=== PATIENT | female | born 2000 | race Caucasian/White ===

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

== ENCOUNTER 2021-11-06 19:34 | Emergency (ER) | payer OTHER ==
[2021-11-06 22:01] LABS: Urine Blood Negative (Negative); Urine Glucose Negative (Negative); Urine Protein Negative (Negative); Urine Specific Gravity >=1.030 (1.005-1.030)
[2021-11-06 22:30] LABS: Albumin 4.1 g/dL (3.4-5.0); Bilirubin Total 0.5 mg/dL (0.2-1.0); Potassium 3.7 mmol/L (3.5-5.1)
[2021-11-06] MEDS ORDERED: ONDANSETRON 4 MG/2 ML VIAL ONE (22:31)
[2021-11-06] MEDS ORDERED: NA CHLORIDE 0.9% 1,000 ML ONE (22:32)
[2021-11-06 22:33] LABS: Absolute Lymphocytes (CBC) 2.8 K/uL (0.7-4.9); Hematocrit 36.9 % (36.0-45.0); Lymphocytes % 34.5 % (15.3-44.8); MCV 85.7 fL (80-100); MPV 9.3 fL (7.6-11.3)
[2021-11-07] MEDS ORDERED: ACETAMINOPHEN 500 MG TAB ONE (00:06)
--- NOTE | 2021-11-07 05:14 | EDPHYS ---
Physician Documentation [facility] Name: Zia Eric Age: 20 yrs Sex: Female : 2000 Arrival Date: 11/06/2021 Time: 19:37 Bed 16 Private MD: ED Physician Abhilash Anderson HPI: 11/07 03:38 This 20 yrs old Black Female presents to ER via Ambulatory with complaints of Abdominal kdr Pain, Diarrhea, Chest Congestion, Cough. 03:38 The patient presents to the emergency department with nausea, that is mild, vomiting, kdr that is intermittent, abdominal pain, of the suprapubic area, right lower quadrant and left lower quadrant. Onset: The symptoms/episode began/occurred gradually, 6 day(s) ago. Possible causes: unknown, sick contacts. The symptoms are aggravated by nothing. The symptoms are alleviated by nothing. Associated signs and symptoms: Pertinent positives: nausea, vomiting, Pertinent negatives: anorexia, belching, constipation, diarrhea, dysuria, fever, flatulence, GI bleeding, hematuria, vaginal discharge. Severity of symptoms: At their worst the symptoms were mild in the emergency department the symptoms are unchanged have improved markedly. The patient has not experienced similar symptoms in the past. The patient has not recently seen a physician. Patient presents to the ED this evening complaining of stomach cramps and congestion which she has had symptoms 02 November when she found out she was . Since then she has had this intermittent symptoms. She does not appear toxic in the ED. This is her first .. MEDICAL LANGUAGE SPECIALIST: 11/06 20:28 LMP 10/08/2021 [facility] Historical: - Allergies: 20:28 Ceftibuten; [facility] - Home Meds: 20:28 None [Active]; [facility] - PMHx: 20:28 Anxiety; Asthma; Bipolar disorder; Depression; suicidal ideation; [facility] - Immunization history:: Adult Immunizations up to date. - Social history:: Smoking status: Patient denies any tobacco usage or history of. ROS: 11/07 03:38 Constitutional: Negative for fever, chills, and weight loss, Eyes: Negative for injury, kdr pain, redness, and discharge, ENT: Negative for injury, pain, and discharge, Neck: Negative for injury, pain, and swelling, Cardiovascular: Negative for chest pain, palpitations, and edema, Respiratory: Negative for shortness of breath, cough, wheezing, and pleuritic chest pain, Back: Negative for injury and pain, : Negative for injury, bleeding, discharge, and swelling, MS/Extremity: Negative for injury and deformity, Skin: Negative for injury, rash, and discoloration, Neuro: Negative for headache, weakness, numbness, tingling, and seizure activity. Abdomen/GI: Positive for nausea and vomiting, abdominal cramps. Exam: 03:38 Constitutional: This is a well developed, well nourished patient who is awake, alert, kdr and in no acute distress. Head/Face: Normocephalic, atraumatic. Eyes: Pupils equal round and reactive to light, extra-ocular motions intact. Lids and lashes normal. Conjunctiva and sclera are non-icteric and not injected. Cornea within normal limits. Periorbital areas with no swelling, redness, or edema. Neck: Trachea midline, no thyromegaly or masses palpated, and no cervical lymphadenopathy. Supple, full range of motion without nuchal rigidity, or vertebral point tenderness. No Meningismus. Chest/axilla: Normal chest wall appearance and motion. Nontender with no deformity. No lesions are appreciated. Cardiovascular: Regular rate and rhythm with a normal S1 and S2. No gallops, murmurs, or rubs. Normal PMI, no JVD. No pulse deficits. Respiratory: Lungs have equal breath sounds bilaterally, clear to auscultation and percussion. No rales, rhonchi or wheezes noted. No increased work of breathing, no retractions or nasal flaring. Back: No spinal tenderness. No costovertebral tenderness. Full range of motion. Skin: Warm, dry with normal turgor. Normal color with no rashes, no lesions, and no evidence of cellulitis. MS/ Extremity: Pulses equal, no cyanosis. Neurovascular intact. Full, normal range of motion. Neuro: Awake and alert, GCS 15, oriented to person, place, time, and situation. Cranial nerves II-XII grossly intact. Motor strength 5/5 in all extremities. Sensory grossly intact. Cerebellar exam normal. Normal gait. Psych: Awake, alert, with orientation to person, place and time. Behavior, mood, and affect are within normal limits. 03:38 Abdomen/GI: Inspection: abdomen appears normal, Bowel sounds: normal, Palpation: soft, in all quadrants, nontender, in all quadrants, mass, is not appreciated, rebound tenderness, is not appreciated. Vital Signs: 11/06 20:27 BP 131 / 67; Pulse 61; Resp 18; Temp 98.1(TE); Pulse Ox 100% on R/A; Weight 56.7 kg; 1 Height 5 ft. 7 in. (170.18 cm); Pain 4/10; 22:00 BP 116 / 64; Pulse 60; Resp 18; Pulse Ox 100% ; bh1 23:00 BP 113 / 56; Pulse 67; Resp 18; Pulse Ox 100% on R/A; 1 11/07 01:13 BP 113 / 71; Pulse 56; Resp 17; Pulse Ox 100% on R/A; ll3 02:21 BP 109 / 65; Pulse 83; Resp 16; Pulse Ox 97% on R/A; ll3 03:34 BP 136 / 85; Pulse 64; Resp 17; Pulse Ox 98% on R/A; ll3 04:56 BP 130 / 70; Pulse 68; Resp 17; Pulse Ox 99% on R/A; ll3 11/06 20:27 Body Mass Index 19.58 (56.70 kg, 170.18 cm) [facility] MDM: 03:38 Data reviewed: vital signs, nurses notes, lab test result(s), radiologic studies. kdr Counseling: I had a detailed discussion with the patient and/or guardian regarding: the historical points, exam findings, and any diagnostic results supporting the discharge/admit diagnosis, lab results, radiology results. Special discussion: Based on the patient's Hx, exam, and Dx evaluation, there is no indication for emergent surgery or inpatient Tx. It is understood by the patient/guardian that if the Sx's persist or worsen they need to return immediately for re-evaluation. 05:13 Patient medically screened. kdr 11/06 21:10 Order name: CBC with Diff; Complete Time: 22:53 kdr 11/06 21:10 Order name: CMP; Complete Time: 22:53 kdr 11/06 21:10 Order name: Lipase; Complete Time: 22:53 kdr 11/06 21:10 Order name: Quantitative Hcg; Complete Time: 22:53 kdr 11/06 21:11 Order name: COVID-19 SARS RT PCR (Document "Date of Onset" if Symptomatic); Complete kdr Time: 22:53 11/06 21:11 Order name: Flu; Complete Time: 22:53 [facility] 11/06 21:10 Order name: IV Saline Lock; Complete Time: 22:07 [facility] 11/06 22:01 Order name: Urine Dipstick-Ancillary; Complete Time: 22:53 [facility] 11/06 23:26 Order name: US Abdomen Limited kdr 11/06 23:58 Order name: Transvaginal OB [facility] 11/06 21:10 Order name: Labs collected and sent; Complete Time: 22:07 [facility] 11/06 21:10 Order name: Urine Dipstick-Ancillary (obtain specimen); Complete Time: 22:06 [facility] Administered Medications: 11/06 22:31 Drug: NS 0.9% 1000 ml Route: IV; Rate: 1 bolus; Site: left antecubital; [facility] 23:43 Follow up: IV Status: Completed infusion; IV Intake: 1000ml [facility] 22:31 Drug: Zofran (Ondansetron) 4 mg Route: IVP; Site: left antecubital; [facility] 22:31 Follow up: Response: No adverse reaction [facility] 23:57 Drug: Tylenol 1000 mg Route: PO; [facility] 11/07 05:20 Follow up: Response: No adverse reaction 3 Disposition Summary: 11/07/21 05:13 Discharge Ordered Location: Home kdr Problem: new kdr Symptoms: have improved kdr Condition: Stable kdr Diagnosis - Lower abdominal pain, unspecified kdr - Encounter for supervision of normal first , first trimester kdr - Weeks of gestation of , unspecified or less than 10 weeks - 4 week/6 days kdr Followup: kdr - With: Private Physician - When: 2 - 3 days - Reason: If symptoms return, Further diagnostic work-up, Recheck today's complaints, Continuance of care, Re-evaluation by your physician Discharge Instructions: - Discharge Summary Sheet kdr - Abdominal Pain During kdr - First Trimester of , [id number] kdr - Abdominal Pain, Adult, [id number] kdr Forms: - Medication Reconciliation Form kdr - Thank You Letter kdr Signatures: Dispatcher Abhilash Summers MD MD kdr Adriana Greene RN RN [facility] Owen Cifuentes RN 3 Corrections: (The following items were deleted from the chart) 11/07 19: 20:28 Allergies: NKA; [place] [id number] 20:28 Home Meds: Abilify 7.5 mg Oral once daily; [place] [id number] 20: Home Meds: Depo-Provera intramuscular IM; [place] [id number] 20:28 Home Meds: Lexapro daily; [place] [address] 20:28 Home Meds: ProAir HFA inhalation; [place] [id number] 20:28 Home Meds: trazodone 100 mg Oral tab 1 tab once daily at bedtime; [place] [id number]
--- NOTE | 2021-11-07 05:14 | ER ---
Nurse's Notes [facility] Name: Zia Eric Age: 20 yrs Sex: Female : 2000 Arrival Date: 11/06/2021 Time: 19:37 Bed 16 Private MD: Diagnosis: Lower abdominal pain, unspecified;Encounter for supervision of normal first , first trimester;Weeks of gestation of , unspecified or less than 10 weeks-4 week/6 days Presentation: 11/06 20:27 Chief complaint: Patient states: N/V, STOMACH CRAMPS, AND CONGESTION SINCE 11/02 WHEN [facility] SHE FOUND OUT SHE WAS . Coronavirus screen: Vaccine status: Patient reports receiving the 2nd dose of the covid vaccine. Ebola Screen: Patient negative for fever greater than or equal to 101.5 degrees Fahrenheit, and additional compatible Ebola Virus Disease symptoms. Initial Sepsis Screen: Does the patient meet any 2 criteria? No. Patient's initial sepsis screen is negative. Does the patient have a suspected source of infection? No. Patient's initial sepsis screen is negative. Risk Assessment: Do you want to hurt yourself or someone else? Patient reports no desire to harm self or others. Onset of symptoms was November 06, 2021. 20:27 Method Of Arrival: Ambulatory [facility] 20:27 Acuity: EJ 4 [facility] Triage Assessment: 20:28 General: Appears in no apparent distress. Behavior is cooperative, appropriate for age, [facility] flat. Pain: Complains of pain in abdomen. GI: Reports cramping, diarrhea, nausea, vomiting. 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 - Social history:: Smoking status: Patient denies any tobacco usage or history of. Screenin:30 Abuse screen: Denies threats or abuse. Nutritional screening: No deficits noted. [facility] Tuberculosis screening: No symptoms or risk factors identified. Fall Risk None identified. Assessment: 22:29 Reassessment: No changes from previously documented assessment. [facility] 11/07 01:13 Reassessment: No changes from previously documented assessment. Patient and/or family ll3 updated on plan of care and expected duration. Pain level reassessed. Patient is alert, oriented x 3, equal unlabored respirations, skin warm/dry/pink. 02:21 Reassessment: Pt c/o LLQ pain 6/10, Dr. Anderson notified, no new orders at this time. ll3 03:24 Reassessment: No changes from previously documented assessment. Patient and/or family ll3 updated on plan of care and expected duration. Pain level reassessed. Patient is alert, oriented x 3, equal unlabored respirations, skin warm/dry/pink. 04:56 Reassessment: No changes from previously documented assessment. Patient and/or family ll3 updated on plan of care and expected duration. Pain level reassessed. Patient is alert, oriented x 3, equal unlabored respirations, skin warm/dry/pink. Vital Signs: 11/06 20:27 BP 131 / 67; Pulse 61; Resp 18; Temp 98.1(TE); Pulse Ox 100% on R/A; Weight 56.7 kg; 1 Height 5 ft. 7 in. (170.18 cm); Pain 4/10; 22:00 BP 116 / 64; Pulse 60; Resp 18; Pulse Ox 100% ; 1 23:00 BP 113 / 56; Pulse 67; Resp 18; Pulse Ox 100% on R/A; 1 11/07 01:13 BP 113 / 71; Pulse 56; Resp 17; Pulse Ox 100% on R/A; ll3 02:21 BP 109 / 65; Pulse 83; Resp 16; Pulse Ox 97% on R/A; ll3 03:34 BP 136 / 85; Pulse 64; Resp 17; Pulse Ox 98% on R/A; ll3 04:56 BP 130 / 70; Pulse 68; Resp 17; Pulse Ox 99% on R/A; ll3 11/06 20:27 Body Mass Index 19.58 (56.70 kg, 170.18 cm) [facility] ED Course: 11/06 19:37 Patient arrived in ED. ja2 20:28 Triage completed. 1 20:28 Arm band placed on right wrist. [facility] 20:58 Abhilash Anderson MD is Attending Physician. kdr 22:06 COVID-19 SARS RT PCR (Document "Date of Onset" if Symptomatic) Sent. [facility] 22:06 Quantitative Hcg Sent. 1 22:06 CBC with Diff Sent. 1 22:07 CMP Sent. 1 22:07 Lipase Sent. [facility] 22:07 No provider procedures requiring assistance completed. Inserted saline lock: 20 gauge bh1 in left antecubital area, using aseptic technique. Blood collected. 22:29 Adriana Greene, RN is Primary Nurse. [facility] 22:29 Patient has correct armband on for positive identification. [facility] 22:30 No apparent distress. Awaiting lab results. [facility] 22:30 Patient taken to an exam room. [facility] 22:30 Pulse ox on. NIBP on. [facility] 11/07 00:43 US Abdomen Limited In Process Unspecified. EDMS 00:43 Transvaginal OB In Process Unspecified. [facility] 05:20 IV discontinued, intact, bleeding controlled, No redness/swelling at site. Pressure ll3 dressing applied. Administered Medications: 11/06 22:31 Drug: NS 0.9% 1000 ml Route: IV; Rate: 1 bolus; Site: left antecubital; [facility] 23:43 Follow up: IV Status: Completed infusion; IV Intake: 1000ml [facility] 22:31 Drug: Zofran (Ondansetron) 4 mg Route: IVP; Site: left antecubital; [facility] 22:31 Follow up: Response: No adverse reaction [facility] 23:57 Drug: Tylenol 1000 mg Route: PO; [facility] 11/07 05:20 Follow up: Response: No adverse reaction 3 Medication: 11/06 22:30 VIS not applicable for this client. [facility] Intake: 23:43 IV: 1000ml; Total: 1000ml. [facility] Outcome: 11/07 05:13 Discharge ordered by . kdr 05:20 Discharged to home ambulatory, with family. ll3 05:20 Condition: stable 05:20 Discharge instructions given to patient, family, Instructed on discharge instructions, follow up and referral plans. Demonstrated understanding of instructions, follow-up care. 05:20 Patient left the ED. ll3 Signatures: Dispatcher [employer] EDMS Abhilash Anderson MD MD kdr Alexander, Jessica ja2 Loubet, Lynsea RN RN 3 Adriana Greene, KATHLEEN RN [facility] Corrections: (The following items were deleted from the chart) 11/07 19: 20:28 Allergies: NKA; [place] [id number] 20:28 Home Meds: Abilify 7.5 mg Oral once daily; [place] [id number] 20: Home Meds: Depo-Provera intramuscular IM; [place] [id number] 20: Home Meds: Lexapro daily; [place] [id number] 20:28 Home Meds: ProAir HFA inhalation; [place] [id number] 20:28 Home Meds: trazodone 100 mg Oral tab 1 tab once daily at bedtime; [place] [id number]
[2021-11-07 05:32] VITALS: TEMP 98.1
[2021-11-07 05:43] VITALS: BP 130/70; O2SAT 99
--- NOTE | 2021-11-07 10:25 | RAD REPORT ---
EXAM DESCRIPTION: US Abdomen Limited, Appendix CLINICAL HISTORY: The patient is 20 years old and is Female; ABD PAIN TECHNIQUE: Real-time ultrasound of the right lower quadrant with image documentation. COMPARISON: No relevant prior studies available. FINDINGS: Appendix: Appendix is not identified. Free fluid: No free fluid. IMPRESSION: Appendix not visualized. No free fluid. Electronically signed by: Indigo Spann MD 11/07/2021 4:57 AM CDT Due to temporary technical issues with the PACS/Fluency reporting system, reports are being signed by the in house radiologists without review as a courtesy to insure prompt reporting. The interpreting radiologist is fully responsible for the content of the report.
--- NOTE | 2021-11-07 10:26 | RAD REPORT ---
EXAM DESCRIPTION: Transvaginal OB CLINICAL HISTORY: 20 years Female, abd pain COMPARISON: None. TECHNIQUE: Sonographic imaging of the pelvis performed using a transvaginal transducer. FINDINGS: Uterus measures 6.4 cm x 3.4 cm x 4.3 cm and appears anteverted. Endometrial thickness is 0.6 cm. There is a tiny anechoic structure within the endometrial canal of the uterine fundus which c ould represent a tiny gestational sac with mean sac diameter of 0.29 cm corresponding to an estimated gestational age of 4 weeks and 6 days. No evidence of a pole or yolk sac. Right ovary measures 2.8 cm x 1.47 x 1.9 cm. Left ovary measures 3.3 cm x 2.2 cm x 2.6 cm. Both ovari es demonstrate Doppler flow. No adnexal mass. There is a trace amount of free fluid in the pelvis. IMPRESSION: Possible small early intrauterine gestational sac with estimated age by mean sac diamete r of 4 years and 6 days. pole is not visualized which could be related to early . Cons ider close interval follow-up ultrasound correlated with beta-hCG level. Electronically signed by: Terrell Juarez MD 11/07/2021 2:13 AM CDT Due to temporary technical issues with the PACS/Fluency reporting system, reports are being signed by the in house radiologists without review as a courtesy to insure prompt reporting. The interpreting radiologist is fully responsible for the content of the report.
== END 2021-11-07 05:20 | disposition home or self-care (01) ==
LOC: ER 19:34
DX: O26.891 Other specified pregnancy related conditions, first trimester (principal); Z3A.01 Less than 8 weeks gestation of pregnancy; Z88.8 Allergy status to other drugs, medicaments and biological substances
CPT/HCPCS: 36415; 76705; 76817; 80053; 81003; 83690; 84702; 85025; 87804 ×2; J2405; J7030; U0003; 96361; 96374; 99284

== ENCOUNTER 2022-03-16 20:53 | Emergency (ER) | payer OTHER ==
[2022-03-16] MEDS ORDERED: NA CHLORIDE 0.9% 1,000 ML ONE (22:43)
[2022-03-16] MEDS ORDERED: ONDANSETRON 4 MG/2 ML VIAL ONE (22:43)
[2022-03-16] MEDS ORDERED: DICYCLOMINE HCL 20 MG/2 ML AMP IM ONE (22:43)
[2022-03-16] MEDS ORDERED: ACETAMINOPHEN 500 MG TAB ONE (22:43)
[2022-03-16 22:56] LABS: SARS-COV-2 RT PCR NEGATIVE (NEGATIVE)
[2022-03-16 23:18] LABS: Absolute Lymphocytes (CBC) 1.9 K/uL (0.7-4.9); Lymphocytes % 13.8 % (15.3-44.8); MCV 86.7 fL (80-100); MPV 8.4 fL (7.6-11.3); RBC Red Blood Cell Count 3.69 M/uL (3.86-4.86)
[2022-03-16 23:21] LABS: Urine Blood Negative (Negative); Urine Glucose Trace (Negative); Urine Protein Negative (Negative)
[2022-03-16 23:35] LABS: Albumin 3.1 g/dL (3.4-5.0); Bilirubin Total 0.3 mg/dL (0.2-1.0); Potassium 3.6 mmol/L (3.5-5.1); Protein, Total 6.5 g/dL (6.4-8.2)
[2022-03-16 23:58] LABS: Urine Bacteria <20 /HPF (<20); Urine Mucus Slight /HPF (None Seen); Urine RBC <5 /HPF (None Seen)
--- NOTE | 2022-03-17 01:44 | EDPHYS ---
Physician Documentation [facility] Name: Zia Eric Age: 21 yrs Sex: Female : 2000 Arrival Date: 03/16/2022 Time: 20:57 Bed 5 Private MD: ED Physician Zev Silveira HPI: 03/17 00:14 This 21 yrs old Black Female presents to ER via Ambulatory with complaints of Fever, cp Sore Throat. 00:14 The patient reports fever, not measured (subjective). Onset: The symptoms/episode cp began/occurred 1 day(s) ago. 00:14 Associated signs and symptoms: Pertinent positives: abdominal pain, cough, times 1 cp week. nausea, sore throat, vomiting. Severity of symptoms: in the emergency department the symptoms are unchanged despite home interventions. Patient is 22 weeks and concerned that she has not felt baby move over past 3 hrs. Patient denies vaginal bleeding, denies leakage of fluids. [employer]: 03/16 21:54 1, 0, Living 0, LMP 10/13/2021, Verified, EDC 07/20/2022, kb3 Gestational age from LMP: 22 weeks 1 day Historical: - Allergies: 21:54 Ceftibuten; kb3 - Home Meds: 21:54 Abilify 7.5 mg Oral once daily [Active]; Lexapro daily [Active]; ProAir HFA inhalation kb3 [Active]; trazodone 100 mg Oral tab 1 tab once daily at bedtime [Active]; - PMHx: 21:54 Anxiety; Asthma; Bipolar disorder; Depression; suicidal ideation; kb3 - PSHx: 21:54 None; kb3 - Immunization history:: Adult Immunizations up to date, Client reports receiving the 2nd dose of the Covid vaccine, Last tetanus immunization: unknown. - Social history:: Smoking status: Patient/guardian denies using tobacco, Stopped _ months ago 3. ROS: 03/17 00:20 Constitutional: Negative for fever. cp 00:20 Eyes: Negative for injury, pain, redness, and discharge. cp 00:20 ENT: Positive for sore throat, Negative for drainage from ear(s), ear pain, difficulty swallowing, difficulty handling secretions. 00:20 Cardiovascular: Negative for chest pain, palpitations. 00:20 Respiratory: Positive for cough, Negative for shortness of breath, wheezing. 00:20 Abdomen/GI: Positive for abdominal pain, nausea and vomiting, Negative for diarrhea, constipation, anorexia, black/tarry stool, rectal bleeding. 00:20 : Negative for urinary symptoms, flank pain, vaginal bleeding, vaginal discharge, leakage of fluids. 00:20 Neuro: Negative for altered mental status, dizziness, headache, weakness. 00:20 All other systems are negative. Exam: 00:25 Constitutional: The patient appears in no acute distress, alert, awake, non-toxic, well cp developed, well nourished, uncomfortable. 00:25 Head/Face: Normocephalic, atraumatic. cp 00:25 Eyes: Periorbital structures: appear normal, Conjunctiva: normal, no exudate, no injection, Sclera: no appreciated abnormality, Lids and lashes: appear normal, bilaterally. 00:25 ENT: External ear(s): are unremarkable, Ear canal(s): are normal, clear, TM's: bulging, is not appreciated, bilaterally, dullness, bilaterally, erythema, is not appreciated, bilaterally, Nose: is normal, Mouth: Lips: moist, Oral mucosa: moist, Posterior pharynx: Airway: no evidence of obstruction, patent, Tonsils: with erythema, no enlargement, no exudate, swelling, is not appreciated, erythema, that is mild, exudate, is not appreciated. 00:25 Neck: ROM/movement: is normal, is supple, without pain, no range of motions limitations, no meningismus, Lymph nodes: no appreciated lymphadenopathy. 00:25 Chest/axilla: Inspection: normal. 00:25 Cardiovascular: Rate: tachycardic, Rhythm: regular. 00:25 Respiratory: the patient does not display signs of respiratory distress, Respirations: normal, no use of accessory muscles, no retractions, labored breathing, is not present, Breath sounds: are clear throughout, no decreased breath sounds, no stridor, no wheezing. 00:25 Abdomen/GI: Inspection: gravid appearance, is noted, Bowel sounds: active, all quadrants, Palpation: soft, in all quadrants, moderate abdominal tenderness, in the left upper quadrant, right lower quadrant and left lower quadrant, rebound tenderness, is not appreciated, voluntary guarding, is elicited in the left upper quadrant, right lower quadrant and left lower quadrant. 00:25 Back: pain, is absent, ROM is normal. Vital Signs: 03/16 21:46 BP 120 / 74; Pulse 100; Resp 20; Temp 98.7; Pulse Ox 97% ; Weight 70.31 kg; Height 5 kb3 ft. 6 in. (167.64 cm); Pain 2/10; 23:19 BP 116 / 75; Pulse 80; Resp 16; Pulse Ox 100% on R/A; kl 03/17 02:08 Pulse 78; Resp 20; Pulse Ox 99% ; kl 03/16 21:46 Body Mass Index 25.02 (70.31 kg, 167.64 cm) kb3 MDM: 03/16 22:07 Patient medically screened. cp 03/17 00:00 Differential diagnosis: viral Infection, bacterial infection, URI, bronchitis, cp pneumonia UTI, gastroenteritis. 01:43 Data reviewed: vital signs, nurses notes, lab test result(s), radiologic studies, plain cp films, ultrasound. 01:43 Test interpretation: by ED physician or midlevel provider: plain radiologic studies. cp Counseling: I had a detailed discussion with the patient and/or guardian regarding: the historical points, exam findings, and any diagnostic results supporting the discharge/admit diagnosis, lab results, radiology results, the need for outpatient follow up, an OB/Gyne specialist, to return to the emergency department if symptoms worsen or persist or if there are any questions or concerns that arise at home. Response to treatment: the patient's symptoms have markedly improved after treatment, and as a result, I will discharge patient. 01:44 Special discussion: Based on the patient's Hx, exam, and Dx evaluation, there is no cp indication for emergent surgery or inpatient Tx. It is understood by the patient/guardian that if the Sx's persist or worsen they need to return immediately for re-evaluation. 01:44 ED course: Patient declines going upstairs to L\T\D for monitoring of baby at this time. cp 03/16 21:53 Order name: Urine Microscopic Only; Complete Time: 00:11 cp 03/17 00:12 Interpretation: Reviewed. cp 03/16 21:53 Order name: COVID-19/FLU A+B/RSV; Complete Time: 00:11 cp 03/16 21:53 Order name: Strep; Complete Time: 00:11 cp 12/02 22:33 Order name: CBC with Diff; Complete Time: 00:11 cp 03/17 00:11 Interpretation: Normal except: WBC 13.80; RBC 3.69; HGB 10.9; HCT 32.0; JACOB% 78.4; LYM% cp 13.8; NEUT A 10.8. 12 22:33 Order name: CMP; Complete Time: 00:11 cp 03/17 00:11 Interpretation: Normal except: CL 109; GLUC 71; BUN 6; CRE 0.54; AST 13; ALB 3.1; A/G cp 0.9. 12 22:33 Order name: Lipase; Complete Time: 00:11 cp 03/16 23:21 Order name: Urine Dipstick-Ancillary; Complete Time: 00:12 EDOH 03/17 00:12 Interpretation: Reviewed. 03/16 23:24 Order name: Throat Culture EDOH 03/16 23:30 Order name: Urine --Ancillary (enter results); Complete Time: 00:11 ds4 03/17 00:13 Order name: XRAY Chest (1 view) 03/17 00:32 Order name: US Abdomen Limited: gallbladder 03/17 00:55 Order name: OB Limited EDOH 03/16 21:53 Order name: Urine Dipstick-Ancillary (obtain specimen); Complete Time: 23:32 03/16 21:53 Order name: Urine Test (obtain specimen); Complete Time: 23:32 03/16 21:54 Order name: FHT's; Complete Time: 23:19 03/16 22:33 Order name: IV Saline Lock; Complete Time: 23:13 03/16 22:33 Order name: Labs collected and sent; Complete Time: 23:13 cp Administered Medications: 03/16 23:10 Drug: Dicyclomine 20 mg Route: IM; Site: left deltoid; 03/17 00:31 Follow up: Response: No adverse reaction; Marked relief of symptoms 03/16 23:19 Not Given (Patient Refused): Tylenol 1000 mg PO once 23:19 Drug: NS 0.9% 1000 ml Route: IV; Rate: 1 bolus; Site: right antecubital; 03/17 00:32 Follow up: IV Status: Completed infusion; IV Intake: 1000ml 03/16 23:19 Drug: Zofran (Ondansetron) 4 mg Route: IVP; Site: right antecubital; 03/17 00:32 Follow up: Response: No adverse reaction; Marked relief of symptoms Disposition: 02:30 Co-signature as Attending Physician, Zev Silveira DO I was immediately available onsite ms3 in the emergency department for consultation in the care of the patient. Disposition Summary: 03/17/22 01:44 Discharge Ordered Location: Home cp Problem: new cp Symptoms: have improved cp Condition: Stable cp Diagnosis - Acute pharyngitis, unspecified cp - related conditions, unspecified, second trimester cp - Nausea with vomiting, unspecified cp - Abdominal pain, unspecified cp - Cough cp Followup: cp - With: Private Physician - When: 2 - 3 days - Reason: Recheck today's complaints Discharge Instructions: - Discharge Summary Sheet cp - Abdominal Pain During cp - Second Trimester of cp - Activity Restriction During cp - Cough, Adult cp - Pharyngitis cp - Eating Plan for Women cp Forms: - Medication Reconciliation Form cp - Thank You Letter cp - Antibiotic Education cp - Prescription Opioid Use cp Prescriptions: - Amoxicillin 875 mg Oral Tablet - take 1 tablet by ORAL route every 12 hours for 10 days; 20 tablet; Refills: 0, cp Product Selection Permitted Signatures: Dispatcher [employer] EDMS Elena Dias, RN RN Garret Xiong PA PA cp Zev Silveira DO DO ms3 Phyllis Chan RN RN kb3 Corrections: (The following items were deleted from the chart) 03/16 21:55 21:54 Home Meds: Depo-Provera intramuscular IM; kb3 kb3 03/17 00:55 00:33 OB Complete+US.RAD.BRZ ordered. EDMS EDMS
--- NOTE | 2022-03-17 01:44 | ER ---
Nurse's Notes [facility] Name: Zia Eric Age: 21 yrs Sex: Female : 2000 Arrival Date: 03/16/2022 Time: 20:57 Bed 5 Private MD: Diagnosis: Acute pharyngitis, unspecified; related conditions, unspecified, second trimester;Nausea with vomiting, unspecified;Abdominal pain, unspecified;Cough Presentation: 03/16 21:46 Chief complaint: Patient states: Pt reports fever x 1 day, productive cough x1 week, kb3 and sore throat x2 days. States she is 22 weeks and has not felt the baby move in 3 hrs. Coronavirus screen: Vaccine status: Patient reports receiving the 2nd dose of the covid vaccine. Ebola Screen: Patient negative for fever greater than or equal to 101.5 degrees Fahrenheit, and additional compatible Ebola Virus Disease symptoms Patient denies exposure to infectious person. Patient denies travel to an Ebola-affected area in the 21 days before illness onset. No symptoms or risks identified at this time. Initial Sepsis Screen: Does the patient meet any 2 criteria? No. Patient's initial sepsis screen is negative. Does the patient have a suspected source of infection? No. Patient's initial sepsis screen is negative. Risk Assessment: Do you want to hurt yourself or someone else? Patient reports no desire to harm self or others. Onset of symptoms is unknown. 21:46 Method Of Arrival: Ambulatory kb3 21:46 Acuity: EJ 3 kb3 Triage Assessment: 21:54 General: Appears in no apparent distress. Behavior is calm, cooperative. Pain: kb3 Complains of pain in suprapubic area, right lower quadrant and left lower quadrant Pain does not radiate. Pain currently is 3 out of 10 on a pain scale. Quality of pain is described as crampy. 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 - Social history:: Smoking status: Patient/guardian denies using tobacco, Stopped _ months ago 3. Screenin:21 Abuse screen: Denies threats or abuse. Nutritional screening: No deficits noted. kl Tuberculosis screening: No symptoms or risk factors identified. Fall Risk None identified. Assessment: 23:20 General: Appears in no apparent distress. comfortable, Behavior is calm, cooperative. kl Pain: Complains of pain in left lower quadrant and right lower quadrant and suprapubic area. Neuro: No deficits noted. Cardiovascular: No deficits noted. Respiratory: Airway is patent Respiratory effort is even, unlabored, Breath sounds are clear bilaterally. GI: Reports lower abdominal pain, upper abdominal pain. : No deficits noted. No signs and/or symptoms were reported regarding the genitourinary system. EENT: No deficits noted. Throat is pink. 03/17 02:00 Reassessment: Patient appears in no apparent distress at this time. Patient and/or kl family updated on plan of care and expected duration. Pain level reassessed. Patient is alert, oriented x 3, equal unlabored respirations, skin warm/dry/pink. Patient states symptoms have improved. Vital Signs: 03/16 21:46 BP 120 / 74; Pulse 100; Resp 20; Temp 98.7; Pulse Ox 97% ; Weight 70.31 kg; Height 5 kb3 ft. 6 in. (167.64 cm); Pain 2/10; 23:19 BP 116 / 75; Pulse 80; Resp 16; Pulse Ox 100% on R/A; kl 03/17 02:08 Pulse 78; Resp 20; Pulse Ox 99% ; kl 03/16 21:46 Body Mass Index 25.02 (70.31 kg, 167.64 cm) kb3 ED Course: 03/16 20:57 Patient arrived in ED. ja2 21:06 Garret Vila PA is PHCP. cp 21:07 Silveira, Zev, DO is Attending Physician. cp 21:54 Triage completed. kb3 21:54 Arm band placed on right wrist. kb3 22:06 Strep Sent. tw5 22:06 COVID-19/FLU A+B/RSV Sent. tw5 23:00 Initial lab(s) drawn, by me, sent to lab. Inserted saline lock: 20 gauge in right wm antecubital area, using aseptic technique. Blood collected. 23:13 CBC with Diff Sent. wm 23:13 CMP Sent. wm 23:13 Lipase Sent. wm 23:19 CBC with Diff Sent. kl 23:19 CMP Sent. kl 23:19 Lipase Sent. kl 23:20 Client placed on continuous cardiac and pulse oximetry monitoring. NIBP monitoring kl applied. FHT 158. 23:31 Urine collected: clean catch specimen, cloudy. 23:32 Urine Microscopic Only Sent. 12/ 01:37 XRAY Chest (1 view) In Process Unspecified. EDMS 01:54 US Abdomen Limited: gallbladder In Process Unspecified. EDMS 01:54 OB Limited In Process Unspecified. EDMS 02:04 Dressings: Band aid x 1 right antecubital area. Removal of peripheral IV. Catheter wm intact, dressing applied. 02:22 No provider procedures requiring assistance completed. IV discontinued, intact, kl bleeding controlled, No redness/swelling at site. Pressure dressing applied. 02:23 Patient has correct armband on for positive identification. kl Administered Medications: 03/16 23:10 Drug: Dicyclomine 20 mg Route: IM; Site: left deltoid; 03/17 00:31 Follow up: Response: No adverse reaction; Marked relief of symptoms 03/16 23:19 Not Given (Patient Refused): Tylenol 1000 mg PO once 23:19 Drug: NS 0.9% 1000 ml Route: IV; Rate: 1 bolus; Site: right antecubital; 03/17 00:32 Follow up: IV Status: Completed infusion; IV Intake: 1000ml 03/16 23:19 Drug: Zofran (Ondansetron) 4 mg Route: IVP; Site: right antecubital; 03/17 00:32 Follow up: Response: No adverse reaction; Marked relief of symptoms Medication: 02:23 VIS not applicable for this client. kl Intake: 00:32 IV: 1000ml; Total: 1000ml. kl Outcome: 01:44 Discharge ordered by . cp 02:22 Discharged to home ambulatory, with family. kl 02:22 Condition: stable 02:22 Discharge instructions given to patient, family, Instructed on discharge instructions, follow up and referral plans. medication usage, Demonstrated understanding of instructions, follow-up care, medications, Prescriptions given X 1. 02:23 Patient left the ED. Signatures: Dispatcher [employer] EDMS Elena Dias RN RN Garret Xiong PA PA cp Marsh, Wendy wm Alexander, Jessica Moni [facility] Phyllis Chan RN RN kb3 Corrections: (The following items were deleted from the chart) 03/16 21:55 21:54 Home Meds: Depo-Provera intramuscular IM; kb3 kb3
[2022-03-17 02:39] VITALS: TEMP 98.7
[2022-03-17 02:44] VITALS: BP 116/75
[2022-03-17 02:50] VITALS: O2SAT 99
--- NOTE | 2022-03-17 20:27 | RAD REPORT ---
EXAM DESCRIPTION: RAD - Chest Single View - 03/17/2022 1:35 am CLINICAL HISTORY: Cough COMPARISON: Chest 2 Views AP PA Lateral 09/01/2020 report without images TECHNIQUE: Chest 1 View AP FINDINGS: Trachea midline. Heart size and pulmonary vessels within normal limits. Lungs clear without evidence of consolidation, mass, or significant pulmonary edema. No significant pleural effusion or pneumothorax. Mild symmetric bilateral lower lungs/chest density most likely represents overlying breast/chest wall attenuation artifact. Bones unremarkable. IMPRESSION: Normal chest radiograph. Electronically signed by: Ricardo Candelaria MD 03/17/2022 1:47 AM DIRECTOR RECREATION CENTER Due to temporary technical issues with the PACS/Fluency reporting system, reports are being signed by the in house radiologists without review as a courtesy to insure prompt reporting. The interpreting radiologist is fully responsible for the content of the report.
--- NOTE | 2022-03-17 20:28 | RAD REPORT ---
EXAM DESCRIPTION: US - Abdomen Exam Limited - 03/17/2022 1:52 am CLINICAL HISTORY: The patient is 21 years old and is Female; ABD PAIN TECHNIQUE: Real-time ultrasound of the right upper quadrant with image documentation. COMPARISON: No relevant prior studies available. FINDINGS: Gallbladder: Unremarkable. No gallstones. Common bile duct: Unremarkable as visualized. No stones. No dilation. IMPRESSION: Normal right upper quadrant ultrasound. Electronically signed by: Hector Fiore MD 03/17/2022 2:04 AM RN ANTE PARTUM Due to temporary technical issues with the PACS/Fluency reporting system, reports are being signed by the in house radiologists without review as a courtesy to insure prompt reporting. The interpreting radiologist is fully responsible for the content of the report.
--- NOTE | 2022-03-17 20:30 | RAD REPORT ---
EXAM DESCRIPTION: US - OB Limited - 03/17/2022 1:52 am CLINICAL HISTORY: ABD PAIN TECHNIQUE: Real-time transabdominal obstetrical ultrasound of the maternal pelvis and a second or th ird trimester with image documentation. COMPARISON: No relevant prior studies available. FINDINGS: Fetus: Single intrauterine gestation. Heart rate: cardiac activity measures 141 BPM. Presentation: Breech presentation. Placenta: The placenta is anterior in location. No previa. Amniotic fluid: Unremarkable. Anatomy: Calvarium, lateral ventricles, cerebellum, cisterna magna, orbits, nose/lips, profile, spi ne, four-chamber heart, diaphragm, stomach, bladder, three-vessel cord and cord insertion are visuali zed. BIOMETRICS Gestational age: 22 weeks 6 days. MARGOTH: 07/15/2022. EFW: 1 lbs 4 oz. BPD: 5.52 cm, 22 weeks 5 days. HC: 20.78 cm, 22 weeks 6 days. AC: 18.89 cm, 23 weeks 4 days. FL: 3.93 cm, 22 weeks 4 days. MATERNAL: Uterus: Unremarkable. No myometrial mass. Cervix: Unremarkable as visualized. Closed. Adnexa: Neither ovary is visualized. Free fluid: No free fluid. IMPRESSION: 1. Single live intrauterine gestation. 2. Estimated gestational age by ultrasound is 22 weeks 6 days. 3. Estimated due date by ultrasound is 07/15/2022. Electronically signed by: Candace Hyde MD 03/17/2022 2:41 AM MIDDLE SCHOOL ENGLISH TEACHER Due to temporary technical issues with the PACS/Fluency reporting system, reports are being signed by the in house radiologists without review as a courtesy to insure prompt reporting. The interpreting radiologist is fully responsible for the content of the report.
== END 2022-03-17 02:23 | disposition home or self-care (01) ==
LOC: ER 20:53
DX: O21.9 Vomiting of pregnancy, unspecified (principal); O26.892 Other specified pregnancy related conditions, second trimester; O99.342 Other mental disorders complicating pregnancy, second trimester; F31.9 Bipolar disorder, unspecified; Z3A.00 Weeks of gestation of pregnancy not specified; Z88.8 Allergy status to other drugs, medicaments and biological substances; Z20.822 Contact with and (suspected) exposure to COVID-19
CPT/HCPCS: 96361; 87070; 85025; 36415; 81025; 87081; 83690; 80053; 0241U; 71045; 76705; 76815; 96372; 96374; 99284; J0500; J7030; J2405; 81003; 81015

== ENCOUNTER → 2023-05-05 | Emergency (ER) | payer OTHER, SELFPAY ==
[~2023-05-05] MED LIST: AMOX/K CLAV 875 MG TAB ONE
--- NOTE | 2023-05-05 20:43 | EDPHYS ---
Physician Documentation [facility] Name: Zia Eric Age: 22 yrs Sex: Female : 2000 Arrival Date: 05/05/2023 Time: 20:31 Bed IW1 Private MD: ED Physician Zev Silveira HPI: 05/05 20:46 This 22 yrs old Black Female presents to ER via Ambulatory with complaints of Hearing kb problem with pressure. 20:46 Patient is a 22-year-old female who presents with decreased hearing to right ear and kb pressure in the left ear that started at 5 PM today. States she has had a upper respiratory infection over the last week. Denies fever.. 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 - Social history:: Smoking status: Reported history of juuling and/or vaping. ROS: 20:46 Constitutional: Negative for fever, chills, and weight loss, kb 20:46 ENT: Positive for ear pain, 20:46 All other systems are negative, Exam: 20:46 Constitutional: This is a well developed, well nourished patient who is awake, alert, kb and in no acute distress. Head/Face: Normocephalic, atraumatic. Respiratory: Respirations even and unlabored. No increased work of breathing. Talking in full sentences Skin: Warm, dry with normal turgor. Normal color. MS/ Extremity: Pulses equal, no cyanosis. Neurovascular intact. Full, normal range of motion. Neuro: Awake and alert, GCS 15, oriented to person, place, time, and situation. Moves all extremities. Normal gait. 20:46 ENT: External ear(s): are unremarkable, Ear canal(s): are normal, TM's: bulging, on the left, erythema, that is moderate, on the left, fluid levels, on the right, Vital Signs: 20:42 BP 139 / 94; Pulse 114; Resp 16; Temp 98.4(TE); Pulse Ox 100% ; Weight 67.59 kg; Height tl4 5 ft. 6 in. ; Pain 8/10; 20:42 Body Mass Index 24.05 (67.59 kg, 167.64 cm) tl4 20:42 Pain Scale: Adult tl4 MDM: 20:39 Patient medically screened. kb 20:48 Differential diagnosis: otitis media, otitis externa, ruptured TM, foreign body, acute kb otalgia. Data reviewed: vital signs, nurses notes. Counseling: I had a detailed discussion with the patient and/or guardian regarding the historical points, exam findings, and any diagnostic results supporting the discharge/admit diagnosis, the need for outpatient follow up, a family practitioner, to return to the emergency department if symptoms worsen or persist or if there are any questions or concerns that arise at home. Administered Medications: 20:54 CANCELLED (not availablee): [id number] mg PO once tl4 20:54 Drug: Amoxicillin-Clavulanate PO 875 mg PO once Route: PO; tl4 20:56 Follow up: Response: Medication administered at discharge. tl4 Disposition: 23:17 I was immediately available on-site in the Emergency Department for consultation in the ms3 care of the patient. Disposition Summary: 05/05/23 20:42 Discharge Ordered Notes: Location: Home kb Condition: Stable kb Diagnosis - Otitis media, unspecified, left ear kb Followup: kb - With: Emergency Department - When: As needed - Reason: Worsening of condition Followup: kb - With: Private Physician - When: 2 - 3 days - Reason: Recheck today's complaints, Continuance of care, Re-evaluation by your physician Discharge Instructions: - Discharge Summary Sheet kb - Otitis Media, Adult, Btjy-of-Daaw kb Forms: - Medication Reconciliation Form kb - Thank You Letter kb - Antibiotic Education kb - Prescription Opioid Use kb - Patient Portal Instructions kb - Leadership Thank You Letter kb Prescriptions: - Amoxicillin 875 mg Oral Tablet - take 1 tablet ORAL route every 12 hours for 10 days; 20 tablet; Refills: 0, kb Product Selection Permitted Signatures: Giulia Del Castillo, EMIGDIO GREGG-Zev Rodriguez DO DO ms3 Logdahl, Dhaval tl4 Corrections: (The following items were deleted from the chart) 20:54 20:43 Amoxicillin PO 875 mg PO once ordered. kb tl4
--- NOTE | 2023-05-05 20:58 | ER ---
Nurse's Notes [facility] Name: Zia Eric Age: 22 yrs Sex: Female : 2000 Arrival Date: 05/05/2023 Time: 20:31 Bed IW1 Private MD: Diagnosis: Otitis media, unspecified, left ear Presentation: 05/05 20:42 Chief complaint: Patient states: Pt c/o left ear pain since 1700 today. No drainage tl4 noted. No fever/chills. Coronavirus screen: Vaccine status: Patient reports receiving the 2nd dose of the covid vaccine. At this time, the client does not indicate any symptoms associated with coronavirus-19. Ebola Screen: Patient negative for fever greater than or equal to 101.5 degrees Fahrenheit, and additional compatible Ebola Virus Disease symptoms Patient denies exposure to infectious person. Patient denies travel to an Ebola-affected area in the 21 days before illness onset. No symptoms or risks identified at this time. Initial Sepsis Screen: Does the patient meet any 2 criteria? No. Patient's initial sepsis screen is negative. Does the patient have a suspected source of infection? No. Patient's initial sepsis screen is negative. Risk Assessment: Do you want to hurt yourself or someone else? Patient reports no desire to harm self or others. Onset of symptoms was May 05, 2023 at 17:00. 20:42 Method Of Arrival: Ambulatory tl4 20:42 Acuity: EJ 4 tl4 Triage Assessment: 20:45 General: Appears in no apparent distress. Behavior is calm, cooperative. Pain: tl4 Complains of pain in left ear. EENT: No signs and/or symptoms were reported regarding the EENT system. Neuro: No deficits noted. Cardiovascular: No deficits noted. Respiratory: No deficits noted. Breath sounds are clear bilaterally. Denies shortness of breath. GI: No signs and/or symptoms were reported involving the gastrointestinal system. : No signs and/or symptoms were reported regarding the genitourinary system. 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 - Social history:: Smoking status: Reported history of juuling and/or vaping. Screenin:46 [facility] ED Fall Risk Assessment (Adult) History of falling in the last 3 months, tl4 including since admission No falls in past 3 months (0 pts) Confusion or Disorientation No (0 pts) Intoxicated or Sedated No (0 pts) Impaired Gait No (0 pts) Mobility Assist Device Used No (0 pt) Altered Elimination No (0 pt) Score/Fall Risk Level 0 - 2 = Low Risk Oriented to surroundings, Maintained a safe environment, Educated pt \T\ family on fall prevention, incl call for assistance when getting out of bed, Assessed \T\ reinforced patient's understanding of fall precautions. Abuse screen: Denies threats or abuse. Denies injuries from another. Nutritional screening: No deficits noted. Tuberculosis screening: No symptoms or risk factors identified. Assessment: 20:47 Reassessment: No changes from previously documented assessment. Patient and/or family tl4 updated on plan of care and expected duration. Pain level reassessed. Patient is alert, oriented x 3, equal unlabored respirations, skin warm/dry/pink. Vital Signs: 20:42 BP 139 / 94; Pulse 114; Resp 16; Temp 98.4(TE); Pulse Ox 100% ; Weight 67.59 kg; Height tl4 5 ft. 6 in. ; Pain 8/10; 20:42 Body Mass Index 24.05 (67.59 kg, 167.64 cm) tl4 20:42 Pain Scale: Adult tl4 ED Course: 20:34 Patient arrived in ED. es 20:39 Giulia Del Castillo FNP-C is PHCP. kb 20:39 Zev Silveira DO is Attending Physician. kb 20:44 Triage completed. tl4 20:46 Arm band placed on right wrist. tl4 20:46 Patient has correct armband on for positive identification. Provided Education on: ED tl4 process. 20:46 No provider procedures requiring assistance completed. Patient did not have IV access tl4 during this emergency room visit. Administered Medications: 20:54 CANCELLED (not availablee): [id number] mg PO once tl4 20:54 Drug: Amoxicillin-Clavulanate PO 875 mg PO once Route: PO; tl4 20:56 Follow up: Response: Medication administered at discharge. tl4 Medication: 20:46 VIS not applicable for this client. tl4 Outcome: 20:42 Discharge ordered by . tahmina 20:56 Discharged to home ambulatory, with family, tl4 20:56 Condition: stable 20:56 Discharge instructions given to patient, Instructed on discharge instructions, follow up and referral plans. medication usage, Demonstrated understanding of instructions, follow-up care, medications, 20:57 Patient left the ED. tl4 Signatures: Giulia Del Castillo FNP-C FNP-Araceli Auguste Toni tl4
[2023-05-05 22:34] VITALS: BP 139/94; TEMP 98.4; O2SAT 100
== END ==
LOC: ER 20:31
DX: H66.92 Otitis media, unspecified, left ear (principal)
CPT/HCPCS: 99283

== ENCOUNTER 2024-02-06 11:03 | Emergency (ER) | payer SELFPAY ==
[2024-02-06 12:10] LABS: Absolute Basophils 0.1 K/uL (0-0.5); Absolute Eosinophils 0.1 K/uL (0-0.5); Absolute Lymphocytes (CBC) 2.4 K/uL (0.7-4.9); Absolute Monocytes 0.6 K/uL (0.1-1.3); Absolute Neutrophil 4.5 K/uL (1.8-8.0); Basophils % 0.9 % (0-1.3); Eosinophils % 1.6 % (0-4.4); Hematocrit 38.8 % (36.0-45.0); Hemoglobin 12.6 g/dL (12.0-15.0); Lymphocytes % 30.7 % (15.3-44.8); MCH 27.9 pg (27.0-35.0); MCHC 32.5 g/dL (32.0-36.0); MPV 8.9 fL (7.6-11.3); Monocytes % 7.8 % (3.3-12.3); Nucleated Red Blood Cells % 0.1 % (0-0); Platelets 230 thou/uL (152-406); RBC Red Blood Cell Count 4.51 M/uL (3.86-4.86); Red Cell Distribution Width 13.3 % (12.1-15.2)
[2024-02-06 12:29] LABS: Anion Gap 7.3 mEq/L (5.0-15.0); Potassium 4.3 mEq/L (3.5-5.1)
--- NOTE | 2024-02-06 12:36 | RAD REPORT ---
EXAM: Head Brain Wo Cont HISTORY: HEADACHE COMPARISON: None TECHNIQUE: Multiple contiguous axial images were obtained for a CT of the brain without contrast. Sag ittal and coronal reformats were performed. One or more of the following dose reduction techniques were used: Automated exposure control, adjus tment of the mA and kV according to patient size, and iterative reconstruction. Unless otherwise specified, incidental findings do not require dedicated imaging follow-up. FINDINGS: No evidence of hydrocephalus, intracranial hemorrhage, or extra-axial fluid collection. The brain is normal in morphology. The calvarium is intact. The visualized paranasal sinuses and mastoid air cells are essentially clear . IMPRESSION: No evidence of acute intracranial abnormality.
[2024-02-06] MEDS ORDERED: METOCLOPRAMIDE 10 MG/2mL INJ ONE (12:50)
[2024-02-06] MEDS ORDERED: NA CHLORIDE 0.9% 1,000 ML ONE (12:50)
[2024-02-06 13:13] LABS: Specific Gravity 1.013 (1.005-1.030)
[2024-02-06 13:14] LABS: Specific Gravity 1.013 (1.005-1.030); Sqamous Epithelial <5 /HPF (None Seen); Urine Bacteria None Seen /HPF (<20); Urine Bilirubin NEGATIVE (Negative); Urine Blood Negative (Negative); Urine Clarity Clear (Clear); Urine Color Colorless (Yellow); Urine Culture Reflex Order NOT NEEDED; Urine Glucose NEGATIVE (Negative); Urine Ketones NEGATIVE (Negative); Urine Microscopic Reflex YN ORDER UMIC; Urine Mucus Slight /HPF (None Seen); Urine Nitrite NEGATIVE (Negative); Urine Protein NEGATIVE (Negative); Urine RBC <5 /HPF (None Seen); Urine Urobilinogen Normal (Normal); Urine WBC Clump Rare /HPF (None Seen); Urine Yeast (Budding) Trace /HPF (None Seen); Urine pH 7.5 (5.0-7.0)
--- NOTE | 2024-02-06 14:00 | ER ---
Nurse's Notes [facility] Name: Zia Eric Age: 23 yrs Sex: Female : 2000 Arrival Date: 02/06/2024 Time: 11:03 Bed 11 Private MD: Diagnosis: Headache;Nausea with vomiting, unspecified Presentation: 02/05 11:24 Chief complaint: Patient states: N/V W/ HEADACHE X 1 WEEK. MIGRAINES X 3 DAYS GRADUALLY db GETTING WORSE. Coronavirus screen: Client denies travel out of the [place] in the last 14 days. At this time, the client does not indicate any symptoms associated with coronavirus-19. Ebola Screen: Patient negative for fever greater than or equal to 101.5 degrees Fahrenheit, and additional compatible Ebola Virus Disease symptoms Patient denies exposure to infectious person. Patient denies travel to an Ebola-affected area in the 21 days before illness onset. No symptoms or risks identified at this time. Initial Sepsis Screen: Does the patient meet any 2 criteria? No. Patient's initial sepsis screen is negative. Does the patient have a suspected source of infection? No. Patient's initial sepsis screen is negative. Risk Assessment: Do you want to hurt yourself or someone else? Patient reports no desire to harm self or others. Onset of symptoms was February 01, 2024. 11:24 Method Of Arrival: Ambulatory db 11:24 Acuity: EJ 3 db Triage Assessment: 11:26 General: Appears in no apparent distress. comfortable, Behavior is calm, cooperative. db Pain: Complains of pain in head. Neuro: Level of Consciousness is awake, alert, obeys commands, Oriented to person, place, time, situation, Reports headache. Cardiovascular: No deficits noted. Respiratory: Airway is patent Respiratory effort is even, unlabored, Respiratory pattern is regular, symmetrical. GI: Reports nausea, vomiting. 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 - Infectious Disease History:: Denies. - Social history:: Smoking status: Reported history of juuling and/or vaping. Screenin:08 [facility] ED Fall Risk Assessment (Adult) History of falling in the last 3 months, db including since admission No falls in past 3 months (0 pts) Confusion or Disorientation No (0 pts) Intoxicated or Sedated No (0 pts) Impaired Gait No (0 pts) Mobility Assist Device Used No (0 pt) Altered Elimination No (0 pt) Score/Fall Risk Level 0 - 2 = Low Risk Oriented to surroundings, Maintained a safe environment, Educated pt \T\ family on fall prevention, incl call for assistance when getting out of bed, Assessed \T\ reinforced patient's understanding of fall precautions. Abuse screen: Denies threats or abuse. Denies injuries from another. Nutritional screening: No deficits noted. Tuberculosis screening: No symptoms or risk factors identified. Assessment: 13:05 General: Appears in no apparent distress. Behavior is calm, cooperative. Pain: db Complains of pain in head. Neuro: Level of Consciousness is awake, alert, obeys commands, Oriented to person, place, time, situation, Moves all extremities. Full function Speech is normal, Facial symmetry appears normal, Reports headache photophobia Denies dizziness, difficulty swallowing. Cardiovascular: Denies chest pain, shortness of breath, Capillary refill < 3 seconds Patient's skin is warm and dry. Respiratory: Airway is patent Respiratory effort is even, unlabored, Respiratory pattern is regular, symmetrical, Breath sounds are clear bilaterally. Denies shortness of breath. GI: Abd is soft and non tender X 4 quads. Reports nausea, vomiting. : No signs and/or symptoms were reported regarding the genitourinary system. EENT: No signs and/or symptoms were reported regarding the EENT system. Derm: No signs and/or symptoms reported regarding the dermatologic system. Musculoskeletal: No signs and/or symptoms reported regarding the musculoskeletal system. Vital Signs: 11:24 BP 129 / 65; Pulse 70; Resp 16; Temp 98.4(O); Pulse Ox 100% ; Weight 72.12 kg; Height 5 db ft. 6 in. ; Pain 8/10; 13:07 BP 120 / 71; Pulse 73; Resp 16; Pulse Ox 100% on R/A; Pain 8/10; db 14:43 BP 125 / 74; Pulse 70; Resp 18; Temp 98(O); Pulse Ox 100% ; tl4 11:24 Body Mass Index 25.66 (72.12 kg, 167.64 cm) db 11:24 Pain Scale: Adult db 13:07 Pain Scale: Adult db ED Course: 11:09 Patient arrived in ED. sj2 11:13 Indigo Mendieta MD is Attending Physician. sd2 11:26 Triage completed. db 11:26 Arm band placed on right wrist. Patient placed in waiting room. db 12:06 BMP Sent. bc6 12:06 CBC with Diff Sent. bc6 12:06 Initial lab(s) drawn, by me, sent to lab. Inserted saline lock: 22 gauge in right bc6 antecubital area, using aseptic technique. Blood collected. Flushed with 10 mL NS. 12:24 CT Head Brain wo Cont In Process Unspecified. EDMS 12:48 Radha Calvert, RN is Primary Nurse. db 13:05 Test, Urine Sent. db 13:05 Urinalysis w/ reflexes Sent. db 13:08 Patient has correct armband on for positive identification. Placed in gown. Bed in low db position. Call light in reach. Side rails up X2. Adult w/ patient. Provided Education on: ed process, call [place]. Client placed on continuous cardiac and pulse oximetry monitoring. NIBP monitoring applied. Door closed. Noise minimized. Lights dimmed. Moved to private room. Warm blanket given. 13:33 Primary Nurse role handed off by Radha Calvert, KATHLEEN tl4 13:33 Dhaval Aaron, RN is Primary Nurse. tl4 14:38 No provider procedures requiring assistance completed. IV discontinued, intact, tl4 bleeding controlled, No redness/swelling at site. Pressure dressing applied. Administered Medications: 12:55 Drug: NS 0.9% IV 1000 ml IV at 1000 ml once; to be given as a bolus over 60 minutes db Route: IV; Rate: 1000 ml; Site: right antecubital; Delivery: Primary tubing; 13:22 Follow up: Response: No adverse reaction db 14:30 Follow up: IV Status: Completed infusion; IV Intake: 1000ml tl4 12:57 Drug: metoCLOPramide IVP 10 mg IVP once; over 1 to 2 minutes Route: IVP; Infused Over: db 3 mins; Site: right antecubital; 13:22 Follow up: Response: No adverse reaction; Nausea is decreased db Medication: 13:07 VIS not applicable for this client. db Intake: 14:30 IV: 1000ml; Total: 1000ml. tl4 Outcome: 13:59 Discharge ordered by . sd2 14:43 Discharged to home ambulatory, with family, tl4 14:43 Condition: stable 14:43 Discharge instructions given to patient, Instructed on discharge instructions, follow up and referral plans. medication usage, Demonstrated understanding of instructions, follow-up care, medications, Prescriptions given X 1, 14:45 Patient left the ED. tl4 Signatures: Dispatcher [employer] EDMS Indigo Mendieta MD MD sd2 Radha Calvert, RN RN Shakila Tomas6 Dhaval Aaron RN RN tl4 Davie Rowe 2
--- NOTE | 2024-02-06 14:00 | EDPHYS ---
Physician Documentation [facility] Name: Zia Eric Age: 23 yrs Sex: Female : 2000 Arrival Date: 02/06/2024 Time: 11:03 Bed 11 Private MD: ED Physician Indigo Mendieta HPI: 02/05 12:09 This 23 yrs old Black Female presents to ER via Ambulatory with complaints of sd2 Nausea/Vomiting, Headache > 24hrs Old, Headache, Worst Ever. 12:09 23 yo F presents with CC of n/v and bifrontal headache ongoing for the past week that sd2 worsened 3 days ago. Reports hx of migraines that normally resolve on their own or with Midol or Tylenol but has never been worked up for them or had a CT scan. No improvement with medication at home and unable to keep anything down. Endorses associated photophobia and phonophobia. Told by PCP to come due to possible dehydration.. 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 - Infectious Disease History:: Denies. - Social history:: Smoking status: Reported history of juuling and/or vaping. ROS: 12:09 Constitutional: Negative for fever, chills, and weight loss, Eyes: Negative for injury, sd2 pain, redness, and discharge, ENT: Negative for injury, pain, and discharge, Neck: Negative for injury, pain, and swelling, Cardiovascular: Negative for chest pain, palpitations, and edema, Respiratory: Negative for shortness of breath, cough, wheezing. 12:09 MS/Extremity: Negative for injury and deformity, Skin: Negative for injury, rash, and discoloration, 12:09 Abdomen/GI: Positive for nausea and vomiting, Negative for abdominal pain, 12:09 Neuro: Positive for headache, Negative for altered mental status, seizure activity, speech changes, Exam: 12:09 Constitutional: This is a well developed, well nourished patient who is awake, alert, sd2 and in no acute distress. Head/Face: Normocephalic, atraumatic. Eyes: EOMI, normal conjunctiva bilaterally Neck: Trachea midline, no thyromegaly or masses palpated, and no cervical lymphadenopathy. Supple, full range of motion without nuchal rigidity, or vertebral point tenderness. No Meningismus. Chest/axilla: Normal chest wall appearance and motion. Nontender with no deformity. Cardiovascular: Regular rate and rhythm with a normal S1 and S2. No gallops, murmurs, or rubs. 2+ distal pulses. Respiratory: Lungs have equal breath sounds bilaterally, clear to auscultation and percussion. No rales, rhonchi or wheezes noted. No increased work of breathing, no retractions or nasal flaring. Abdomen/GI: Soft, non-tender, with normal bowel sounds. No guarding or rebound. No evidence of tenderness throughout. Skin: Warm, dry with normal turgor. Normal color with no rashes, no lesions, and no evidence of cellulitis. MS/ Extremity: Pulses equal, no cyanosis. Neurovascular intact. Full, normal range of motion. Neuro: Awake and alert, GCS 15, oriented to person, place, time, and situation. Cranial nerves II-XII grossly intact. Motor strength 5/5 in all extremities. Sensory grossly intact. Cerebellar exam normal. Normal gait. Psych: Awake, alert, with orientation to person, place and time. Behavior, mood, and affect are within normal limits. Vital Signs: 11:24 BP 129 / 65; Pulse 70; Resp 16; Temp 98.4(O); Pulse Ox 100% ; Weight 72.12 kg; Height 5 db ft. 6 in. ; Pain 8/10; 13:07 BP 120 / 71; Pulse 73; Resp 16; Pulse Ox 100% on R/A; Pain 8/10; db 14:43 BP 125 / 74; Pulse 70; Resp 18; Temp 98(O); Pulse Ox 100% ; tl4 11:24 Body Mass Index 25.66 (72.12 kg, 167.64 cm) db 11:24 Pain Scale: Adult db 13:07 Pain Scale: Adult db MDM: 12:07 Medical Screening Exam initiated sd2 12:09 Differential diagnosis: tension MONSON, migraine MONSON, GE, dehydration, electrolyte sd2 abnormality, ICH among others. Data reviewed: vital signs, nurses notes, lab test result(s), radiologic studies. I considered the following discharge prescriptions or medication management in the emergency department Medications were administered in the Emergency Department. See MAR. Care significantly affected by the following chronic conditions: Mental illness. 13:58 Counseling: I had a detailed discussion with the patient and/or guardian regarding the sd2 historical points, exam findings, and any diagnostic results supporting the discharge/admit diagnosis, lab results, radiology results, the need for outpatient follow up, to return to the emergency department if symptoms worsen or persist or if there are any questions or concerns that arise at home. ED course: Pt feeling improved. Resting comfortably. MONSON, n/v resolved. Tolerating PO. Benign abdominal exam. No focal neuro deficits. Advised patient of results of labs and imaging which are negative. Pt comfortable with plan for dc and outpatient follow up. Verbalizes understanding of dc plan and strict return precautions. . 02/05 11:38 Order name: CBC with Diff; Complete Time: 12:36 sd2 02/05 11:38 Order name: BMP; Complete Time: 12:36 sd2 02/05 12:08 Order name: Urinalysis w/ reflexes; Complete Time: 13:15 sd2 02/05 12:08 Order name: Test, Urine; Complete Time: 13:15 sd2 02/05 12:08 Order name: CT Head Brain wo Cont; Complete Time: 12:36 sd2 02/05 13:16 Order name: PO challenge; Complete Time: 14:30 sd2 Administered Medications: 12:55 Drug: NS 0.9% IV 1000 ml IV at 1000 ml once; to be given as a bolus over 60 minutes db Route: IV; Rate: 1000 ml; Site: right antecubital; Delivery: Primary tubing; 13:22 Follow up: Response: No adverse reaction db 14:30 Follow up: IV Status: Completed infusion; IV Intake: 1000ml tl4 12:57 Drug: metoCLOPramide IVP 10 mg IVP once; over 1 to 2 minutes Route: IVP; Infused Over: db 3 mins; Site: right antecubital; 13:22 Follow up: Response: No adverse reaction; Nausea is decreased db Disposition Summary: 02/06/24 13:59 Discharge Ordered Problem: new sd2 Symptoms: have improved sd2 Condition: Stable sd2 Diagnosis - Headache sd2 - Nausea with vomiting, unspecified sd2 Followup: sd2 - With: Private Physician - When: 2 - 3 days - Reason: Recheck today's complaints, Continuance of care, Re-evaluation by your physician Discharge Instructions: - Discharge Summary Sheet sd2 - General Headache Without Cause sd2 - Migraine Headache sd2 Forms: - Medication Reconciliation Form sd2 - Antibiotic Education sd2 - Prescription Opioid Use sd2 - Patient Portal Instructions sd2 - Leadership Thank You Letter sd2 - Work release form tl4 Prescriptions: - ondansetron 4 mg Oral Tablet,disintegrating - take 1 tablet ORAL route every 4 to 6 hours As needed; 15 tablet; Refills: 0, sd2 Product Selection Permitted Signatures: Dispatcher [employer] EDIndigo Hicks MD MD sd2 Radha Calvert RN RN db Dhaval Aaron RN tl4 Corrections: (The following items were deleted from the chart) 12:09 12:09 Urinalysis+U.LAB.BRZ ordered. EDMS EDMS 12:09 12:09 Test, Urine+UC.LAB.BRZ ordered. EDMS EDMS
[2024-02-06 19:25] VITALS: O2SAT 100
[2024-02-06 19:30] VITALS: BP 125/74; TEMP 98
== END 2024-02-06 14:45 | disposition home or self-care (01) ==
LOC: ER 11:03
DX: R51.9 Headache, unspecified (principal); R11.2 Nausea with vomiting, unspecified
CPT/HCPCS: 36415; 70450; 80048; 81001; 81025; 85025; 96361; 96374; 99284; J2765; J7030

== ENCOUNTER 2024-05-18 13:19 | Emergency (ER) | payer SELFPAY ==
--- OUTSIDE RECORDS SUMMARY | 2024-05-18 13:28 | XMS REPORT | Continuity of Care Document ---
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 and ABX Free 6 MO-64 YRS 2022-02-28 00:00:00 Completed [facility] Influenza Virus Vaccine Quad IM, Preserv and ABX Free 6 MO-64 YRS 2022-02-28 00:00:00 Completed [facility] Influenza Virus Vaccine Quad IM, Preserv and ABX Free 6 MO-64 YRS 2022-02-28 00:00:00 Completed [facility] Influenza Virus Vaccine Quad IM, Preserv and ABX Free 6 MO-64 YRS 2022-02-28 00:00:00 Completed [facility] Influenza Virus Vaccine Quad IM, Preserv and ABX Free 6 MO-64 YRS 2022-02-28 00:00:00 Completed [facility] Influenza Virus Vaccine Quad IM, Preserv and ABX Free 6 MO-64 YRS 2022-02-28 00:00:00 Completed [facility] Influenza Virus Vaccine Quad IM, Preserv and ABX Free 6 MO-64 YRS 2022-02-28 00:00:00 Completed [facility] Influenza Virus Vaccine Quad IM, Preserv and ABX Free 6 MO-64 YRS 2022-02-28 00:00:00 Completed [facility] Influenza Virus Vaccine Quad IM, Preserv and ABX Free 6 MO-64 YRS 2022-02-28 00:00:00 Completed [facility] Influenza Virus Vaccine Quad IM, Preserv and ABX Free 6 MO-64 YRS 2022-02-28 00:00:00 Completed [facility] Influenza Virus Vaccine Quad IM, Preserv and ABX Free 6 MO-64 YRS 2022-02-28 00:00:00 Completed [facility] Influenza Virus Vaccine Quad IM, Preserv and ABX Free 6 MO-64 YRS 2022-02-28 00:00:00 Completed [facility] Influenza Virus Vaccine Quad IM, Preserv and ABX Free 6 MO-64 YRS 2022-02-28 00:00:00 Completed [facility] SARS-COV-2 COVID-19 MODERNA 12+ YRS VACCINE 2021-02-20 00:00:00 Completed [facility] SARS-COV-2 COVID-19 MODERNA 12+ YRS VACCINE 2021-02-20 00:00:00 Completed [facility] SARS-COV-2 COVID-19 MODERNA 12+ YRS VACCINE 2021-02-20 00:00:00 Completed [facility] SARS-COV-2 COVID-19 MODERNA 12+ YRS VACCINE 2021-02-20 00:00:00 Completed [facility] SARS-COV-2 COVID-19 MODERNA 12+ YRS VACCINE 2021-02-20 00:00:00 Completed [facility] SARS-COV-2 COVID-19 MODERNA 12+ YRS VACCINE 2021-02-20 00:00:00 Completed [facility] SARS-COV-2 COVID-19 MODERNA 12+ YRS VACCINE 2021-02-20 00:00:00 Completed [facility] SARS-COV-2 COVID-19 MODERNA 12+ YRS VACCINE 2021-02-20 00:00:00 Completed [facility] SARS-COV-2 COVID-19 MODERNA 12+ YRS VACCINE 2021-02-20 00:00:00 Completed [facility] SARS-COV-2 COVID-19 MODERNA 12+ YRS VACCINE 2021-02-20 00:00:00 Completed [facility] SARS-COV-2 COVID-19 MODERNA 12+ YRS VACCINE 2021-02-20 00:00:00 Completed [facility] SARS-COV-2 COVID-19 MODERNA 12+ YRS VACCINE 2021-02-20 00:00:00 Completed [facility] SARS-COV-2 COVID-19 MODERNA 12+ YRS VACCINE 2021-02-20 00:00:00 Completed [facility] SARS-COV-2 COVID-19 MODERNA 12+ YRS VACCINE 2021-02-20 00:00:00 Completed [facility] SARS-COV-2 COVID-19 MODERNA 12+ YRS VACCINE 2021-02-20 00:00:00 Completed [facility] SARS-COV-2 COVID-19 MODERNA 12+ YRS VACCINE 2021-02-20 00:00:00 Completed [facility] SARS-COV-2 COVID-19 MODERNA 12+ YRS VACCINE 2021-02-20 00:00:00 Completed [facility] SARS-COV-2 COVID-19 MODERNA 12+ YRS VACCINE 2021-02-20 00:00:00 Completed [facility] SARS-COV-2 COVID-19 MODERNA 12+ YRS VACCINE 2021-02-20 00:00:00 Completed [facility] SARS-COV-2 COVID-19 MODERNA 12+ YRS VACCINE 2021-02-20 00:00:00 Completed [facility] SARS-COV-2 COVID-19 MODERNA 12+ YRS VACCINE 2021-02-20 00:00:00 Completed [facility] SARS-COV-2 COVID-19 MODERNA 12+ YRS VACCINE 2021-02-20 00:00:00 Completed [facility] SARS-COV-2 COVID-19 MODERNA 12+ YRS VACCINE 2021-02-20 00:00:00 Completed [facility] SARS-COV-2 COVID-19 MODERNA 12+ YRS VACCINE 2021-02-20 00:00:00 Completed [facility] SARS-COV-2 COVID-19 MODERNA 12+ YRS VACCINE 2021-02-20 00:00:00 Completed [facility] SARS-COV-2 COVID-19 MODERNA 12+ YRS VACCINE 2021-02-20 00:00:00 Completed [facility] SARS-COV-2 COVID-19 MODERNA 12+ YRS VACCINE 2021-02-20 00:00:00 Completed [facility] SARS-COV-2 COVID-19 MODERNA 12+ YRS VACCINE 2021-02-20 00:00:00 Completed [facility] SARS-COV-2 COVID-19 MODERNA 12+ YRS VACCINE 2021-02-20 00:00:00 Completed [facility] SARS-COV-2 COVID-19 MODERNA 12+ YRS VACCINE 2021-02-20 00:00:00 Completed [facility] SARS-COV-2 COVID-19 MODERNA 12+ YRS VACCINE 2021-02-20 00:00:00 Completed [facility] SARS-COV-2 COVID-19 MODERNA 12+ YRS VACCINE 2021-02-20 00:00:00 Completed [facility] SARS-COV-2 COVID-19 MODERNA 12+ YRS VACCINE 2021-02-20 00:00:00 Completed [facility] SARS-COV-2 COVID-19 MODERNA 12+ YRS VACCINE 2021-02-20 00:00:00 Completed [facility] SARS-COV-2 COVID-19 MODERNA 12+ YRS VACCINE 2021-02-20 00:00:00 Completed [facility] SARS-COV-2 COVID-19 MODERNA VACCINE 2021-02-20 00:00:00 Completed [facility] SARS-COV-2 COVID-19 MODERNA VACCINE 2021-02-20 00:00:00 Completed [facility] SARS-COV-2 COVID-19 MODERNA VACCINE 2021-02-20 00:00:00 Completed [facility] SARS-COV-2 COVID-19 MODERNA VACCINE 2021-02-20 00:00:00 Completed [facility] SARS-COV-2 COVID-19 MODERNA VACCINE 2021-02-20 00:00:00 Completed [facility] SARS-COV-2 COVID-19 MODERNA VACCINE 2021-02-20 00:00:00 Completed [facility] SARS-COV-2 COVID-19 MODERNA VACCINE 2021-02-20 00:00:00 Completed [facility] SARS-COV-2 COVID-19 MODERNA VACCINE 2021-02-20 00:00:00 Completed [facility] SARS-COV-2 COVID-19 MODERNA 12+ YRS VACCINE 2021-02-20 00:00:00 Completed [facility] SARS-COV-2 COVID-19 MODERNA 12+ YRS VACCINE 2021-02-20 00:00:00 Completed [facility] SARS-COV-2 COVID-19 MODERNA 12+ YRS VACCINE 2021-02-20 00:00:00 Completed [facility] SARS-COV-2 COVID-19 MODERNA 12+ YRS VACCINE 2021-02-20 00:00:00 Completed [facility] SARS-COV-2 COVID-19 MODERNA 12+ YRS VACCINE 2021-02-20 00:00:00 Completed [facility] SARS-COV-2 COVID-19 MODERNA 12+ YRS VACCINE 2021-01-21 00:00:00 Completed [facility] SARS-COV-2 COVID-19 MODERNA 12+ YRS VACCINE 2021-01-21 00:00:00 Completed [facility] SARS-COV-2 COVID-19 MODERNA 12+ YRS VACCINE 2021-01-21 00:00:00 Completed [facility] SARS-COV-2 COVID-19 MODERNA 12+ YRS VACCINE 2021-01-21 00:00:00 Completed [facility] SARS-COV-2 COVID-19 MODERNA 12+ YRS VACCINE 2021-01-21 00:00:00 Completed [facility] SARS-COV-2 COVID-19 MODERNA 12+ YRS VACCINE 2021-01-21 00:00:00 Completed [facility] SARS-COV-2 COVID-19 MODERNA 12+ YRS VACCINE 2021-01-21 00:00:00 Completed [facility] SARS-COV-2 COVID-19 MODERNA 12+ YRS VACCINE 2021-01-21 00:00:00 Completed [facility] SARS-COV-2 COVID-19 MODERNA 12+ YRS VACCINE 2021-01-21 00:00:00 Completed [facility] SARS-COV-2 COVID-19 MODERNA 12+ YRS VACCINE 2021-01-21 00:00:00 Completed [facility] SARS-COV-2 COVID-19 MODERNA 12+ YRS VACCINE 2021-01-21 00:00:00 Completed [facility] SARS-COV-2 COVID-19 MODERNA 12+ YRS VACCINE 2021-01-21 00:00:00 Completed [facility] SARS-COV-2 COVID-19 MODERNA 12+ YRS VACCINE 2021-01-21 00:00:00 Completed [facility] SARS-COV-2 COVID-19 MODERNA 12+ YRS VACCINE 2021-01-21 00:00:00 Completed [facility] SARS-COV-2 COVID-19 MODERNA 12+ YRS VACCINE 2021-01-21 00:00:00 Completed [facility] SARS-COV-2 COVID-19 MODERNA 12+ YRS VACCINE 2021-01-21 00:00:00 Completed [facility] SARS-COV-2 COVID-19 MODERNA 12+ YRS VACCINE 2021-01-21 00:00:00 Completed [facility] SARS-COV-2 COVID-19 MODERNA 12+ YRS VACCINE 2021-01-21 00:00:00 Completed [facility] SARS-COV-2 COVID-19 MODERNA 12+ YRS VACCINE 2021-01-21 00:00:00 Completed [facility] SARS-COV-2 COVID-19 MODERNA 12+ YRS VACCINE 2021-01-21 00:00:00 Completed [facility] SARS-COV-2 COVID-19 MODERNA 12+ YRS VACCINE 2021-01-21 00:00:00 Completed [facility] SARS-COV-2 COVID-19 MODERNA 12+ YRS VACCINE 2021-01-21 00:00:00 Completed [facility] SARS-COV-2 COVID-19 MODERNA 12+ YRS VACCINE 2021-01-21 00:00:00 Completed [facility] SARS-COV-2 COVID-19 MODERNA 12+ YRS VACCINE 2021-01-21 00:00:00 Completed [facility] SARS-COV-2 COVID-19 MODERNA 12+ YRS VACCINE 2021-01-21 00:00:00 Completed [facility] SARS-COV-2 COVID-19 MODERNA 12+ YRS VACCINE 2021-01-21 00:00:00 Completed [facility] SARS-COV-2 COVID-19 MODERNA 12+ YRS VACCINE 2021-01-21 00:00:00 Completed [facility] SARS-COV-2 COVID-19 MODERNA 12+ YRS VACCINE 2021-01-21 00:00:00 Completed [facility] SARS-COV-2 COVID-19 MODERNA 12+ YRS VACCINE 2021-01-21 00:00:00 Completed [facility] SARS-COV-2 COVID-19 MODERNA 12+ YRS VACCINE 2021-01-21 00:00:00 Completed [facility] SARS-COV-2 COVID-19 MODERNA 12+ YRS VACCINE 2021-01-21 00:00:00 Completed [facility] SARS-COV-2 COVID-19 MODERNA 12+ YRS VACCINE 2021-01-21 00:00:00 Completed [facility] SARS-COV-2 COVID-19 MODERNA 12+ YRS VACCINE 2021-01-21 00:00:00 Completed [facility] SARS-COV-2 COVID-19 MODERNA 12+ YRS VACCINE 2021-01-21 00:00:00 Completed [facility] SARS-COV-2 COVID-19 MODERNA 12+ YRS VACCINE 2021-01-21 00:00:00 Completed [facility] SARS-COV-2 COVID-19 MODERNA VACCINE 2021-01-21 00:00:00 Completed [facility] SARS-COV-2 COVID-19 MODERNA VACCINE 2021-01-21 00:00:00 Completed [facility] SARS-COV-2 COVID-19 MODERNA VACCINE 2021-01-21 00:00:00 Completed [facility] SARS-COV-2 COVID-19 MODERNA VACCINE 2021-01-21 00:00:00 Completed [facility] SARS-COV-2 COVID-19 MODERNA VACCINE 2021-01-21 00:00:00 Completed [facility] SARS-COV-2 COVID-19 MODERNA VACCINE 2021-01-21 00:00:00 Completed [facility] SARS-COV-2 COVID-19 MODERNA VACCINE 2021-01-21 00:00:00 Completed [facility] SARS-COV-2 COVID-19 MODERNA VACCINE 2021-01-21 00:00:00 Completed [facility] SARS-COV-2 COVID-19 MODERNA 12+ YRS VACCINE 2021-01-21 00:00:00 Completed [facility] SARS-COV-2 COVID-19 MODERNA 12+ YRS VACCINE 2021-01-21 00:00:00 Completed [facility] SARS-COV-2 COVID-19 MODERNA 12+ YRS VACCINE 2021-01-21 00:00:00 Completed [facility] SARS-COV-2 COVID-19 MODERNA 12+ YRS VACCINE 2021-01-21 00:00:00 Completed [facility] SARS-COV-2 COVID-19 MODERNA 12+ YRS VACCINE 2021-01-21 00:00:00 Completed [facility] TDAP 2017-12-04 00:00:00 Completed [facility] Meningococcal Polysaccharide (groups A, C, Y and W-135) conjugate vaccine (MCV4P) 2017-12-04 00:00:00 Completed [facility] TDAP 2017-12-04 00:00:00 Completed [facility] Meningococcal Polysaccharide (groups A, C, Y and W-135) conjugate vaccine (MCV4P) 2017-12-04 00:00:00 Completed [facility] TDAP 2017-12-04 00:00:00 Completed [facility] Meningococcal Polysaccharide (groups A, C, Y and W-135) conjugate vaccine (MCV4P) 2017-12-04 00:00:00 Completed [facility] TDAP 2017-12-04 00:00:00 Completed [facility] Meningococcal Polysaccharide (groups A, C, Y and W-135) conjugate vaccine (MCV4P) 2017-12-04 00:00:00 Completed [facility] Tdap Tdap 2017-12-04 00:00:00 Completed [facility] meningococcal MCV4P meningococcal MCV4P 00:00:00 Completed [facility] Tdap Tdap 2017-12-04 00:00:00 Completed [facility] meningococcal MCV4P meningococcal MCV4P 00:00:00 Completed [facility] TDAP 2014-11-01 00:00:00 Completed [facility] Meningococcal Polysaccharide (groups A, C, Y and W-135) conjugate vaccine (MCV4P) 2014-11-01 00:00:00 Completed [facility] TDAP 2014-11-01 00:00:00 Completed [facility] Meningococcal Polysaccharide (groups A, C, Y and W-135) conjugate vaccine (MCV4P) 2014-11-01 00:00:00 Completed [facility] TDAP 2014-11-01 00:00:00 Completed [facility] Meningococcal Polysaccharide (groups A, C, Y and W-135) conjugate vaccine (MCV4P) 2014-11-01 00:00:00 Completed [facility] TDAP 2014-11-01 00:00:00 Completed [facility] Meningococcal Polysaccharide (groups A, C, Y and W-135) conjugate vaccine (MCV4P) 2014-11-01 00:00:00 Completed [facility] meningococcal MCV4P meningococcal MCV4P 00:00:00 Completed [facility] Benap Tdap 2014-11-01 00:00:00 Completed [facility] N[facility] meningococcal MCV4P meningococcal MCV4P 00:00:00 Completed [facility] Leona [facility] Benap Tdap 2014-11-01 00:00:00 Completed [facility] Influenza Virus Vaccine - Whole 2014-05-10 00:00:00 Completed [facility] Influenza Virus Vaccine - Whole 2014-05-10 00:00:00 Completed [facility] Influenza Virus Vaccine - Whole 2014-05-10 00:00:00 Completed [facility] Influenza Virus Vaccine - Whole 2014-05-10 00:00:00 Completed [facility] Influenza, seasonal, inj Influenza, seasonal, inj 2014-05-10 00:00:00 Completed [facility] Le[facility] Influenza, seasonal, inj Influenza, seasonal, inj 2014-05-10 00:00:00 Completed [facility] Influenza Virus Vaccine Nasal 2012-01-17 00:00:00 Completed [facility] Influenza Virus Vaccine Nasal 2012-01-17 00:00:00 Completed [facility] Influenza Virus Vaccine Nasal 2012-01-17 00:00:00 Completed [facility] Influenza Virus Vaccine Nasal 2012-01-17 00:00:00 Completed [facility] influenza, live, intrana influenza, live, intrana 2012-01-17 00:00:00 Completed Florinhumphrey Naylor influenza, live, intrana influenza, live, intrana 2012-01-17 00:00:00 Completed [facility] N[facility] Varicella (varivax)(chicken pox) 2011-12-04 00:00:00 Completed [facility] Varicella (varivax)(chicken pox) 2011-12-04 00:00:00 Completed [facility] Varicella (varivax)(chicken pox) 2011-12-04 00:00:00 Completed [facility] Varicella (varivax)(chicken pox) 2011-12-04 00:00:00 Completed [facility] varicella varicella 2011-12-04 00:00:00 Completed [facility] Leona [facility] varicella varicella 2011-12-04 00:00:00 Completed [facility] N[facility] Hep B, adolescent or ped Hep B, adolescent or ped 2011-12-01 00:00:00 Completed [facility] Hep B, adolescent or ped Hep B, adolescent or ped 2011-12-01 00:00:00 Completed [facility] Varicella (varivax)(chicken pox) 2009-02-02 00:00:00 Completed [facility] Varicella (varivax)(chicken pox) 2009-02-02 00:00:00 Completed [facility] Varicella (varivax)(chicken pox) 2009-02-02 00:00:00 Completed [facility] Varicella (varivax)(chicken pox) 2009-02-02 00:00:00 Completed [facility] varicella varicella 2009-02-02 00:00:00 Completed [facility] varicella varicella 2009-02-02 00:00:00 Completed [facility]in Naylor TDAP 2006-12-23 00:00:00 Completed [facility] MMR 2006-12-23 00:00:00 Completed [facility] IPV 2006-12-23 00:00:00 Completed [facility] TDAP 2006-12-23 00:00:00 Completed [facility] MMR 2006-12-23 00:00:00 Completed [facility] IPV 2006-12-23 00:00:00 Completed [facility] TDAP 2006-12-23 00:00:00 Completed [facility] MMR 2006-12-23 00:00:00 Completed [facility] IPV 2006-12-23 00:00:00 Completed [facility] TDAP 2006-12-23 00:00:00 Completed [facility] MMR 2006-12-23 00:00:00 Completed [facility] IPV 2006-12-23 00:00:00 Completed [facility] DTaP DTaP 2006-12-23 00:00:00 Completed [facility] MMR MMR 2006-12-23 00:00:00 Completed [facility] IPV IPV 2006-12-23 00:00:00 Completed [facility] DTaP DTaP 2006-12-23 00:00:00 Completed [facility] MMR MMR 2006-12-23 00:00:00 Completed [facility] IPV IPV 2006-12-23 00:00:00 Completed [facility] HEPA,NOS 2006-02-11 00:00:00 Completed [facility] HEPA,NOS 2006-02-11 00:00:00 Completed [facility] HEPA,NOS 2006-02-11 00:00:00 Completed [facility] HEPA,NOS 2006-02-11 00:00:00 Completed [facility] Hep A, ped/adol, 2 dose Hep A, ped/adol, 2 dose 2006-02-11 00:00:00 Completed [facility] Hep A, ped/adol, 2 dose Hep A, ped/adol, 2 dose 2006-02-11 00:00:00 Completed [facility] HEPA,NOS 2005-07-03 00:00:00 Completed [facility] HEPA,NOS 2005-07-03 00:00:00 Completed [facility] HEPA,NOS 2005-07-03 00:00:00 Completed [facility] HEPA,NOS 2005-07-03 00:00:00 Completed [facility] Hep A, ped/adol, 2 dose Hep A, ped/adol, 2 dose 2005-07-03 00:00:00 Completed [facility] N[facility] Hep A, ped/adol, 2 dose Hep A, ped/adol, 2 dose 2005-07-03 00:00:00 Completed [facility] N[facility] Varicella (varivax)(chicken pox) 2003-12-30 00:00:00 Completed [facility] Hep B, Unspecified Formulation 2003-12-30 00:00:00 Completed [facility] IPV 2003-12-30 00:00:00 Completed [facility] Pneumococcal 7 Conjugate, PCV7 (Prevnar7) 2003-12-30 00:00:00 Completed [facility] Varicella (varivax)(chicken pox) 2003-12-30 00:00:00 Completed [facility] Hep B, Unspecified Formulation 2003-12-30 00:00:00 Completed [facility] IPV 2003-12-30 00:00:00 Completed [facility] Pneumococcal 7 Conjugate, PCV7 (Prevnar7) 2003-12-30 00:00:00 Completed [facility] Varicella (varivax)(chicken pox) 2003-12-30 00:00:00 Completed [facility] Hep B, Unspecified Formulation 2003-12-30 00:00:00 Completed [facility] IPV 2003-12-30 00:00:00 Completed [facility] Pneumococcal 7 Conjugate, PCV7 (Prevnar7) 2003-12-30 00:00:00 Completed [facility] Varicella (varivax)(chicken pox) 2003-12-30 00:00:00 Completed [facility] Hep B, Unspecified Formulation 2003-12-30 00:00:00 Completed [facility] IPV 2003-12-30 00:00:00 Completed [facility] Pneumococcal 7 Conjugate, PCV7 (Prevnar7) 2003-12-30 00:00:00 Completed [facility] TDAP 2003-03-04 00:00:00 Completed [facility] MMR 2003-03-04 00:00:00 Completed [facility] Pneumococcal 7 Conjugate, PCV7 (Prevnar7) 2003-03-04 00:00:00 Completed [facility] TDAP 2003-03-04 00:00:00 Completed [facility] MMR 2003-03-04 00:00:00 Completed [facility] Pneumococcal 7 Conjugate, PCV7 (Prevnar7) 2003-03-04 00:00:00 Completed [facility] TDAP 2003-03-04 00:00:00 Completed [facility] MMR 2003-03-04 00:00:00 Completed [facility] Pneumococcal 7 Conjugate, PCV7 (Prevnar7) 2003-03-04 00:00:00 Completed [facility] TDAP 2003-03-04 00:00:00 Completed [facility] MMR 2003-03-04 00:00:00 Completed [facility] Pneumococcal 7 Conjugate, PCV7 (Prevnar7) 2003-03-04 00:00:00 Completed [facility] Hep B, Unspecified Formulation 2003-03-02 00:00:00 Completed [facility] Hep B, Unspecified Formulation 2003-03-02 00:00:00 Completed [facility] Hep B, Unspecified Formulation 2003-03-02 00:00:00 Completed [facility] Hep B, Unspecified Formulation 2003-03-02 00:00:00 Completed [facility] TDAP 2002-12-29 00:00:00 Completed [facility] TDAP 2002-12-29 00:00:00 Completed [facility] TDAP 2002-12-29 00:00:00 Completed [facility] TDAP 2002-12-29 00:00:00 Completed [facility] TDAP 2002-05-02 00:00:00 Completed [facility] IPV 2002-05-02 00:00:00 Completed [facility] Pneumococcal 7 Conjugate, PCV7 (Prevnar7) 2002-05-02 00:00:00 Completed [facility] TDAP 2002-05-02 00:00:00 Completed [facility] IPV 2002-05-02 00:00:00 Completed [facility] Pneumococcal 7 Conjugate, PCV7 (Prevnar7) 2002-05-02 00:00:00 Completed [facility] TDAP 2002-05-02 00:00:00 Completed [facility] IPV 2002-05-02 00:00:00 Completed [facility] Pneumococcal 7 Conjugate, PCV7 (Prevnar7) 2002-05-02 00:00:00 Completed [facility] TDAP 2002-05-02 00:00:00 Completed [facility] IPV 2002-05-02 00:00:00 Completed [facility] Pneumococcal 7 Conjugate, PCV7 (Prevnar7) 2002-05-02 00:00:00 Completed [facility] TDAP 2002-02-25 00:00:00 Completed [facility] IPV 2002-02-25 00:00:00 Completed [facility] Pneumococcal 7 Conjugate, PCV7 (Prevnar7) 2002-02-25 00:00:00 Completed [facility] TDAP 2002-02-25 00:00:00 Completed [facility] IPV 2002-02-25 00:00:00 Completed [facility] Pneumococcal 7 Conjugate, PCV7 (Prevnar7) 2002-02-25 00:00:00 Completed [facility] TDAP 2002-02-25 00:00:00 Completed [facility] IPV 2002-02-25 00:00:00 Completed [facility] Pneumococcal 7 Conjugate, PCV7 (Prevnar7) 2002-02-25 00:00:00 Completed [facility] TDAP 2002-02-25 00:00:00 Completed [facility] IPV 2002-02-25 00:00:00 Completed [facility] Pneumococcal 7 Conjugate, PCV7 (Prevnar7) 2002-02-25 00:00:00 Completed [facility] Hep B, Unspecified Formulation 2002-02-15 00:00:00 Completed [facility] Hep B, Unspecified Formulation 2002-02-15 00:00:00 Completed [facility] Hep B, Unspecified Formulation 2002-02-15 00:00:00 Completed [facility] Hep B, Unspecified Formulation 2002-02-15 00:00:00 Completed [facility] Hep B, Adol or Pedi Dosage 2001 00:00:00 Completed [facility] Hep B, Adol or Pedi Dosage 2001 00:00:00 Completed [facility] Hep B, Adol or Pedi Dosage 2001 00:00:00 Completed [facility] Hep B, Adol or Pedi Dosage 2001 00:00:00 Completed [facility] SARS-COV-2 COVID-19 MODERNA 12+ YRS VACCINE Unknown Completed [facility] Influenza Virus Vaccine Quad IM, Preserv and ABX Free 6 MO-64 YRS (FLUCELVAX) Unknown Completed [facility] TDAP Unknown Completed [facility] Varicella (varivax)(chicken pox) Unknown Completed [facility] MMR Unknown Completed [facility] Influenza Virus Vaccine - Whole Unknown Completed [facility] Influenza Virus Vaccine Nasal Unknown Completed [facility] HEPA,NOS Unknown Completed [facility] Hep B, Unspecified Formulation Unknown Completed [facility] Hep B, Adol or Pedi Dosage Unknown Completed [facility] Meningococcal Polysaccharide (groups A, C, Y and W-135) conjugate vaccine (MCV4P) Unknown Completed [facility] IPV Unknown Completed [facility] Pneumococcal 7 Conjugate, PCV7 (Prevnar7) Unknown Completed [facility] SARS-COV-2 COVID-19 MODERNA 12+ YRS VACCINE Unknown Completed [facility] Influenza Virus Vaccine Quad IM, Preserv and ABX Free 6 MO-64 YRS (FLUCELVAX) Unknown Completed [facility] TDAP Unknown Completed [facility] Varicella (varivax)(chicken pox) Unknown Completed [facility] MMR Unknown Completed [facility] Influenza Virus Vaccine - Whole Unknown Completed [facility] Influenza Virus Vaccine Nasal Unknown Completed [facility] HEPA,NOS Unknown Completed [facility] Hep B, Unspecified Formulation Unknown Completed [facility] Hep B, Adol or Pedi Dosage Unknown Completed [facility] Meningococcal Polysaccharide (groups A, C, Y and W-135) conjugate vaccine (MCV4P) Unknown Completed [facility] IPV Unknown Completed [facility] Pneumococcal 7 Conjugate, PCV7 (Prevnar7) Unknown Completed [facility] Influenza Virus Vaccine Quad IM, Preserv and ABX Free 6 MO-64 YRS (FLUCELVAX) Unknown Completed [facility] Influenza Virus Vaccine - Whole Unknown Completed [facility] Influenza Virus Vaccine Nasal Unknown Completed [facility] Hep B, Adol or Pedi Dosage Unknown Completed [facility] SARS-COV-2 COVID-19 MODERNA 12+ YRS VACCINE Unknown Completed [facility] TDAP Unknown Completed [facility] Varicella (varivax)(chicken pox) Unknown Completed [facility] MMR Unknown Completed [facility] HEPA,NOS Unknown Completed [facility] Hep B, Unspecified Formulation Unknown Completed [facility] Meningococcal Polysaccharide (groups A, C, Y and W-135) conjugate vaccine (MCV4P) Unknown Completed [facility] IPV Unknown Completed [facility] Pneumococcal 7 Conjugate, PCV7 (Prevnar7) Unknown Completed [facility] DTaP Unknown Completed Maki deleon - External HEPATITIS A- PEDI/ADOL Unknown [facility] Hepatitis B, Adolescent Or Pediatric Unknown [facility] External Influenza Virus Vaccine-Whole- Intranasal Unknown [facility] AFLURIA TRIVALENT MDV Unknown Completed Maki [facility] - External IPV- Inactivated Polio Vaccine Unknown [facility] Meningococcal Vaccine- Conjugate(Menactra) Unknown Completed Maki Villegas bo - External MMR- Measles, Mumps, Rubella Unknown Completed Maki [facility] - External Tdap- (Boostrix, Adacel) Unknown Completed [facility] External Varicella Vaccine Unknown Com[facility] DTaP Unknown Completed Maki deleon - External HEPATITIS A- PEDI/ADOL Unknown [facility] Hepatitis B, Adolescent Or Pediatric Unknown Completed Maki [facility] - External Influenza Virus Vaccine-Whole- Intranasal Unknown [facility] AFLURIA TRIVALENT MDV Unknown Completed Maki [facility] - External IPV- Inactivated Polio Vaccine Unknown Completed Maki [facility] - External Meningococcal Vaccine- Conjugate(Menactra) Unknown Completed Maki [facility] - External MMR- Measles, Mumps, Rubella Unknown Completed Maki [facility] - External Tdap- (Boostrix, Adacel) Unknown Completed Maki [facility] - External Varicella Vaccine Unknown Completed Mack skyey Seybold - External Vital Signs Vital Name Observation Time Observation Value Comments S ource Systolic blood pressure 2024-03-23 15:13:00 110 mm[Hg] Maki Seybo ld - External Diastolic blood pressure 2024-03-23 15:13:00 50 mm[Hg] Maki Seybo ld - External Heart rate 2024-03-23 15:13:00 72 /min Kelse y Seybold - External Body temperature 2024-03-23 15:13:00 36.72 Jelly Maki Seybold - External Respiratory rate 2024-03-23 15:13:00 16 /min Maki Seybold - External Body height 2024-03-23 15:13:00 167.6 cm Deidra ey Seybold - External Body weight 2024-03-23 15:13:00 73.029 kg Deidra ey Seybold - External BMI 2024-03-23 15:13:00 25.99 kg/m2 Deidra ey Seybold - External Systolic blood pressure 2023-12-24 21:19:00 116 mm[Hg] Mkai Seybo ld - External Diastolic blood pressure 2023-12-24 21:19:00 64 mm[Hg] Maki Seybo ld - External Heart rate 2023-12-24 21:19:00 76 /min Kelse y Seybold - External Body temperature 2023-12-24 21:19:00 36.72 Jelly Maki Seybold - External Respiratory rate 2023-12-24 21:19:00 20 /min Maki Seybold - External Body height 2023-12-24 21:19:00 167.6 cm Deidra ey Seybold - External Body weight 2023-12-24 21:19:00 72.349 kg Deidra ey Seybold - External BMI 2023-12-24 21:19:00 25.74 kg/m2 Deidra ey Seybold - External Oxygen saturation in Arterial blood by Pulse oximetry 2023-12-24 21:19:00 98 /min Maki Seybo ld - External Systolic blood pressure 2023-07-09 19:54:00 121 mm[Hg] [facility] Diastolic blood pressure 2023-07-09 19:54:00 73 mm[Hg] [facility] Heart rate 2023-07-09 19:54:00 86 /min Unive [facility] Body temperature 2023-07-09 19:54:00 36.67 Jelly [facility] Respiratory rate 2023-07-09 19:54:00 18 /min [facility] Body height 2023-07-09 19:54:00 167.6 cm Univ [facility] Body weight 2023-07-09 19:54:00 70.444 kg [facility] BMI 2023-07-09 19:54:00 25.07 kg/m2 [facility] Oxygen saturation in Arterial blood by Pulse oximetry 2023-07-09 19:54:00 100 /min [facility] Systolic blood pressure 2023-02-06 13:45:00 113 mm[Hg] [facility] Diastolic blood pressure 2023-02-06 13:45:00 76 mm[Hg] [facility] Heart rate 2023-02-06 13:45:00 73 /min Unive [facility] Body height 2023-02-06 13:45:00 167.6 cm [facility] Body weight 2023-02-06 13:45:00 67.813 kg [facility] BMI 2023-02-06 13:45:00 24.13 kg/m2 [facility] Oxygen saturation in Arterial blood by Pulse oximetry 2023-02-06 13:45:00 100 /min [facility] BMI 2022-11-02 14:24:00 25.99 kg/m2 [facility] Oxygen saturation in Arterial blood by Pulse oximetry 2022-11-02 14:24:00 97 /min [facility] Systolic blood pressure 2022-11-02 14:24:00 125 mm[Hg] [facility] Diastolic blood pressure 2022-11-02 14:24:00 82 mm[Hg] [facility] Heart rate 2022-11-02 14:24:00 108 /min Un[facility] Body temperature 2022-11-02 14:24:00 36.56 Jelly [facility] Respiratory rate 2022-11-02 14:24:00 18 /min [facility] Body height 2022-11-02 14:24:00 167.6 cm [facility] Body weight 2022-11-02 14:24:00 73.029 kg [facility] Systolic blood pressure 2022-09-26 13:44:00 120 mm[Hg] [facility] Diastolic blood pressure 2022-09-26 13:44:00 84 mm[Hg] [facility] Heart rate 2022-09-26 13:44:00 86 /min Unive [facility] Respiratory rate 2022-09-26 13:44:00 18 /min [facility] Body height 2022-09-26 13:44:00 167.6 cm [facility] Body weight 2022-09-26 13:44:00 75.252 kg [facility] BMI 2022-09-26 13:44:00 26.78 kg/m2 [facility] Oxygen saturation in Arterial blood by Pulse oximetry 2022-09-26 13:44:00 98 /min [facility] Systolic blood pressure 2022-08-29 16:13:00 126 mm[Hg] [facility] Diastolic blood pressure 2022-08-29 16:13:00 82 mm[Hg] [facility] Heart rate 2022-08-29 16:13:00 99 /min [facility] Body temperature 2022-08-29 16:13:00 36.78 Jelly [facility] Respiratory rate 2022-08-29 16:13:00 17 /min [facility] Body height 2022-08-29 16:13:00 167.6 cm [facility] Body weight 2022-08-29 16:13:00 75.025 kg [facility] BMI 2022-08-29 16:13:00 26.70 kg/m2 [facility] Systolic blood pressure 2022-08-01 18:10:00 117 mm[Hg] [facility] Diastolic blood pressure 2022-08-01 18:10:00 63 mm[Hg] [facility] Heart rate 2022-08-01 18:10:00 68 /min [facility] Body temperature 2022-08-01 18:10:00 36.83 Jelly [facility] Respiratory rate 2022-08-01 18:10:00 18 /min [facility] Body height 2022-08-01 18:10:00 167.6 cm [facility] Body weight 2022-08-01 18:10:00 75.479 kg [facility] BMI 2022-08-01 18:10:00 26.86 kg/m2 [facility] Systolic blood pressure 2022-07-17 14:54:00 129 mm[Hg] [facility] Diastolic blood pressure 2022-07-17 14:54:00 87 mm[Hg] [facility] Heart rate 2022-07-17 14:53:00 114 /min [facility] Body temperature 2022-07-17 14:53:00 36.72 Jelly [facility] Respiratory rate 2022-07-17 14:53:00 18 /min [facility] Body height 2022-07-17 14:53:00 167.6 cm [facility] Body weight 2022-07-17 14:53:00 78.472 kg [facility] BMI 2022-07-17 14:53:00 27.92 kg/m2 [facility] Systolic blood pressure 2022-07-12 17:36:00 125 mm[Hg] [facility] Diastolic blood pressure 2022-07-12 17:36:00 65 mm[Hg] [facility] Heart rate 2022-07-12 17:36:00 93 /min Un[facility] Body temperature 2022-07-12 17:36:00 37 Jelly [facility] Respiratory rate 2022-07-12 12:21:00 18 /min [facility] Oxygen saturation in Arterial blood by Pulse oximetry 2022-07-12 12:21:00 100 /min [facility] Body height 2022-07-10 16:19:00 167.6 cm [facility] Body weight 2022-07-10 16:19:00 85.639 kg [facility] BMI 2022-07-10 16:19:00 30.47 kg/m2 [facility] Systolic blood pressure 2022-07-10 14:25:00 142 mm[Hg] [facility] Diastolic blood pressure 2022-07-10 14:25:00 99 mm[Hg] [facility] Heart rate 2022-07-10 14:24:00 93 /min Un[facility] Body temperature 2022-07-10 14:24:00 36.67 Jelly [facility] Respiratory rate 2022-07-10 14:24:00 17 /min [facility] Body height 2022-07-10 14:24:00 167.6 cm [facility] Body weight 2022-07-10 14:24:00 86.365 kg [facility] BMI 2022-07-10 14:24:00 30.73 kg/m2 [facility] Systolic blood pressure 2022-07-03 15:45:00 130 mm[Hg] [facility] Diastolic blood pressure 2022-07-03 15:45:00 84 mm[Hg] [facility] Heart rate 2022-07-03 15:34:00 101 /min Un[facility] Respiratory rate 2022-07-03 15:34:00 18 /min [facility] Body height 2022-07-03 15:34:00 [facility] 2022-07-03 15:34:00 86.637 kg [facility] BMI 2022-07-03 15:34:00 30.83 kg/m2 [facility] Systolic blood pressure 2022-06-26 19:30:00 119 mm[Hg] [facility] Diastolic blood pressure 2022-06-26 19:30:00 78 mm[Hg] [facility] Heart rate 2022-06-26 19:29:00 80 /min [facility] Body temperature 2022-06-26 19:29:00 36.44 Jelly [facility] Body height 2022-06-26 19:29:00 167.6 cm [facility] Body weight 2022-06-26 19:29:00 83.008 kg [facility] BMI 2022-06-26 19:29:00 29.54 kg/m2 [facility] Systolic blood pressure 2022-06-20 19:21:00 132 mm[Hg] [facility] Diastolic blood pressure 2022-06-20 19:21:00 86 mm[Hg] [facility] Heart rate 2022-06-20 19:21:00 89 /min Un[facility] Body temperature 2022-06-20 19:21:00 36.72 Jelly [facility] Respiratory rate 2022-06-20 19:21:00 16 /min [facility] Body height 2022-06-20 19:21:00 167.6 cm [facility] Body weight 2022-06-20 19:21:00 83.326 kg [facility] BMI 2022-06-20 19:21:00 29.65 kg/m2 [facility] Oxygen saturation in Arterial blood by Pulse oximetry 2022-06-20 19:21:00 98 /min [facility] Systolic blood pressure 2022-06-06 19:05:00 111 mm[Hg] [facility] Diastolic blood pressure 2022-06-06 19:05:00 78 mm[Hg] [facility] Heart rate 2022-06-06 19:05:00 89 /min [facility] Body temperature 2022-06-06 19:05:00 36.72 Jelly [facility] Respiratory rate 2022-06-06 19:05:00 16 /min [facility] Body height 2022-06-06 19:05:00 167.6 cm [facility] Body weight 2022-06-06 19:05:00 82.827 kg [facility] BMI 2022-06-06 19:05:00 29.47 kg/m2 [facility] Oxygen saturation in Arterial blood by Pulse oximetry 2022-06-06 19:05:00 98 /min [facility] Systolic blood pressure 2022-05-23 16:01:00 129 mm[Hg] [facility] Diastolic blood pressure 2022-05-23 16:01:00 88 mm[Hg] [facility] Heart rate 2022-05-23 16:01:00 75 /min Un[facility] Body temperature 2022-05-23 16:01:00 36.78 Jelly [facility] Respiratory rate 2022-05-23 16:01:00 16 /min [facility] Body height 2022-05-23 16:01:00 167.6 cm [facility] Body weight 2022-05-23 16:01:00 78.472 kg [facility] BMI 2022-05-23 16:01:00 27.92 kg/m2 [facility] Oxygen saturation in Arterial blood by Pulse oximetry 2022-05-23 16:01:00 99 /min [facility] Systolic blood pressure 2022-05-09 19:04:00 125 mm[Hg] [facility] Diastolic blood pressure 2022-05-09 19:04:00 82 mm[Hg] [facility] Heart rate 2022-05-09 19:04:00 74 /min Unive [facility] Body temperature 2022-05-09 19:04:00 36.56 Jelly [facility] Respiratory rate 2022-05-09 19:04:00 18 /min [facility] Body height 2022-05-09 19:04:00 167.6 cm [facility] Body weight 2022-05-09 19:04:00 78.2 kg [facility] BMI 2022-05-09 19:04:00 27.83 kg/m2 [facility] Oxygen saturation in Arterial blood by Pulse oximetry 2022-05-09 19:04:00 98 /min [facility] Systolic blood pressure 2022-04-25 16:18:00 124 mm[Hg] [facility] Diastolic blood pressure 2022-04-25 16:18:00 84 mm[Hg] [facility] Heart rate 2022-04-25 16:18:00 65 /min Un[facility] Body temperature 2022-04-25 16:18:00 36.67 Jelly [facility] Respiratory rate 2022-04-25 16:18:00 18 /min [facility] Body height 2022-04-25 16:18:00 167.6 cm [facility] Body weight 2022-04-25 16:18:00 75.342 kg [facility] BMI 2022-04-25 16:18:00 26.81 kg/m2 [facility] Systolic blood pressure 2022-03-28 16:20:00 112 mm[Hg] [facility] Diastolic blood pressure 2022-03-28 16:20:00 76 mm[Hg] [facility] Heart rate 2022-03-28 16:20:00 82 /min Un[facility] Body temperature 2022-03-28 16:20:00 36.72 Jelly [facility] Respiratory rate 2022-03-28 16:20:00 16 /min [facility] Body height 2022-03-28 16:20:00 167.6 cm [facility] Body weight 2022-03-28 16:20:00 73.437 kg [facility] BMI 2022-03-28 16:20:00 26.13 kg/m2 [facility] Oxygen saturation in Arterial blood by Pulse oximetry 2022-03-28 16:20:00 98 /min [facility] Systolic blood pressure 2022-02-28 17:03:00 110 mm[Hg] [facility] Diastolic blood pressure 2022-02-28 17:03:00 60 mm[Hg] [facility] Heart rate 2022-02-28 17:03:00 75 /min Un[facility] Body temperature 2022-02-28 17:03:00 36.72 Jelly [facility] Respiratory rate 2022-02-28 17:03:00 18 /min [facility] Body height 2022-02-28 17:03:00 167.6 cm [facility] Body weight 2022-02-28 17:03:00 70.761 kg [facility] BMI 2022-02-28 17:03:00 25.18 kg/m2 [facility] Systolic blood pressure 2022-01-30 14:56:00 109 mm[Hg] [facility] Diastolic blood pressure 2022-01-30 14:56:00 70 mm[Hg] [facility] Heart rate 2022-01-30 14:56:00 79 /min Unive [facility] Body temperature 2022-01-30 14:56:00 36.61 Jelly [facility] Respiratory rate 2022-01-30 14:56:00 17 /min [facility] Body height 2022-01-30 14:56:00 167.6 cm [facility] Body weight 2022-01-30 14:56:00 68.493 kg [facility] BMI 2022-01-30 14:56:00 24.37 kg/m2 [facility] Systolic blood pressure 2022-01-16 15:21:00 113 mm[Hg] [facility] Diastolic blood pressure 2022-01-16 15:21:00 77 mm[Hg] [facility] Heart rate 2022-01-16 15:21:00 87 /min Unive [facility] Body temperature 2022-01-16 15:21:00 36.44 Jelly [facility] Body height 2022-01-16 15:21:00 167.6 cm [facility] Body weight 2022-01-16 15:21:00 67.314 kg [facility] BMI 2022-01-16 15:21:00 23.95 kg/m2 [facility] Oxygen saturation in Arterial blood by Pulse oximetry 2022-01-16 15:21:00 98 /min [facility] Systolic blood pressure 2021-12-29 16:07:00 106 mm[Hg] [facility] Diastolic blood pressure 2021-12-29 16:07:00 65 mm[Hg] [facility] Heart rate 2021-12-29 16:07:00 78 /min Un[facility] Body temperature 2021-12-29 16:07:00 36.72 Jelly [facility] Respiratory rate 2021-12-29 16:07:00 18 /min [facility] Body height 2021-12-29 16:07:00 167.6 cm [facility] Body weight 2021-12-29 16:07:00 67.586 kg [facility] BMI 2021-12-29 16:07:00 24.05 kg/m2 [facility] Systolic blood pressure 2021-12-01 14:50:00 112 mm[Hg] [facility] Diastolic blood pressure 2021-12-01 14:50:00 78 mm[Hg] [facility] Heart rate 2021-12-01 14:50:00 77 /min Un[facility] Body temperature 2021-12-01 14:50:00 36.78 Jelly [facility] Respiratory rate 2021-12-01 14:50:00 18 /min [facility] Body height 2021-12-01 14:50:00 167.6 cm [facility] Body weight 2021-12-01 14:50:00 68.13 kg [facility] BMI 2021-12-01 14:50:00 24.24 kg/m2 [facility] Oxygen saturation in Arterial blood by Pulse oximetry 2021-12-01 14:50:00 99 /min [facility] Systolic blood pressure 2021-11-16 19:02:00 106 mm[Hg] [facility] Diastolic blood pressure 2021-11-16 19:02:00 71 mm[Hg] [facility] Heart rate 2021-11-16 19:02:00 80 /min [facility] Body temperature 2021-11-16 19:02:00 36.83 Jelly [facility] Respiratory rate 2021-11-16 19:02:00 16 /min [facility] Body height 2021-11-16 19:02:00 [facility].6 cm [facility] 2021-11-16 19:02:00 66.497 kg [facility] BMI 2021-11-16 19:02:00 23.66 kg/m2 [facility] Systolic blood pressure 2021-10-24 14:55:00 112 mm[Hg] [facility] Diastolic blood pressure 2021-10-24 14:55:00 73 mm[Hg] [facility] Heart rate 2021-10-24 14:55:00 64 /min [facility] Body temperature 2021-10-24 14:55:00 36.78 Jelly [facility] Body height 2021-10-24 14:55:00 167.6 cm [facility] Body weight 2021-10-24 14:55:00 69.491 kg [facility] BMI 2021-10-24 14:55:00 24.73 kg/m2 [facility] BP Systolic 2023-11-26 15:25:00 Step hen F [facility] BP Diastolic 2023-11-26 15:25:00 Matt phen F [facility] Weight Measured 2023-11-26 15:25:00 153.60 pounds Florin F [facility] Height Measured 2023-11-26 15:25:00 66.00 inches Florin F [facility] Body Temperature 2023-11-26 15:25:00 Florin F Dayday Heart Rate 2023-11-26 15:25:00 Betsy en F Dayday Respiratory Rate 2023-11-26 15:25:00 Florin F Dayday BP Systolic 2023-11-26 15:10:00 117 mm[Hg] Step hen F Dayday BP Diastolic 2023-11-26 15:10:00 75 mm[Hg] Matt phen F Dayday Weight Measured 2023-11-26 15:10:00 153.60 pounds Florin F Dayday Height Measured 2023-11-26 15:10:00 66.00 inches Florin F Dayday Body Temperature 2023-11-26 15:10:00 97.30 degrees Florin F Dayday Heart Rate 2023-11-26 15:10:00 76.00 /min Betsy en F Dayday Respiratory Rate 2023-11-26 15:10:00 18.00 /min Florin F Dayday BP Systolic 2023-09-16 10:25:00 130 mm[Hg] Step hen F Dayday BP Diastolic 2023-09-16 10:25:00 76 mm[Hg] Matt phen F Dayday Weight Measured 2023-09-16 10:25:00 149.20 pounds Florin F Dayday Height Measured 2023-09-16 10:25:00 66.00 inches Florin F Dayday Body Temperature 2023-09-16 10:25:00 97.20 degrees Florin F Dayday Heart Rate 2023-09-16 10:25:00 100.00 /min Step hen F Dayday Respiratory Rate 2023-09-16 10:25:00 18.00 /min Florin F Dayday BP Systolic 2023-08-20 10:43:00 117 mm[Hg] Step hen F Dayday BP Diastolic 2023-08-20 10:43:00 74 mm[Hg] Matt phen F Dayday Weight Measured 2023-08-20 10:43:00 152.00 pounds Florin F Dayday Height Measured 2023-08-20 10:43:00 66.00 inches Florin F Dayday Body Temperature 2023-08-20 10:43:00 98.00 degrees Florin F Dayday Heart Rate 2023-08-20 10:43:00 87.00 /min Betsy en F Dayday Respiratory Rate 2023-08-20 10:43:00 18.00 /min Florin F Dayday Respiratory Rate 2023-08-08 08:18:00 18.00 /min Florin F Dayday BP Systolic 2023-08-08 08:18:00 106 mm[Hg] Step hen F Dayday BP Diastolic 2023-08-08 08:18:00 67 mm[Hg] Matt phen F Dayday Weight Measured 2023-08-08 08:18:00 151.80 pounds Florin F Dayday Height Measured 2023-08-08 08:18:00 66.00 inches Florin F Dayday Body Temperature 2023-08-08 08:18:00 98.20 degrees Florin F Dayday Heart Rate 2023-08-08 08:18:00 70.00 /min Betsy en F Dayday BP Systolic 2023-05-17 14:24:00 119 mm[Hg] Step hen F Dayday BP Diastolic 2023-05-17 14:24:00 72 mm[Hg] Matt phen F Dayday Weight Measured 2023-05-17 14:24:00 151.60 pounds Florin F Dayday Height Measured 2023-05-17 14:24:00 66.00 inches Florin F Dayday Body Temperature 2023-05-17 14:24:00 98.20 degrees Florin F Dayday Heart Rate 2023-05-17 14:24:00 74.00 /min Betsy en F Dayday Respiratory Rate 2023-05-17 14:24:00 18.00 /min Florin F Dayday BP Systolic 2021-01-09 09:41:00 Step hen F Dayday BP Diastolic 2021-01-09 09:41:00 Matt phen F Dayday Weight Measured 2021-01-09 09:41:00 152.00 pounds Florin F Dayday Height Measured 2021-01-09 09:41:00 66.00 inches Florin F Dayday Body Temperature 2021-01-09 09:41:00 Florin F Dayday Heart Rate 2021-01-09 09:41:00 Betsy en F Dayday Respiratory Rate 2021-01-09 09:41:00 Florin F Dayday BP Systolic 2020-10-17 14:30:00 120 mm[Hg] Step hen F Dayday BP Diastolic 2020-10-17 14:30:00 76 mm[Hg] Matt phen F Dayday Weight Measured 2020-10-17 14:30:00 153.40 pounds Florin F Dayday Height Measured 2020-10-17 14:30:00 66.00 inches Florin F Dayday Body Temperature 2020-10-17 14:30:00 98.30 degrees Florin F Dayday Heart Rate 2020-10-17 14:30:00 82.00 /min Betsy en F Dayday Respiratory Rate 2020-10-17 14:30:00 Florin F Dayday BP Systolic 2020-10-05 10:53:00 122 mm[Hg] Step hen F Dayday BP Diastolic 2020-10-05 10:53:00 83 mm[Hg] Matt phen F Dayday Weight Measured 2020-10-05 10:53:00 152.00 pounds Florin F Dayday Height Measured 2020-10-05 10:53:00 66.00 inches Florin F Dayday Body Temperature 2020-10-05 10:53:00 98.10 degrees Florin F Dayday Heart Rate 2020-10-05 10:53:00 81.00 /min Betsy en F Dayday Respiratory Rate 2020-10-05 10:53:00 Florin F Dayday BP Systolic 2020-08-18 15:10:00 Step hen F Dayday BP Diastolic 2020-08-18 15:10:00 Matt phen F Dayday Weight Measured 2020-08-18 15:10:00 151.00 pounds Florin F Dayday Height Measured 2020-08-18 15:10:00 66.50 inches Florin F Dayday Body Temperature 2020-08-18 15:10:00 Florin F Dayday Heart Rate 2020-08-18 15:10:00 Betsy en F Dayday Respiratory Rate 2020-08-18 15:10:00 Florin F Dayday BP Systolic 2020-07-18 15:51:00 106 mm[Hg] Step hen F Dayday BP Diastolic 2020-07-18 15:51:00 61 mm[Hg] Matt phen F Dayday Weight Measured 2020-07-18 15:51:00 151.40 pounds Florin F Dayday Height Measured 2020-07-18 15:51:00 66.50 inches Florin F Dayday Body Temperature 2020-07-18 15:51:00 99.10 degrees Florin F Dayday Heart Rate 2020-07-18 15:51:00 92.00 /min Betsy en F Dayday Respiratory Rate 2020-07-18 15:51:00 17.00 /min Florin F Dayday BP Systolic 2020-05-16 09:32:00 109 mm[Hg] Step hen F Dayday BP Diastolic 2020-05-16 09:32:00 71 mm[Hg] Matt phen F Dayday Weight Measured 2020-05-16 09:32:00 146.60 pounds Florin F Dayday Height Measured 2020-05-16 09:32:00 66.50 inches Florin F Dayday Body Temperature 2020-05-16 09:32:00 98.20 degrees Florin F Dayday Heart Rate 2020-05-16 09:32:00 82.00 /min Betsy en F Dayday Respiratory Rate 2020-05-16 09:32:00 17.00 /min Florin F Dayday BP Systolic 2020-02-29 15:10:00 121 mm[Hg] Step hen F Dayday BP Diastolic 2020-02-29 15:10:00 69 mm[Hg] Matt phen F Dayday Weight Measured 2020-02-29 15:10:00 147.20 pounds Florin F Dayday Height Measured 2020-02-29 15:10:00 66.50 inches Florin F Dayday Body Temperature 2020-02-29 15:10:00 98.80 degrees Florin F Dayday Heart Rate 2020-02-29 15:10:00 82.00 /min Betsy en F Dayday Respiratory Rate 2020-02-29 15:10:00 17.00 /min Florin F Dayday BP Systolic 2020-01-25 16:24:00 131 mm[Hg] Step hen F Dayday BP Diastolic 2020-01-25 16:24:00 78 mm[Hg] Matt phen F Dayday Weight Measured 2020-01-25 16:24:00 144.00 pounds Florin F Dayday Height Measured 2020-01-25 16:24:00 66.50 inches Florin Naylor Body Temperature 2020-01-25 16:24:00 99.10 degrees Florin F Dayday Heart Rate 2020-01-25 16:24:00 84.00 /min Betsy en F Dayday Respiratory Rate 2020-01-25 16:24:00 17.00 /min Florin Naylor Procedures Procedure Date / Time Performed Performing Clinician Source POCT TEST 2023-02-06 14:13:00 Grace Reyna [facility] FREE T4 2022-11-02 15:27:00 Filomena Guerra [facility] THYROID STIMULATING HORMONE 2022-11-02 15:27:00 Filomena Guerra [facility] CBC WITH DIFF 2022-11-02 15:27:00 Filomena Guerra [facility] POCT TEST 2022-11-02 15:00:00 Filomena Reese [facility] CONSENT FOR CONTRACEPTIVE PATCH 2022-08-01 05:01:00 Doctor Unassigned, Mulga [facility] POCT TEST 2022-08-01 00:00:00 Nita Clemente [facility] CBC WITH DIFF 2022-07-12 09:21:00 Nita Clemente [facility] MAGNESIUM 2022-07-11 06:49:00 Adum, Nita Nowak [facility] CENTRAL NEURAXIAL BLOCK 2022-07-10 22:08:00 Kathleen Dominguez [facility] SGOT (ASPARTATE AMINO TRANSFER) 2022-07-10 17:05:00 Adum, Nita Nowak [facility] CREATININE 2022-07-10 17:05:00 Adum, Nita Nowak [facility] ALANINE AMINO TRANSFERASE(SGPT 2022-07-10 17:05:00 Adum, Nita Nowak [facility] LACTATE DEHYDROGENASE 2022-07-10 17:05:00 Adum, Nita Nowak [facility] URIC ACID 2022-07-10 17:05:00 Adum, Nita Nowak [facility] CBC WITH DIFF 2022-07-10 17:05:00 Adum, Nita Nowak [facility] HEPATITIS B SURFACE ANTIGEN 2022-07-10 17:05:00 Adum, Nita Nowak [facility] HB ABO GROUPING 2022-07-10 17:05:00 Adum, Nita Casey [facility] ADC OR KIKA ONLY - RPR 2022-07-10 17:05:00 Adum, Keren Nowak [facility] PROTEIN CREAT RATIO URINE RANDOM 2022-07-10 17:05:00 Adum, Nita Nowak [facility] HIV 1/2 AG-AB WITH REFLEX 2022-07-10 17:05:00 Adum, Keren Nowak [facility] POCT URINALYSIS W/O SPECIFIC GRAVITY 2022-07-10 00:00:00 Adum, Nita Nowak [facility] POCT URINALYSIS W/O SPECIFIC GRAVITY 2022-07-03 00:00:00 Adum, Nita Nowak [facility] POCT URINALYSIS W/O SPECIFIC GRAVITY 2022-06-26 00:00:00 Adum, Nita Nowak [facility] PATIENT FINANCIAL POLICY 2022-06-20 18:54:08 Doctor Unassigned, Mulga [facility] POCT URINALYSIS W/O SPECIFIC GRAVITY 2022-06-20 00:00:00 Adum, Nita Nowak [facility] POCT URINALYSIS W/O SPECIFIC GRAVITY 2022-06-06 00:00:00 Adum, Niat Nowak [facility] POCT URINALYSIS W/O SPECIFIC GRAVITY 2022-05-23 00:00:00 Adum, Nita Nowak [facility] TDAP VACCINE, >11 YRS, IM 2022-05-09 19:38:36 Adum, Vi precious Nowak [facility] POCT URINALYSIS W/O SPECIFIC GRAVITY 2022-05-09 00:00:00 Adum, Nita Nowak [facility] 1 HR GLUCOSE TOLERANCE TEST 2022-05-03 16:00:00 Adum, Nita Nowak [facility] GLUCOSE FASTING 2022-05-03 15:04:00 Adum, [facility] W/O SPECIFIC GRAVITY 2022-04-25 00:00:00 Adum, Nita Nowak [facility] POCT URINALYSIS W/O SPECIFIC GRAVITY 2022-03-28 00:00:00 Adum, Nita Nowak [facility] FLU VACC ([id number]), 6 MO-64 YRS, .5ML, IM, QUAD (FLUCELVAX) 2022-02-28 17:46:40 Adum, Nita Nowak [facility] POCT URINALYSIS W/O SPECIFIC GRAVITY 2022-02-28 00:00:00 Adum, Nita Nowak [facility] ASSIGNMENT OF BENEFITS 2022-02-22 18:59:13 Docto r Unassigned, Mulga [facility] INSURANCE CORRESPONDENCE 2022-02-03 05:01:00 Doc tor Unassigned, Mulga [facility] POCT URINALYSIS W/O SPECIFIC GRAVITY 2022-01-30 00:00:00 Kavon Daniels [facility] SCANNED LAB RESULTS 2022-01-02 05:01:00 Doctor Nazanin griggs, Mulga [facility] POCT URINALYSIS W/O SPECIFIC GRAVITY 2021-12-29 00:00:00 Adum, Nita Nowak [facility] US OB TRANSVAGINAL 2021-12-01 15:30:29 Adum, Nita Nowak [facility] POCT URINALYSIS W/O SPECIFIC GRAVITY 2021-12-01 14:57:00 Adum, Nita Nowak [facility] DIGITAL PRODUCTION ARTIST CL[facility]IC ULTRASOUND 2021-12-01 05:01:00 Doc tor Unassigned, Mulga [facility] ASSIGNMENT OF BENEFITS 2021-11-20 14:59:08 Docto r Unassigned, Mulga [facility] POCT TEST 2021-11-16 19:21:00 Adum, Nita Nowak [facility] POCT URINALYSIS W/O SPECIFIC GRAVITY 2021-11-16 19:21:00 Adum, Nita Nowak [facility] POCT URINALYSIS W/O SPECIFIC GRAVITY 2021-10-24 00:00:00 Juany Malik [facility] Encounters Start Date/Time End Date/Time Encounter Type Admission Type Attending [facility] Care Department Encounter ID Source 2024-05-18 11:15:00 2024-05-18 11:15:00 Outpatient LABMadeline ALEMAN [id number] Maki Seybdiony 2024-05-18 10:15:00 2024-05-18 10:15:00 [id number]24-[facility]-26 00:00:00 2024-03-26 00:00:00 Outpatient LARY GUIDO [id number] Maki Seybdiony 2024-03-26 00:00:00 2024-03-26 00:00:00 Outpatient LARY GUIDO [id number] Maki Seybdiony 2024-03-23 10:15:00 2024-03-23 10:15:00 Outpatient LAB45 MAKI ALEMAN [id number] Maki Seybdiony 2024-03-23 09:30:00 2024-03-23 09:30:00 Outpatient LARY GUIDO [id number] Maki Seybdiony 2024-02-06 00:00:00 2024-02-06 00:00:00 Outpatient PARTH CHO [id number] Maki Tracy 2023-12-25 09:10:00 2023-12-25 09:10:00 Outpatient LAB90 MAKI ALEMAN [id number] Maki Tracy 2023-12-24 17:05:00 2023-12-24 17:05:00 Outpatient LAB90 MAKI ALEMAN [id number] Maki Tracy 2023-12-24 16:30:00 2023-12-24 16:30:00 Outpatient PARTH CHO [id number] Maki Dentondiony 2023-11-26 14:30:23 2023-11-26 14:30:23 Outpatient SFA SFA [id number] Florin Naylor 2023-11-26 00:00:00 2023-11-26 00:00:00 Outpatient Visit SFA [id number] Florin Naylor 2023-09-16 10:56:33 2023-09-16 10:56:33 Outpatient SFA SFA [id number] Florin Naylor 2023-09-16 00:00:00 2023-09-16 00:00:00 Outpatient Visit SFA [id number] Florin Naylor 2023-08-20 10:30:14 2023-08-20 10:30:14 Outpatient SFA SFA [id number] Florin Naylor 2023-08-20 00:00:00 2023-08-20 00:00:00 Outpatient Visit SFA [id number] Florin Naylor 2023-08-08 08:11:42 2023-08-08 08:11:42 Outpatient SFA SFA [id number] Florin Naylor 2023-08-08 00:00:00 2023-08-08 00:00:00 Outpatient Visit SFA [id number] Florin Naylor 2023-08-01 09:00:00 2023-08-01 09:00:00 Outpatient R [address]ACE [facility] [facility] [id number] [facility] 2023-07-12 00:00:00 2023-07-12 00:00:00 Telephone Anni Kingston [facility] 1.2.840.114 350.1.13.10 4.2.7.2.686 [id number] [facility] 2023-07-09 14:30:00 2023-07-09 15:11:29 Outpatient R [address]NI [facility] [facility] [id number] [facility] 2023-07-09 14:30:00 2023-07-09 15:11:29 Office Visit Anni Kingston [facility] 1.2.840.114 350.1.13.10 4.2.7.2.686 [id number] [facility] 2023-05-17 14:05:10 2023-05-17 14:05:10 Outpatient SFA NICHOLE [id number] Florin Naylor 2023-04-26 08:20:00 2023-04-26 08:20:00 Outpatient R FILOMENA [facility] [facility] [id number] [facility] 2023-02-14 16:15:00 2023-02-14 16:15:00 Outpatient R NITA [address] [facility] [id number] [facility] 2023-02-06 08:30:00 2023-02-06 09:33:23 Outpatient R [address] [facility] [id number] [facility] 2023-02-06 08:30:00 2023-02-06 09:33:23 Office Visit Grace Reyna [facility] 1.2.840.114 350.1.13.10 4.2.7.2.686 [id number] [facility] 2023-02-05 08:20:00 2023-02-05 08:20:00 Outpatient R FILOMENA [facility] [facility] [id number] [facility] 2022-11-23 09:30:00 2022-11-23 09:30:00 Outpatient R AXEL [address] [facility] [id number] [facility] 2022-11-22 12:30:00 2022-11-22 12:30:00 Outpatient R BRENDA [facility]Y[address] [facility] [id number] [facility] 2022-11-20 00:00:00 2022-11-20 00:00:00 Patient Secure Msg Doctor Unassigned, Mulga [facility] 1.2.840.114 350.1.13.10 4.2.7.2.686 [id number] [facility] 2022-11-02 10:15:00 2022-11-02 10:30:09 Pcb Designer Visit Lab, Ang - Db Filomena Guerra [facility] 1.2.840.114 350.1.13.10 4.2.7.2.686 [id number] [facility] 2022-11-02 09:20:00 2022-11-02 10:15:11 Outpatient R FILOMENA [facility] [facility] [id number] [facility] 2022-11-02 09:20:00 2022-11-02 10:15:11 Office Visit Filomena Guerra [facility] 1.2.840.114 350.1.13.10 4.2.7.2.686 [id number] [facility] 2022-10-30 09:00:00 2022-10-30 09:00:00 Outpatient R FILOMENA [facility] [id number] [facility] 2022-09-26 09:00:00 2022-09-26 09:36:29 Outpatient R FILOMENA [facility] [facility] [id number] [facility] 2022-09-26 09:00:00 2022-09-26 09:36:29 [facility] 1.840.114 350.1.13.10 4.2.7.2.686 [id number] [facility] 2022-09-12 10:40:00 2022-09-12 10:40:00 Outpatient R FILOMENA [facility] [id number] [facility] 2022-09-06 09:00:00 2022-09-06 09:00:00 Outpatient R [facility] [id number] [facility] 2022-08-29 11:15:00 2022-08-29 11:37:47 Out[address] R [address]YN [address] [facility] [id number] [facility] 2022-08-29 11:15:00 2022-08-29 11:37:47 Routine Visit valery [facility] 1.840.114 350.1.13.10 4.2.7.2.686 [id number] [facility] 2022-08-01 13:00:00 2022-08-01 13:31:58 Outpatient R BRYN [facility] [id number] [facility] 2022-08-01 13:00:00 2022-08-01 13:31:58 Routine Visit Bryn [facility] 1.84.114 350.1.13.10 4.2.7.2.686 [id number] [facility] 2022-08-01 00:00:00 2022-08-01 00:00:00 Orders Only Doctor Unassigned, Mulga [facility] 1.2.840.114 350.1.13.10 4.2.7.2.686 [id number] [facility] 2022-07-17 10:00:00 2022-07-17 10:15:00 Nurse Visit Nurse, Lkj [facility] AdNita branch [facility] 1.2.840.114 350.1.13.10 4.2.7.2.686 [id number] [facility] 2022-07-17 10:00:00 2022-07-17 10:00:00 Outpatient R NITA [address] [facility] [id number] [facility] 2022-07-10 10:29:00 2022-07-12 13:05:00 Inpatient P BRYN [facility] [id number] [facility] 2022-07-10 10:29:00 2022-07-12 13:05:00 Hospital Encounter Nita Clemente [facility] 1.2.840.114 350.1.13.10 4.2.7.2.686 [id number] [facility] 2022-07-11 20:03:07 2022-07-11 20:03:07 Anesthesia Event Ranjan Hahn [facility] 1.2.840.114 350.1.13.10 4.2.7.2.686 [id number] [facility] 2022-07-10 17:08:00 2022-07-11 07:00:00 Anesthesia Event Alberto Aniceto Hiro [facility] 1.2.840.114 350.1.13.10 4.2.7.2.686 [id number] [facility] 2022-07-10 09:15:00 2022-07-10 09:45:21 Outpatient R ADUM, [facility] [id number] [facility] 2022-07-10 09:15:00 2022-07-10 09:45:21 Routine Visit Adum, [facility] 1.20.114 350.1.13.10 4.2.7.2.686 [id number] [facility] 2022-07-03 10:30:00 2022-07-03 10:57:38 Outpatient R ADUM, [facility] [id number] [facility] 2022-07-03 10:30:00 2022-07-03 10:57:38 Routine Visit Advalery, [facility] 1.0.114 350.1.13.10 4.2.7.2.686 [id number] [facility] 2022-06-26 13:45:00 2022-06-26 15:02:50 Outpatient R ADUM, [facility] [id number] [facility] 2022-06-26 13:45:00 2022-06-26 15:02:50 Routine Visit Ad, [facility] BU[facility] 1.840.114 350.1.13.10 4.2.7.2.686 [id number] [facility] 2022-06-20 14:30:00 2022-06-20 15:09:11 Pcb Designer Visit Lab, Ang - [facility] 1.84.114 350.1.13.10 4.2.7.2.686 [id number] [facility] 2022-06-20 14:30:00 2022-06-20 14:30:00 Outpatient R ADUM, [facility] [id number] [facility] 2022-06-20 13:00:00 2022-06-20 13:52:39 Routine Visit Ad Nita [facility] 1.2.840.114 350.1.13.10 4.2.7.2.686 [id number] [facility] 2022-06-20 00:00:00 2022-06-20 00:00:00 Orders Only Doctor Unassigned, Mulga [facility] 1.2.840.114 350.1.13.10 4.2.7.2.686 [id number] [facility] 2022-06-06 13:00:00 2022-06-06 13:21:31 Outpatient R ADUM, [facility] [id number] [facility] 2022-06-06 13:00:00 2022-06-06 13:21:31 Routine Visit Ad, [facility] 1.2.840.114 350.1.13.10 4.2.7.2.686 [id number] [facility] 2022-05-23 10:00:00 2022-05-23 10:33:17 Outpatient R ADVALERY [facility] [id number] [facility] 2022-05-23 10:00:00 2022-05-23 10:33:17 Routine Visit Ad [facility] 1.2.840.114 350.1.13.10 4.2.7.2.686 [id number] [facility] 2022-05-09 13:15:00 2022-05-09 13:37:31 Outpatient R ADUM, [facility] [id number] [facility] 2022-05-09 13:15:00 2022-05-09 13:37:31 Routine Visit Ad, [facility] 1.2.840.114 350.1.13.10 4.2.7.2.686 [id number] [facility] 2022-05-03 09:00:00 2022-05-03 10:11:55 Pcb Designer Visit 2, Adc Lab AdumNita [facility] 1.2.840.114 350.1.13.10 4.2.7.2.686 [id number] [facility] 2022-05-03 09:00:00 2022-05-03 09:00:00 Out[address] R [address] [facility] [id number] [facility] 2022-04-30 00:00:00 2022-04-30 00:00:00 Case Management Adum, Ntia [facility] 1.2.840.114 350.1.13.10 4.2.7.2.686 [id number] [facility] 2022-04-26 09:30:00 2022-04-26 09:45:00 Pcb Designer Visit 2, Adc Lab Adum, Nita [facility] 1.2.840.114 350.1.13.10 4.2.7.2.686 [id number] [facility] 2022-04-26 09:30:00 2022-04-26 09:30:00 Outpatient R ADUM, NITA [facility] [id number] [facility] 2022-04-25 10:45:00 2022-04-25 10:45:00 Routine Visit Advalrey Nita [facility] 1.2.840.114 350.1.13.10 4.2.7.2.686 [id number] [facility] 2022-04-25 10:45:00 2022-04-25 10:42:11 Outpatient R ADVALERY NITA [facility] [id number] [facility] 2022-04-03 10:15:00 2022-04-03 10:15:00 Outpatient R JOSÉ POLO [facility] [id number] [facility] 2022-03-28 10:30:00 2022-03-28 11:03:46 Outpatient R BRYN [facility] [id number] [facility] 2022-03-28 10:30:00 2022-03-28 11:03:46 Routine Visit valery [facility] 1.114 350.1.13.10 4.2.7.2.686 [id number] [facility] 2022-02-28 10:30:00 2022-02-28 11:42:35 Outpatient R BRYN [facility] [id number] [facility] 2022-02-28 10:30:00 2022-02-28 11:42:35 Routine Visit [facility] 1.114 350.1.13.10 4.2.7.2.686 [id number] [facility] 2022-02-22 13:00:00 2022-02-22 14:00:00 Pcb Designer [facility] DIGITAL [employer]ODUCTION ARTIST [facility] 1..114 350.1.13.10 4.2.7.2.686 [id number] [facility] 2022-02-22 13:00:00 2022-02-22 13:00:[address] [facility] [id number] [facility] 2022-02-22 00:00:00 2022-02-22 00:00:00 Orders Only Doctor Unassigned, Mulga [facility] 1.2.840.114 350.1.13.10 4.2.7.2.686 [id number] [facility] 2022-02-07 00:00:00 2022-02-07 00:00:00 Telephone [facility]win [facility] 1.2.840.114 350.1.13.10 4.2.7.2.686 [id number] [facility] 2022-02-03 00:00:00 2022-02-03 00:00:00 Orders Only Doctor Unassigned, Mulga [facility] 1.2.840.114 350.1.13.10 4.2.7.2.686 [id number] [facility] 2022-02-01 00:00:00 2022-02-01 00:00:00 Telephone [facility] 1.2.840.114 350.1.13.10 4.2.7.2.686 [id number] [facility] 2022-01-30 09:30:00 2022-01-30 10:14:06 Routine Visit Kavon Daniels Vivian L [facility] 1.2.840.114 350.1.13.10 4.2.7.2.686 [id number] 134 [id number] [facility] 2022-01-30 09:30:00 2022-01-30 10:14:06 Outpatient R KAVON DANIELS [facility]ERYAL [facility] [id number] [facility] 2022-01-16 10:15:00 2022-01-16 10:45:00 [facility] 1.2.840.114 350.1.13.10 4.2.7.2.686 [id number] [facility] 2022-01-16 10:15:00 2022-01-16 10:15:00 Outpatient R VERONICA FRANCO [facility] [id number] [facility] 2022-01-16 00:00:00 2022-01-16 00:00:00 Telephone Lozano-Edwin [facility] 1..114 350.1.13.10 4.2.7.2.686 [id number] [id number] [facility] 2022-01-12 00:00:00 2022-01-12 00:00:00 Telephone Advalery Nita [facility] 1..114 350.1.13.10 4.2.7.2.686 [id number] [facility] 2022-01-02 10:30:00 2022-01-02 10:44:55 Outpatient R BRYN [facility] [id number] [facility] 2022-01-02 10:30:00 2022-01-02 10:44:55 Pcb Designer Visit 2, [facility] 1..114 350.1.13.10 4.2.7.2.686 [id number] [facility] 2022-01-02 00:00:00 2022-01-02 00:00:00 Orders Only Doctor Unassigned, Mulga [facility] 1..114 350.1.13.10 4.2.7.2.686 [id number] [id number] [facility] 2021-12-31 00:00:00 2021-12-31 00:00:00 [facility] 1..114 350.1.13.10 4.2.7.2.686 [id number] [facility] 2021-12-29 10:45:00 2021-12-29 11:44:34 Outpatient R ADUM, NITA [facility] [id number] [facility] 2021-12-29 10:45:00 2021-12-29 11:44:34 Routine Visit Adum, [facility] 1.2.840.114 350.1.13.10 4.2.7.2.686 [id number] 134 [id number] [facility] 2021-12-01 11:45:00 2021-12-01 12:00:00 Pcb Designer Visit 1, Adc Lab Adum, [facility] 1.2840.114 350.1.13.10 4.2.7.2.686 [id number] [facility] 2021-12-01 11:45:00 2021-12-01 11:45:00 Outpatient R ADUM, [facility] [id number] [facility] 2021-12-01 09:30:00 2021-12-01 10:31:59 Routine Visit Adum, [facility] 1.2840.114 350.1.13.10 4.2.7.2.686 [id number] [facility] 2021-12-01 00:00:00 2021-12-01 00:00:00 Orders Only Doctor Unassigned, Mulga [facility] 1.2840.114 350.1.13.10 4.2.7.2.686 [id number] [id number] [facility] 2021-11-20 09:30:00 2021-11-20 09:45:00 Pcb Designer Visit 2, Adc Lab Adum, [facility] 1.2840.114 350.1.13.10 4.2.7.2.686 [id number] [facility] 2021-11-20 09:30:00 2021-11-20 09:30:[address] R BRYN [address] [facility] [id number] [facility] 2021-11-20 00:00:00 2021-11-20 00:00:00 Orders Only Doctor Unassigned, Mulga [facility] 1.2840.114 350.1.13.10 4.2.7.2.686 [id number] [facility] 2021-11-20 00:00:00 2021-11-20 00:00:00 Telephone Jaja Hilliard [facility] 1.2.840.114 350.1.13.10 4.2.7.2.686 [id number] [facility] 2021-11-18 09:00:00 2021-11-18 09:15:00 Pcb Designer Visit Pob, Adc Lab [facility] 1.2.840.114 350.1.13.10 4.2.7.2.686 [id number] [facility] 2021-11-18 09:00:00 2021-11-18 09:00:[address] [facility] [id number] [facility] 2021-11-16 15:30:00 2021-11-16 15:45:00 Pcb Designer Visit 2, Adc Lab Advalery [facility] BU[facility]ING 1.2.840.114 350.1.13.10 4.2.7.2.686 [id number] [facility] 2021-11-16 13:45:00 2021-11-16 15:06:21 Outpatient R BRYN [facility] [id number] [facility] 2021-11-16 13:45:00 2021-11-16 15:06:21 Initial Visit Nita Clemente [facility] BUILD[facility] 1.2.840.114 350.1.13.10 4.2.7.2.686 [id number] [facility] 2021-10-25 00:00:00 2021-10-25 00:00:00 Case Management [facility]any [facility] 1.2840.114 350.1.13.10 4.2.7.2.686 [id number] [facility] 2021-10-24 09:30:00 2021-10-24 10:44:[address] [facility] [id number] [facility] 2021-10-24 09:30:00 2021-10-24 10:44:04 Office Visit Juany MalikNita [facility] 1.2.840.114 350.1.13.10 4.2.7.2.686 [id number] [facility] 2021-10-10 10:15:00 2021-10-10 10:45:00 [facility] 1.2.840.114 350.1.13.10 4.2.7.2.686 [id number] [facility] 2021-10-10 10:15:00 2021-10-10 10:15:00 Outpatient R JOSÉ POLO [facility] [id number] [facility] 2021-08-21 08:45:00 2021-08-21 08:45:00 Outpatient R JOSÉ POLO [facility] [id number] [facility] 2021-08-03 00:00:00 2021-08-03 00:00:00 [facility] 1.840.114 350.1.13.10 4.2.7.2.686 [id number] [facility] 2021-08-01 09:30:00 2021-08-01 10:08:05 Office Visit Bryn, Nita Nowak [facility] ESS[facility] 1.0.114 350.1.13.10 4.2.7.2.686 [id number] [facility] 2021-08-01 09:30:00 2021-08-01 10:08:05 Outpatient R BRYN [facility] [id number] [facility] 2021-08-01 09:30:00 2021-08-01 09:30:00 Outpatient R BRYN [facility] [id number] [facility] 2021-08-01 09:30:00 2021-08-01 09:30:00 Outpatient R ADUM [facility] [id number] [facility] 2021-08-01 09:30:00 2021-08-01 09:30:00 Outpatient R ADUM [facility] [id number] [facility] 2021-08-01 00:00:00 2021-08-01 00:00:00 Orders Only Doctor Unassigned, Mulga [facility] 1.840.114 350.1.13.10 4.2.7.2.686 [id number] [facility] 2021-07-31 09:15:00 2021-07-31 09:30:00 Pcb Designer Visit Vls-Lab BlakeEdwin franco [facility] 1.840.114 350.1.13.10 4.2.7.2.686 [id number] [facility] 2021-07-31 09:15:00 2021-07-31 09:15:00 Outpatient R JOSÉ POLO [facility] [id number] [facility] 2021-07-17 09:30:00 2021-07-17 23:59:00 [facility] 1.2840.114 350.1.13.10 4.2.7.2.686 [id number] [facility] 2021-07-17 10:45:00 2021-07-17 11:00:00 Pcb Designer Visit Vls-Lab Veronica franco [facility] 1.840.114 350.1.13.10 4.2.7.2.686 [id number] [facility] 2021-07-17 10:45:00 2021-07-17 10:45:00 [facility] [id number] 2021-07-17 08:15:00 2021-07-17 08:45:00 [facility] 1..840.114 350.1.13.10 4.2.7.2.686 [id number] [facility] 2021-07-17 08:15:00 2021-07-17 08:15:00 [facility] [id number] 2021-06-21 14:30:00 2021-06-21 14:30:00 [facility] [id number] [facility] 2021-05-23 00:00:00 2021-05-23 00:00:00 Telephone [facility] 1..840.114 350.1.13.10 4.2.7.2.686 [id number] [facility] 2021-05-19 00:00:00 2021-05-19 00:00:00 Telephone Richelle Boland [facility] 1.2.840.114 350.1.13.10 4.2.7.2.686 [id number] [facility] 2021-05-19 00:00:00 2021-05-19 00:00:00 Telephone AdumNita [facility] 1.2840.114 350.1.13.10 4.2.7.2.686 [id number] [facility] 2021-05-17 10:15:00 2021-05-17 10:15:00 Outpatient R RICHELLE BOLAND [facility] [id number] [facility] 2021-05-15 08:45:33 2021-05-15 23:59:00 Hospital Encounter Richelle Boland [facility] 1.2840.114 350.1.13.10 4.2.7.2.686 [id number] [facility] 2021-05-15 08:45:06 2021-05-15 08:44:00 Outpatient R RICHELLE B[address] [facility] [id number] [facility] 2021-05-15 08:30:00 2021-05-15 08:44:00 [facility] 1.2.840.114 350.1.13.10 4.2.7.2.686 [id number] [facility] 2021-04-28 11:45:00 2021-04-28 11:45:00 Pcb Designer Visit 2, Adc Lab AdumNita [facility] BUILDING 1.2.840.114 350.1.13.10 4.2.7.2.686 [id number] [facility] 2021-04-28 10:30:00 2021-04-28 11:06:14 Outpatient R NITA [address]E [facility] [id number] [facility] 2021-04-28 10:30:00 2021-04-28 11:06:14 Office Visit Nita Clemente [facility] 1.2840.114 350.1.13.10 4.2.7.2.686 [id number] [facility] 2021-04-27 00:00:00 2021-04-27 00:00:00 Telephone Nita Clemente [facility] 1.2.114 350.1.13.10 4.2.7.2.686 [id number] [facility] 2021-03-01 00:00:00 2021-03-01 00:00:00 Outpatient R AN RICHELLE [facility] [id number] [facility] 2021-02-09 00:00:00 2021-02-09 00:00:00 Telephone Richelle Boland [facility] 1.2.114 350.1.13.10 4.2.7.2.686 [id number] [facility] 2021-02-09 00:00:00 2021-02-09 00:00:00 Telephone Alexandrea Ochoaela Kaylie [facility] 1.2.114 350.1.13.10 4.2.7.2.686 [id number] [facility] 2021-02-07 13:32:02 2021-02-07 14:15:57 Office Visit Richelle Boland [facility] 1.2840.114 350.1.13.10 4.2.7.2.686 [id number] [facility] 2021-02-07 13:45:00 2021-02-07 13:45:00 Outpatient R RICHELLE BOLAND [facility] [id number] [facility] 2021-02-07 00:00:00 2021-02-07 00:00:00 Letter (Out) [facility] 1.2.840.114 350.1.13.10 4.2.7.2.686 [id number] [facility] 2021-02-06 11:57:19 2021-02-06 23:59:00 Outpatient R RICHELLE BOL[address] [facility] [id number] [facility] 2021-02-06 11:30:00 2021-02-06 23:59:00 Hospital Encounter Richelle Boland [facility] 1.2.840.114 350.1.13.10 4.2.7.2.686 [id number] [facility] 2021-02-06 00:00:00 2021-02-06 00:00:00 Telephone AnthonyNita branch [facility] BUILDING 1.2.840.114 350.1.13.10 4.2.7.2.686 [id number] [facility] 2021-02-02 00:00:00 2021-02-02 00:00:00 Outpatient R RICHELLE BOLAND [facility] [id number] [facility] 2021-01-31 08:02:36 2021-01-31 09:09:16 Office Visit AnthonyNita branch [facility] 1.2.840.114 350.1.13.10 4.2.7.2.686 [id number] [facility] 2021-01-31 08:00:00 2021-01-31 08:00:00 Outpatient R NITA [address]E [facility] [id number] [facility] 2021-01-31 00:00:00 2021-01-31 00:00:00 Letter (Out) Nita Clemente [facility] 1.2.840.114 350.1.13.10 4.2.7.2.686 [id number] [facility] 2021-01-25 00:00:00 2021-01-25 00:00:00 Case Management Nita Clemente [facility] 1.2.840.114 350.1.13.10 4.2.7.2.686 [id number] [facility] 2021-01-24 14:15:00 2021-01-24 15:33:19 Outpatient R NITA [address] [facility] [id number] [facility] 2021-01-24 13:59:07 2021-01-24 15:33:19 Office Visit Nita Clemente [facility] 1.2.840.114 350.1.13.10 4.2.7.2.686 [id number] [facility] 2021-01-24 12:49:23 2021-01-24 13:52:20 Office Visit Boland, Richelle [facility] 1.2.840.114 350.1.13.10 4.2.7.2.686 [id number] [facility] 2021-01-24 13:00:00 2021-01-24 13:00:00 Outpatient R RICHELLE BOL[address] [facility] [id number] [facility] 2021-01-24 00:00:00 2021-01-24 00:00:00 Orders Only Doctor Unassigned, Mulga [facility] 1.2.840.114 350.1.13.10 4.2.7.2.686 [id number] [facility] 2021-01-24 00:00:00 2021-01-24 00:00:00 Letter (Out) [facility] 1..840.114 350.1.13.10 4.2.7.2.686 [id number] [facility] 2021-01-10 10:34:00 2021-01-10 15:30:00 Emergency Savana Christian S [facility] 1..840.114 350.1.13.10 4.2.7.2.686 [id number] [facility] 2021-01-10 10:24:00 2021-01-10 10:24:00 Emergency X [facility] ERT [id number] [facility] 2021-01-10 00:00:00 2021-01-10 00:00:00 Orders Only Doctor Unassigned, Mulga [facility] 1..840.114 350.1.13.10 4.2.7.2.686 [id number] [facility] 2020-01-12 08:52:00 2020-01-12 08:52:00 Emergency X [facility] ERT [id number] [facility] Results Test Description Test Time Test Comments Results Result Co mments Source Florin Delgadillo ShawneeAMYDIA, NAAT, [id number] 14:55:01* Test Item Value Reference Range Interpretation Comme nts CHLAMYDIA, NAAT, URINE (test code = 69875) NEGATIVE NEGATIVE Testing is perfo rmed with Rocket[employer]AS 6800/8800 systems usingreal-time polymerase chain reaction (PCR) method. A negative result does not exclude low level infection, specimensampling error, or collection error. GONORRHEA, NAAT, [id number] 14:55:01* Test Item Value Reference Range Interpretation Comme nts GONORRHEA, NAAT, URINE (test code = 35338) NEGATIVE NEGATIVE Testing is perfo rmed with [place] ALEX 6800/8800 systems usingreal-time polymerase chain reaction (PCR) method. A negative result does not exclude low level infection, specimensampling error, or collection error. UNLESS OTHERWISE INDICATED, ALL TESTING PERFORMED AT [facility] [address] [place] [address] SALES AND MARKETING INTERN: VERÓNICA BOCANEGRA M.D. IA NUMBER [id number] [facility] [place]. [id number] [facility] PATH[facility] DNA [id number] 13:02:08* Test Item Value Reference Range Interpretation Comme nts RACHELLE SPECIES (test code = ) NEGATIVE NEGATIVE G. VAGINALIS (test code = 66471) NEGATIVE NEGATIVE T. VAGINALIS (test code = 03171) POSITIVE NEGATIVE A Note: The [employer] VPIII Microbial Identification Testis a DNA probe test intended for use in the detectionand identification of Rachelle species, Gardnerellavaginalis and Trichomonas vaginalis nucleic acid. VAGINAL PATHOGENS DNA [id number] 00:00:00* Test Item Value Reference Range Interpretation Comme nts RACHELLE SPECIES (test code = ) NEGATIVE G. VAGINALIS (test code = 13924) NEGATIVE T. VAGINALIS (test code = 77369) POSITIVE Florin F AustinCHLAMYDIA, AMPLIFIED, [id number] 00:00:00* Test Item Value Reference Range Interpretation Comme nts CHLAMYDIA, NAAT, URINE (test code = 11220) NEGATIVE Florin F AustinGC, AMPLIFIED, [id number] 00:00:00* Test Item Value Reference Range Interpretation Comme nts GONORRHEA, NAAT, URINE (test code = 22088) NEGATIVE Florin F AustinVAGINAL PATHOGENS DNA [id number] 00:00:00* Test Item Value Reference Range Interpretation Comme nts RACHELLE SPECIES (test code = 56748) NEGATIVE G. VAGINALIS (test code = 95577) NEGATIVE T. VAGINALIS (test code = 10513) POSITIVE Florin F AustinCHLAMYDIA, AMPLIFIED, [id number] 00:00:00* Test Item Value Reference Range Interpretation Comme nts CHLAMYDIA, NAAT, URINE (test code = 59637) NEGATIVE Florin F AustinGC, AMPLIFIED, [id number] 00:00:00* Test Item Value Reference Range Interpretation Comme nts GONORRHEA, NAAT, URINE (test code = 03006) NEGATIVE Florin Delgadillo AustinPOCT [id number] 14:18:00* Test Item Value Reference Range Interpretation Comme nts POCT PREG (test code = 1605) Negative On board controls acceptable with C Line (test code = 3574) Yes POCT PREG LOT # (test code = 3575) POCT PREG TEST DATE ( test code = 3576) Lab Interpretation (test cod e = 56305-7) [facility] [id number] 14:18:00* Test Item Value Reference Range Interpretation Comme nts POCT PREG (test code = 1605) Negative On board controls acceptable with C Line (test code = 3574) Yes POCT PREG LOT # (test code = 3575) POCT PREG TEST DATE ( test code = 3576) Lab Interpretation (test cod e = 79997-8) Normal [facility] [id number] 19:51:14 * Test Item Value Reference Range Interpretation Comme nts TSH (test code = 9862179201) 0.35 See_Comment L [Automated messa ge] The system which generated this result transmitted reference range: 0.45 - 4.70 mIU/L. The reference range was not used to interpret this result as normal/abnormal. Lab Interpretation (test code = 21460-4) Abnormal [facility] WITH [id number] 19:45:34* Test Item Value Reference Range Interpretation Comme nts WBC (test code = 6690-2) 6.43 See_Comment [Automated messa ge] The system which generated this result transmitted reference range: 4.30 - 11.10 10*3/?L. The reference range was not used to interpret this result as normal/abnormal. RBC (test code = 789-8) 4.96 See_Comment [Automated messa ge] The system which generated this result transmitted reference range: 3.93 - 5.25 10*6/?L. The reference range was not used to interpret this result as normal/abnormal. HGB (test code = 718-7) 10.4 g/dL 11.6-15.0 L HCT (test code = 4544-3) 35.7 % 35.7-45.2 MCV (test code = 787-2) 72.0 fL 80.6-95.5 L MCH (test code = 785-6) 21.0 pg 25.9-32.8 L MCHC (test code = 786-4) 29.1 g/dL 31.6-35.1 L RDW-SD (test code = 94178-9) 44.6 fL 39.0-49.9 RDW-CV (test code = 788-0) 17.6 % 12.0-15.5 H PLT (test code = 777-3) 284 See_Comment [Automated [employer] ge] The system which generated this result transmitted reference range: 166 - 358 10*3/?L. The reference range was not used to interpret this result as normal/abnormal. MPV (test code = 00847-9) 12.0 fL 9.5-12.9 IPF % (test code = 4799360819) 5.7 % 1.3-7.7 Platelet count measured by fluorescence method. NRBC/100 WBC (test code = 2613326941) 0.0 See_Comment [Automated [employer] ssage] The system which generated this result transmitted reference range: 0.0 - 10.0 /100 WBCs. The reference range was not used to interpret this result as normal/abnormal. NRBC x10^3 (test code = 7894431794) See_Comment [Automated [employer]] The system which generated this result transmitted reference range: 10*3/?L. The reference range was not used to interpret this result as normal/abnormal. GRAN MAT (NEUT) % (test code = 770-8) 53.0 % IMM GRAN % (test code = 6185482220) 0.20 % LYMPH % (test code = 736-9) 33.3 % MONO % (test code = 5905-5) 8.6 % EOS % (test code = 713-8) 4.0 % BASO % (test code = 706-2) 0.9 % GRAN MAT x10^3(ANC) (test code = 8036486075) 3.41 10*3/uL 1.88-7.09 IMM GRAN x10^3 (test code = 9780876931) 0.00-0.06 LYMPH x10^3 (test code = 731-0) 2.14 10*3/uL 1.32-3.29 MONO x10^3 (test code = 742-7) 0.55 10*3/uL 0.33-0.92 EOS x10^3 (test code = 711-2) 0.26 10*3/uL 0.03-0.39 BASO x10^3 (test code = 704-7) 0.06 10*3/uL 0.01-0.07 Lab Interpretation (test code = 90914-1) Abnormal [facility] [id number] 19:37:30* Test Item Value Reference Range Interpretation Comme nts FREE T4 (test code = 9816083590) 0.97 See_Comment [Automated messa ge] The system which generated this result transmitted reference range: 0.78 - 2.20 ng/dL:. The reference range was not used to interpret this result as normal/abnormal. Lab Interpretation (test code = 90316-4) Normal [facility] [id number] 15:04:00* Test Item Value Reference Range Interpretation Comme nts POCT PREG (test code = 1605) Negative On board controls acceptable with C Line (test code = 3574) Yes POCT PREG LOT # (test code = 3575) [id number] POCT PREG TEST DATE ( test code = 3576) 08/13/2023 [facility] [id number] 15:04:00* Test Item Value Reference Range Interpretation Comme nts POCT PREG (test code = 1605) Negative On board controls acceptable with C Line (test code = 3574) Yes POCT PREG LOT # (test code = 3575) [id number] POCT PREG TEST DATE ( test code = 3576) 08/13/2023 [facility] [id number] 18:21:00* Test Item Value Reference Range Interpretation Comme nts POCT PREG (test code = 1605) Negative On board controls acceptable with C Line (test code = 3574) Yes POCT PREG LOT # (test code = 3575) POCT PREG TEST DATE ( test code = 3576) [facility] URINALYSIS W/O SPECIFIC [id number] 14:22:00* Test Item Value Reference Range Interpretation Comme nts POCT PH U (test code = 3254) n/a 5-8 POCT U LEUK EST (test code = 3263) n/a Negative - N egative POCT U NIT (test code = 3262) n/a Negative - Negati ve POCT U PROT (test code = 3259) 30 Negative - Negat armaan POCT U GLU (test code = 3256) 100 Negative - Negati ve POCT U KETONE (test code = 3258) n/a Negative - Neg ative POCT U BLD (test code = 3257) n/a Negative - Negati ve [facility] URINALYSIS W/O SPECIFIC [id number] 16:17:00* Test Item Value Reference Range Interpretation Comme nts POCT PH U (test code = 3254) N/A 5-8 POCT U LEUK EST (test code = 3263) N/A Negative - Negative POCT U NIT (test code = 3262) N/A Negative - Negati ve POCT U PROT (test code = 3259) Negative Negative - Negat armaan POCT U GLU (test code = 3256) 1+ Negative - Negati ve POCT U KETONE (test code = 3258) N/A Negative - Neg ative POCT U BLD (test code = 3257) N/A Negative - Negati ve [facility] URINALYSIS W/O SPECIFIC [id number] 19:53:00* Test Item Value Reference Range Interpretation Comme nts POCT PH U (test code = 3254) n/a 5-8 POCT U LEUK EST (test code = 3263) n/a Negative - Negative POCT U NIT (test code = 3262) n/a Negative - Negati ve POCT U PROT (test code = 3259) Negative Negative - Negat armaan POCT U GLU (test code = 3256) 50 Negative - Negati ve POCT U KETONE (test code = 3258) n/a Negative - Neg ative POCT U BLD (test code = 3257) n/a Negative - Negati ve [facility] URINALYSIS W/O SPECIFIC [id number] 19:25:00* Test Item Value Reference Range Interpretation Comme nts POCT PH U (test code = 3254) n/a 5-8 POCT U LEUK EST (test code = 3263) n/a Negative - Negative POCT U NIT (test code = 3262) n/a Negative - Negati ve POCT U PROT (test code = 3259) negative Negative - Negat armaan POCT U GLU (test code = 3256) negative Negative - Negati ve POCT U KETONE (test code = 3258) n/a Negative - Neg ative POCT U BLD (test code = 3257) n/a Negative - Negati ve [facility] URINALYSIS W/O SPECIFIC [id number] 19:35:00* Test Item Value Reference Range Interpretation Comme nts POCT PH U (test code = 3254) n/a 5-8 POCT U LEUK EST (test code = 3263) n/a Negative - Negative POCT U NIT (test code = 3262) n/a Negative - Negati ve POCT U PROT (test code = 3259) negative Negative - Negat armaan POCT U GLU (test code = 3256) negative Negative - Negati ve POCT U KETONE (test code = 3258) n/a Negative - Neg ative POCT U BLD (test code = 3257) n/a Negative - Negati ve [facility] URINALYSIS W/O SPECIFIC [id number] 19:35:00* Test Item Value Reference Range Interpretation Comme nts POCT PH U (test code = 3254) n/a 5-8 POCT U LEUK EST (test code = 3263) n/a Negative - Negative POCT U NIT (test code = 3262) n/a Negative - Negati ve POCT U PROT (test code = 3259) negative Negative - Negat armaan POCT U GLU (test code = 3256) negative Negative - Negati ve POCT U KETONE (test code = 3258) n/a Negative - Neg ative POCT U BLD (test code = 3257) n/a Negative - Negati ve [facility] URINALYSIS W/O SPECIFIC [id number] 16:07:00* Test Item Value Reference Range Interpretation Comme nts POCT PH U (test code = 3254) n/a 5-8 POCT U LEUK EST (test code = 3263) n/a Negative - Negative POCT U NIT (test code = 3262) n/a Negative - Negati ve POCT U PROT (test code = 3259) negative Negative - Negat armaan POCT U GLU (test code = 3256) negative Negative - Negati ve POCT U KETONE (test code = 3258) n/a Negative - Neg ative POCT U BLD (test code = 3257) n/a Negative - Negati ve [facility] URINALYSIS W/O SPECIFIC [id number] 19:36:00* Test Item Value Reference Range Interpretation Comme nts POCT PH U (test code = 3254) n/a 5-8 POCT U LEUK EST (test code = 3263) n/a Negative - Negative POCT U NIT (test code = 3262) n/a Negative - Negati ve POCT U PROT (test code = 3259) negative Negative - Negat armaan POCT U GLU (test code = 3256) Negative - Negati ve POCT U KETONE (test code = 3258) n/a Negative - Neg ative POCT U BLD (test code = 3257) n/a Negative - Negati ve [facility] URINALYSIS W/O SPECIFIC [id number] 16:17:00* Test Item Value Reference Range Interpretation Comme nts POCT PH U (test code = 3254) n/a 5-8 POCT U LEUK EST (test code = 3263) n/a Negative - Negative POCT U NIT (test code = 3262) n/a Negative - Negati ve POCT U PROT (test code = 3259) negative Negative - Negat armaan POCT U GLU (test code = 3256) Negative - Negati ve POCT U KETONE (test code = 3258) n/a Negative - Neg ative POCT U BLD (test code = 3257) n/a Negative - Negati ve [facility] URINALYSIS W/O SPECIFIC [id number] 16:17:00* Test Item Value Reference Range Interpretation Comme nts POCT PH U (test code = 3254) n/a 5-8 POCT U LEUK EST (test code = 3263) n/a Negative - Negative POCT U NIT (test code = 3262) n/a Negative - Negati ve POCT U PROT (test code = 3259) negative Negative - Negat armaan POCT U GLU (test code = 3256) Negative - Negati ve POCT U KETONE (test code = 3258) n/a Negative - Neg ative POCT U BLD (test code = 3257) n/a Negative - Negati ve [facility] URINALYSIS W/O SPECIFIC [id number] 16:32:00* Test Item Value Reference Range Interpretation Comme nts POCT PH U (test code = 3254) n/a 5-8 POCT U LEUK EST (test code = 3263) n/a Negative - Negative POCT U NIT (test code = 3262) n/a Negative - Negati ve POCT U PROT (test code = 3259) negative Negative - Negat armaan POCT U GLU (test code = 3256) negative Negative - Negati ve POCT U KETONE (test code = 3258) n/a Negative - Neg ative POCT U BLD (test code = 3257) n/a Negative - Negati ve [facility] URINALYSIS W/O SPECIFIC [id number] 17:10:00* Test Item Value Reference Range Interpretation Comme nts POCT PH U (test code = 3254) N/A 5-8 POCT U LEUK EST (test code = 3263) N/A Negative - Negative POCT U NIT (test code = 3262) N/A Negative - Negati ve POCT U PROT (test code = 3259) Negative Negative - Negat armaan POCT U GLU (test code = 3256) 1+ Negative - Negati ve POCT U KETONE (test code = 3258) N/A Negative - Neg ative POCT U BLD (test code = 3257) N/A Negative - Negati ve [facility] URINALYSIS W/O SPECIFIC [id number] 15:02:00* Test Item Value Reference Range Interpretation Comme nts POCT PH U (test code = 3254) n/a 5-8 POCT U LEUK EST (test code = 3263) n/a Negative - Negative POCT U NIT (test code = 3262) n/a Negative - Negati ve POCT U PROT (test code = 3259) negative Negative - Negat armaan POCT U GLU (test code = 3256) Negative - Negati ve POCT U KETONE (test code = 3258) n/a Negative - Neg ative POCT U BLD (test code = 3257) n/a Negative - Negati ve [facility] URINALYSIS W/O SPECIFIC [id number] 17:02:00* Test Item Value Reference Range Interpretation Comme nts POCT PH U (test code = 3254) n/a 5-8 POCT U LEUK EST (test code = 3263) n/a Negative - N egative POCT U NIT (test code = 3262) n/a Negative - Negati ve POCT U PROT (test code = 3259) neg Negative - Negat armaan POCT U GLU (test code = 3256) neg Negative - Negati ve POCT U KETONE (test code = 3258) n/a Negative - Neg ative POCT U BLD (test code = 3257) n/a Negative - Negati ve [facility] URINALYSIS W/O SPECIFIC [id number] 14:58:00* Test Item Value Reference Range Interpretation Comme nts POCT PH U (test code = 3254) N/A 5-8 POCT U LEUK EST (test code = 3263) N/A Negative - Negative POCT U NIT (test code = 3262) N/A Negative - Negati ve POCT U PROT (test code = 3259) Negative Negative - Negat armaan POCT U GLU (test code = 3256) Negative Negative - Negati ve POCT U KETONE (test code = 3258) N/A Negative - Neg ative POCT U BLD (test code = 3257) N/A Negative - Negati ve [facility] [id number] 19:21:00* Test Item Value Reference Range Interpretation Comme nts POCT PREG (test code = 1605) Positive On board controls acceptable with C Line (test code = 3574) Yes POCT PREG LOT # (test code = 3575) POCT PREG TEST DATE ( test code = 3576) [facility] URINALYSIS W/O SPECIFIC [id number] 19:21:00* Test Item Value Reference Range Interpretation Comme nts POCT PH U (test code = 3254) n/a 5-8 POCT U LEUK EST (test code = 3263) n/a Negative - Negative POCT U NIT (test code = 3262) n/a Negative - Negati ve POCT U PROT (test code = 3259) negative Negative - Negat armaan POCT U GLU (test code = 3256) negative Negative - Negati ve POCT U KETONE (test code = 3258) n/a Negative - Neg ative POCT U BLD (test code = 3257) n/a Negative - Negati ve [facility] URINALYSIS W/O SPECIFIC [id number] 15:35:00* Test Item Value Reference Range Interpretation Comme nts POCT PH U (test code = 3254) 6 mg/dl 5-8 POCT U LEUK EST (test code = 3263) Negative Negative - Negative POCT U NIT (test code = 3262) negative Negative - Negati ve POCT U PROT (test code = 3259) Negative Negative - Negat armaan POCT U GLU (test code = 3256) Normal Negative - Negati ve POCT U KETONE (test code = 3258) negative Negative - Neg ative POCT U BLD (test code = 3257) Negative Negative - [facility] (HIGH RISK) 2020-12-02 00:00:00* Test Item Value Reference Range Interpretation Comme nts SARS-CoV-2 INTERPRETATION (t est code = 42622) POSITIVE SOURCE (test code = 23684) NOT SPECIFIED Florin F [id number] (COVID-19) by RT-PCR (HIGH RISK)2020-12-02 00:00:00* Test Item Value Reference Range Interpretation Comme nts SARS-CoV-2 INTERPRETATION (t est code = 69344) POSITIVE SOURCE (test code = 49775) NOT SPECIFIED Florin NaylorSARS-CoV-2 (COVID-19) by RT-PCR (HIGH RISK)2020-12-02 00:00:00* Test Item Value Reference Range Interpretation Comme nts SARS-CoV-2 INTERPRETATION (t est code = 66610) POSITIVE SOURCE (test code = 18786) NOT SPECIFIED Florin NaylorSARS-CoV-2 (COVID-19) by RT-PCR (HIGH RISK)2020-12-02 00:00:00* Test Item Value Reference Range Interpretation Comme nts SARS-CoV-2 INTERPRETATION (t est code = 28627) POSITIVE SOURCE (test code = 27638) NOT SPECIFIED Florin [id number] 00:00:00* Test Item Value Reference Range Interpretation Comme nts TSH (test code = 3016-3) 1.07 mIU/L Florin Delgadillo DaydayC-REACTIVE [id number] 00:00:00* Test Item Value Reference Range Interpretation Comme nts C-REACTIVE PROTEIN (test cod e = 1987-5) 0.5 mg/L Florin Delgadillo AustinSED RATE BY MODIFIED [id number] 00:00:00* Test Item Value Reference Range Interpretation Comme nts SED RATE BY MODIFIED WESTERG SY (test code = 4537-7) TNP mm/h Florin NaylorVITAMIN D,25-OH,TOTAL,[id number] 00:00:00* Test Item Value Reference Range Interpretation Comme nts VITAMIN D,25-OH,TOTAL,IA (te st code = 1989-3) 8 ng/mL Florin NaylorCBC (INCLUDES DIFF/PLT)2020-10-07 00:00:00* Test Item Value Reference Range Interpretation Comme nts WHITE BLOOD CELL COUNT (test code = 6690-2) 7.5 Thousand/uL RED BLOOD CELL COUNT (test code = 789-8) 4.99 Million/uL HEMOGLOBIN (test code = 718-7) 14.4 g/dL HEMATOCRIT (test code = 4544-3) 44.4 % MCV (test code = 787-2) 89.0 fL MCH (test code = 785-6) 28.9 pg MCHC (test code = 786-4) 32.4 g/dL RDW (test code = 788-0) 11.7 % PLATELET COUNT (test code = 777-3) 290 Thousand/uL MPV (test code = 776-5) 11.0 fL ABSOLUTE NEUTROPHILS (test code = 751-8) 3975 cells/uL ABSOLUTE BAND NEUTROPHILS (test code = 88046-8) DNR cells/uL ABSOLUTE METAMYELOCYTES (john t code = 09600-8) DNR cells/uL ABSOLUTE MYELOCYTES (test code = 65550-1) DNR cells/uL ABSOLUTE PROMYELOCYTES (test code = 41375-7) DNR cells/uL ABSOLUTE LYMPHOCYTES (test code = 731-0) 2783 cells/uL ABSOLUTE MONOCYTES (test cod e = 742-7) 570 cells/uL ABSOLUTE EOSINOPHILS (test code = 711-2) 120 cells/uL ABSOLUTE BASOPHILS (test cod e = 704-7) 53 cells/uL ABSOLUTE BLASTS (test code = 07775-3) DNR cells/uL ABSOLUTE NUCLEATED RBC (test code = 40067-8) DNR cells/uL NEUTROPHILS (test code = 770-8) 53 % BAND NEUTROPHILS (test code = 764-1) DNR % METAMYELOCYTES (test code = 740-1) DNR % MYELOCYTES (test code = 749-2) DNR % PROMYELOCYTES (test code = 783-1) DNR % LYMPHOCYTES (test code = 736-9) 37.1 % REACTIVE LYMPHOCYTES (test code = 70917-2) DNR % MONOCYTES (test code = 5905-5) 7.6 % EOSINOPHILS (test code = 713-8) 1.6 % BASOPHILS (test code = 706-2) 0.7 % BLASTS (test code = 709-6) DNR % NUCLEATED RBC (test code = 59207-3) DNR /100WBC COMMENT(S) (test code = 8251-1) DNR Florin NaylorVITAMIN B12/FOLATE, SERUM [id number] 00:00:00* Test Item Value Reference Range Interpretation Comme nts VITAMIN B12 (test code = 2132-9) 466 pg/mL FOLATE, SERUM (test code = 2284-8) 11.2 ng/mL Florin [id number] 00:00:00* Test Item Value Reference Range Interpretation Comme nts TSH (test code = 3016-3) 1.07 mIU/L Florin NaylorC-REACTIVE [id number] 00:00:00* Test Item Value Reference Range Interpretation Comme nts C-REACTIVE PROTEIN (test cod e = 1987-) 0.5 mg/L Florin Delgadillo AustinSED RATE BY MODIFIED [id number] 00:00:00* Test Item Value Reference Range Interpretation Comme jared SED RATE BY MODIFIED WESTERG SY (test code = 4537-7) TNP mm/h Florin NaylorVITAMIN D,25-OH,TOTAL,[id number] 00:00:00* Test Item Value Reference Range Interpretation Comme jared VITAMIN D,25-OH,TOTAL,IA (te st code = 1988-3) 8 ng/mL Florin NaylorCBC (INCLUDES DIFF/PLT)2020-10-07 00:00:00* Test Item Value Reference Range Interpretation Comme nts WHITE BLOOD CELL COUNT (test code = 6690-2) 7.5 Thousand/uL RED BLOOD CELL COUNT (test code = 789-8) 4.99 Million/uL HEMOGLOBIN (test code = 718-7) 14.4 g/dL HEMATOCRIT (test code = 4544-3) 44.4 % MCV (test code = 787-2) 89.0 fL MCH (test code = 785-6) 28.9 pg MCHC (test code = 786-4) 32.4 g/dL RDW (test code = 788-0) 11.7 % PLATELET COUNT (test code = 777-3) 290 Thousand/uL MPV (test code = 776-5) 11.0 fL ABSOLUTE NEUTROPHILS (test code = 751-8) 3975 cells/uL ABSOLUTE BAND NEUTROPHILS (test code = 44335-9) DNR cells/uL ABSOLUTE METAMYELOCYTES (john t code = 27099-5) DNR cells/uL ABSOLUTE MYELOCYTES (test code = 83457-6) DNR cells/uL ABSOLUTE PROMYELOCYTES (test code = 41464-7) DNR cells/uL ABSOLUTE LYMPHOCYTES (test code = 731-0) 2783 cells/uL ABSOLUTE MONOCYTES (test cod e = 742-7) 570 cells/uL ABSOLUTE EOSINOPHILS (test code = 711-2) 120 cells/uL ABSOLUTE BASOPHILS (test cod e = 704-7) 53 cells/uL ABSOLUTE BLASTS (test code = 56990-4) DNR cells/uL ABSOLUTE NUCLEATED RBC (test code = 66156-4) DNR cells/uL NEUTROPHILS (test code = 770-8) 53 % BAND NEUTROPHILS (test code = 764-1) DNR % METAMYELOCYTES (test code = 740-1) DNR % MYELOCYTES (test code = 749-2) DNR % PROMYELOCYTES (test code = 783-1) DNR % LYMPHOCYTES (test code = 736-9) 37.1 % REACTIVE LYMPHOCYTES (test code = 72178-0) DNR % MONOCYTES (test code = 5905-5) 7.6 % EOSINOPHILS (test code = 713-8) 1.6 % BASOPHILS (test code = 706-2) 0.7 % BLASTS (test code = 709-6) DNR % NUCLEATED RBC (test code = 83388-8) DNR /100WBC COMMENT(S) (test code = 8251-1) DNR Florin NaylorVITAMIN B12/FOLATE, SERUM [id number] 00:00:00* Test Item Value Reference Range Interpretation Comme nts VITAMIN B12 (test code = 2132-9) 466 pg/mL FOLATE, SERUM (test code = 2284-8) 11.2 ng/mL Florin [id number] 00:00:00* Test Item Value Reference Range Interpretation Comme nts TSH (test code = 3016-3) 1.07 mIU/L Florin Delgadillo DaydayC-REACTIVE [id number] 00:00:00* Test Item Value Reference Range Interpretation Comme nts C-REACTIVE PROTEIN (test cod e = 1987-5) 0.5 mg/L Florin Delgadillo AustinSED RATE BY MODIFIED [id number] 00:00:00* Test Item Value Reference Range Interpretation Comme nts SED RATE BY MODIFIED WESTBRISEYDA SY (test code = 4537-7) TNP mm/h Florin Delgadillo DaydayVITAMIN D,25-OH,TOTAL,[id number] 00:00:00* Test Item Value Reference Range Interpretation Comme nts VITAMIN D,25-OH,TOTAL,IA (te st code = 1988-3) 8 ng/mL Florin NaylorCBC (INCLUDES DIFF/PLT)2020-10-07 00:00:00* Test Item Value Reference Range Interpretation Comme nts WHITE BLOOD CELL COUNT (test code = 6690-2) 7.5 Thousand/uL RED BLOOD CELL COUNT (test code = 789-8) 4.99 Million/uL HEMOGLOBIN (test code = 718-7) 14.4 g/dL HEMATOCRIT (test code = 4544-3) 44.4 % MCV (test code = 787-2) 89.0 fL MCH (test code = 785-6) 28.9 pg MCHC (test code = 786-4) 32.4 g/dL RDW (test code = 788-0) 11.7 % PLATELET COUNT (test code = 777-3) 290 Thousand/uL MPV (test code = 776-5) 11.0 fL ABSOLUTE NEUTROPHILS (test code = 751-8) 3975 cells/uL ABSOLUTE BAND NEUTROPHILS (test code = 05356-0) DNR cells/uL ABSOLUTE METAMYELOCYTES (john t code = 88316-6) DNR cells/uL ABSOLUTE MYELOCYTES (test code = 26954-6) DNR cells/uL ABSOLUTE PROMYELOCYTES (test code = 44505-4) DNR cells/uL ABSOLUTE LYMPHOCYTES (test code = 731-0) 2783 cells/uL ABSOLUTE MONOCYTES (test cod e = 742-7) 570 cells/uL ABSOLUTE EOSINOPHILS (test code = 711-2) 120 cells/uL ABSOLUTE BASOPHILS (test cod e = 704-7) 53 cells/uL ABSOLUTE BLASTS (test code = 59557-5) DNR cells/uL ABSOLUTE NUCLEATED RBC (test code = 69263-4) DNR cells/uL NEUTROPHILS (test code = 770-8) 53 % BAND NEUTROPHILS (test code = 764-1) DNR % METAMYELOCYTES (test code = 740-1) DNR % MYELOCYTES (test code = 749-2) DNR % PROMYELOCYTES (test code = 783-1) DNR % LYMPHOCYTES (test code = 736-9) 37.1 % REACTIVE LYMPHOCYTES (test code = 79452-4) DNR % MONOCYTES (test code = 5905-5) 7.6 % EOSINOPHILS (test code = 713-8) 1.6 % BASOPHILS (test code = 706-2) 0.7 % BLASTS (test code = 709-6) DNR % NUCLEATED RBC (test code = 88468-7) DNR /100WBC COMMENT(S) (test code = 8251-1) DNR Florin NaylorVITAMIN B12/FOLATE, SERUM [id number] 00:00:00* Test Item Value Reference Range Interpretation Comme nts VITAMIN B12 (test code = 2132-9) 466 pg/mL FOLATE, SERUM (test code = 2284-8) 11.2 ng/mL Florin [id number] 00:00:00* Test Item Value Reference Range Interpretation Comme nts TSH (test code = 3016-3) 1.07 mIU/L lForin NaylorC-REACTIVE [id number] 00:00:00* Test Item Value Reference Range Interpretation Comme nts C-REACTIVE PROTEIN (test cod e = 1987-5) 0.5 mg/L Florin Delgadillo DaydaySED RATE BY MODIFIED [id number] 00:00:00* Test Item Value Reference Range Interpretation Comme nts SED RATE BY MODIFIED KIERA SY (test code = 4537-7) TNP mm/h Florin NaylorVITAMIN D,25-OH,TOTAL,[id number] 00:00:00* Test Item Value Reference Range Interpretation Comme nts VITAMIN D,25-OH,TOTAL,IA (te st code = 1989-3) 8 ng/mL Florin NaylorCBC (INCLUDES DIFF/PLT)2020-10-07 00:00:00* Test Item Value Reference Range Interpretation Comme nts WHITE BLOOD CELL COUNT (test code = 6690-2) 7.5 Thousand/uL RED BLOOD CELL COUNT (test code = 789-8) 4.99 Million/uL HEMOGLOBIN (test code = 718-7) 14.4 g/dL HEMATOCRIT (test code = 4544-3) 44.4 % MCV (test code = 787-2) 89.0 fL MCH (test code = 785-6) 28.9 pg MCHC (test code = 786-4) 32.4 g/dL RDW (test code = 788-0) 11.7 % PLATELET COUNT (test code = 777-3) 290 Thousand/uL MPV (test code = 776-5) 11.0 fL ABSOLUTE NEUTROPHILS (test code = 751-8) 3975 cells/uL ABSOLUTE BAND NEUTROPHILS (test code = 72166-2) DNR cells/uL ABSOLUTE METAMYELOCYTES (john t code = 00633-2) DNR cells/uL ABSOLUTE MYELOCYTES (test code = 72704-8) DNR cells/uL ABSOLUTE PROMYELOCYTES (test code = 92531-4) DNR cells/uL ABSOLUTE LYMPHOCYTES (test code = 731-0) 2783 cells/uL ABSOLUTE MONOCYTES (test cod e = 742-7) 570 cells/uL ABSOLUTE EOSINOPHILS (test code = 711-2) 120 cells/uL ABSOLUTE BASOPHILS (test cod e = 704-7) 53 cells/uL ABSOLUTE BLASTS (test code = 36398-3) DNR cells/uL ABSOLUTE NUCLEATED RBC (test code = 50719-3) DNR cells/uL NEUTROPHILS (test code = 770-8) 53 % BAND NEUTROPHILS (test code = 764-1) DNR % METAMYELOCYTES (test code = 740-1) DNR % MYELOCYTES (test code = 749-2) DNR % PROMYELOCYTES (test code = 783-1) DNR % LYMPHOCYTES (test code = 736-9) 37.1 % REACTIVE LYMPHOCYTES (test code = 73959-6) DNR % MONOCYTES (test code = 5905-5) 7.6 % EOSINOPHILS (test code = 713-8) 1.6 % BASOPHILS (test code = 706-2) 0.7 % BLASTS (test code = 709-6) DNR % NUCLEATED RBC (test code = 13589-2) DNR /100WBC COMMENT(S) (test code = 8251-1) DNR Florin Leona DaydayVITAMIN B12/FOLATE, SERUM [id number] 00:00:00* Test Item Value Reference Range Interpretation Comme nts VITAMIN B12 (test code = 2132-9) 466 pg/mL FOLATE, SERUM (test code = 2284-8) 11.2 ng/mL Florin Delgadillo DaydayCOMPREHENSIVE METABOLIC [id number] 00:00:00* Test Item Value Reference Range Interpretation Comme nts GLUCOSE (test code = 2345-7) 85 mg/dL UREA NITROGEN (BUN) (test code = 3094-0) 12 mg/dL CREATININE (test code = 2160-0) 0.75 mg/dL eGFR NON-AFR. [place] (test code = 22347-7) 116 mL/min/1.73m2 eGFR (test code = 19702-9) 135 mL/min/1.73m2 BUN/CREATININE RATIO (test code = 3097-3) NOT APPLICABLE (calc) SODIUM (test code = 2951-2) 137 mmol/L POTASSIUM (test code = 2823-3) 3.9 mmol/L CHLORIDE (test code = 2075-0) 107 mmol/L CARBON DIOXIDE (test code = 2027-9) 22 mmol/L CALCIUM (test code = 65682-5) 9.5 mg/dL PROTEIN, TOTAL (test code = 2885-2) 6.7 g/dL ALBUMIN (test code = 1751-7) 4.4 g/dL GLOBULIN (test code = 39738-7) 2.3 g/dL(calc) ALBUMIN/GLOBULIN RATIO (test code = 1759-0) 1.9 (calc) BILIRUBIN, TOTAL (test code = 1974-2) 0.6 mg/dL ALKALINE PHOSPHATASE (test code = 6768-6) 78 U/L AST (test code = 1920-8) 12 U/L ALT (test code = 1742-6) 7 U/L [facility] (INCLUDES DIFF/PLT)2020-05-04 00:00:00* Test Item Value Reference Range Interpretation Comme nts WHITE BLOOD CELL COUNT (test code = 6690-2) 7.4 Thousand/uL RED BLOOD CELL COUNT (test code = 789-8) 4.38 Million/uL HEMOGLOBIN (test code = 718-7) 12.4 g/dL HEMATOCRIT (test code = 4544-3) 38.9 % MCV (test code = 787-2) 88.8 fL MCH (test code = 785-6) 28.3 pg MCHC (test code = 786-4) 31.9 g/dL RDW (test code = 788-0) 11.8 % PLATELET COUNT (test code = 777-3) 248 Thousand/uL MPV (test code = 776-5) 10.8 fL ABSOLUTE NEUTROPHILS (test code = 751-8) 4114 cells/uL ABSOLUTE BAND NEUTROPHILS (test code = 78055-1) DNR cells/uL ABSOLUTE METAMYELOCYTES (john t code = 42433-3) DNR cells/uL ABSOLUTE MYELOCYTES (test code = 37085-1) DNR cells/uL ABSOLUTE PROMYELOCYTES (test code = 47334-3) DNR cells/uL ABSOLUTE LYMPHOCYTES (test code = 731-0) 2664 cells/uL ABSOLUTE MONOCYTES (test cod e = 742-7) 511 cells/uL ABSOLUTE EOSINOPHILS (test code = 711-2) 59 cells/uL ABSOLUTE BASOPHILS (test cod e = 704-7) 52 cells/uL ABSOLUTE BLASTS (test code = 35173-5) DNR cells/uL ABSOLUTE NUCLEATED RBC (test code = 26423-9) DNR cells/uL NEUTROPHILS (test code = 770-8) 55.6 % BAND NEUTROPHILS (test code = 764-1) DNR % METAMYELOCYTES (test code = 740-1) DNR % MYELOCYTES (test code = 749-2) DNR % PROMYELOCYTES (test code = 783-1) DNR % LYMPHOCYTES (test code = 736-9) 36.0 % REACTIVE LYMPHOCYTES (test code = 27459-0) DNR % MONOCYTES (test code = 5905-5) 6.9 % EOSINOPHILS (test code = 713-8) 0.8 % BASOPHILS (test code = 706-2) 0.7 % BLASTS (test code = 709-6) DNR % NUCLEATED RBC (test code = 01316-5) DNR /100WBC COMMENT(S) (test code = 8251-1) DNR Florin NaylorLIPID [id number] 00:00:00* Test Item Value Reference Range Interpretation Comme nts CHOLESTEROL, TOTAL (test cod e = 2093-3) 93 mg/dL HDL CHOLESTEROL (test code = 2085-9) 46 mg/dL TRIGLYCERIDES (test code = 2571-8) 28 mg/dL LDL-CHOLESTEROL (test code = 66703-6) 39 mg/dL(calc) CHOL/HDLC RATIO (test code = 9830-1) 2.0 (calc) NON HDL CHOLESTEROL (test co de = 48478-8) 47 mg/dL(calc) Florin [id number] 00:00:00* Test Item Value Reference Range Interpretation Comme jared TSH (test code = 3016-3) 1.30 mIU/L Florin NaylorHEMOGLOBIN [id number] 00:00:00* Test Item Value Reference Range Interpretation Comme jared HEMOGLOBIN A1c (test code = 4548-4) 5.0 %oftotalHgb Florin NaylorCOMPREHENSIVE METABOLIC [id number] 00:00:00* Test Item Value Reference Range Interpretation Comme nts GLUCOSE (test code = 2345-7) 85 mg/dL UREA NITROGEN (BUN) (test code = 3094-0) 12 mg/dL CREATININE (test code = 2160-0) 0.75 mg/dL eGFR NON-AFR. [place] (test code = 39329-2) 116 mL/min/1.73m2 eGFR (test code = 87861-1) 135 mL/min/1.73m2 BUN/CREATININE RATIO (test code = 3097-3) NOT APPLICABLE (calc) SODIUM (test code = 2951-2) 137 mmol/L POTASSIUM (test code = 2823-3) 3.9 mmol/L CHLORIDE (test code = 2075-0) 107 mmol/L CARBON DIOXIDE (test code = 2027-9) 22 mmol/L CALCIUM (test code = 44964-6) 9.5 mg/dL PROTEIN, TOTAL (test code = 2885-2) 6.7 g/dL ALBUMIN (test code = 1751-7) 4.4 g/dL GLOBULIN (test code = 11866-7) 2.3 g/dL(calc) ALBUMIN/GLOBULIN RATIO (test code = 1759-0) 1.9 (calc) BILIRUBIN, TOTAL (test code = 1975-2) 0.6 mg/dL ALKALINE PHOSPHATASE (test code = 6768-6) 78 U/L AST (test code = 1920-8) 12 U/L ALT (test code = 1742-6) 7 U/L Florin NaylorCBC (INCLUDES DIFF/PLT)2020-05-04 00:00:00* Test Item Value Reference Range Interpretation Comme nts WHITE BLOOD CELL COUNT (test code = 6690-2) 7.4 Thousand/uL RED BLOOD CELL COUNT (test code = 789-8) 4.38 Million/uL HEMOGLOBIN (test code = 718-7) 12.4 g/dL HEMATOCRIT (test code = 4544-3) 38.9 % MCV (test code = 787-2) 88.8 fL MCH (test code = 785-6) 28.3 pg MCHC (test code = 786-4) 31.9 g/dL RDW (test code = 788-0) 11.8 % PLATELET COUNT (test code = 777-3) 248 Thousand/uL MPV (test code = 776-5) 10.8 fL ABSOLUTE NEUTROPHILS (test code = 751-8) 4114 cells/uL ABSOLUTE BAND NEUTROPHILS (test code = 51745-7) DNR cells/uL ABSOLUTE METAMYELOCYTES (john t code = 40126-2) DNR cells/uL ABSOLUTE MYELOCYTES (test code = 15736-0) DNR cells/uL ABSOLUTE PROMYELOCYTES (test code = 30737-9) DNR cells/uL ABSOLUTE LYMPHOCYTES (test code = 731-0) 2664 cells/uL ABSOLUTE MONOCYTES (test cod e = 742-7) 511 cells/uL ABSOLUTE EOSINOPHILS (test code = 711-2) 59 cells/uL ABSOLUTE BASOPHILS (test cod e = 704-7) 52 cells/uL ABSOLUTE BLASTS (test code = 52038-0) DNR cells/uL ABSOLUTE NUCLEATED RBC (test code = 48753-7) DNR cells/uL NEUTROPHILS (test code = 770-8) 55.6 % BAND NEUTROPHILS (test code = 764-1) DNR % METAMYELOCYTES (test code = 740-1) DNR % MYELOCYTES (test code = 749-2) DNR % PROMYELOCYTES (test code = 783-1) DNR % LYMPHOCYTES (test code = 736-9) 36.0 % REACTIVE LYMPHOCYTES (test code = 76689-5) DNR % MONOCYTES (test code = 5905-5) 6.9 % EOSINOPHILS (test code = 713-8) 0.8 % BASOPHILS (test code = 706-2) 0.7 % BLASTS (test code = 709-6) DNR % NUCLEATED RBC (test code = 55471-7) DNR /100WBC COMMENT(S) (test code = 8251-1) DNR Florin F AustinLIPID [id number] 00:00:00* Test Item Value Reference Range Interpretation Comme nts CHOLESTEROL, TOTAL (test cod e = 2093-3) 93 mg/dL HDL CHOLESTEROL (test code = 2085-9) 46 mg/dL TRIGLYCERIDES (test code = 2571-8) 28 mg/dL LDL-CHOLESTEROL (test code = 30297-6) 39 mg/dL(calc) CHOL/HDLC RATIO (test code = 9830-1) 2.0 (calc) NON HDL CHOLESTEROL (test co de = 23362-8) 47 mg/dL(calc) Florin [id number] 00:00:00* Test Item Value Reference Range Interpretation Comme nts TSH (test code = 3016-3) 1.30 mIU/L Florin NaylorHEMOGLOBIN [id number] 00:00:00* Test Item Value Reference Range Interpretation Comme nts HEMOGLOBIN A1c (test code = 4548-4) 5.0 %oftotalHgb Florin NaylorCOMPREHENSIVE METABOLIC [id number] 00:00:00* Test Item Value Reference Range Interpretation Comme nts GLUCOSE (test code = 2345-7) 85 mg/dL UREA NITROGEN (BUN) (test code = 3094-0) 12 mg/dL CREATININE (test code = 2160-0) 0.75 mg/dL eGFR NON-AFR. [place] (test code = 70081-9) 116 mL/min/1.73m2 eGFR (test code = 18039-6) 135 mL/min/1.73m2 BUN/CREATININE RATIO (test code = 3097-3) NOT APPLICABLE (calc) SODIUM (test code = 2951-2) 137 mmol/L POTASSIUM (test code = 2823-3) 3.9 mmol/L CHLORIDE (test code = 2075-0) 107 mmol/L CARBON DIOXIDE (test code = 2027-9) 22 mmol/L CALCIUM (test code = 00707-4) 9.5 mg/dL PROTEIN, TOTAL (test code = 2885-2) 6.7 g/dL ALBUMIN (test code = 1751-7) 4.4 g/dL GLOBULIN (test code = 93150-7) 2.3 g/dL(calc) ALBUMIN/GLOBULIN RATIO (test code = 1759-0) 1.9 (calc) BILIRUBIN, TOTAL (test code = 1974-2) 0.6 mg/dL ALKALINE PHOSPHATASE (test code = 6768-6) 78 U/L AST (test code = 1920-8) 12 U/L ALT (test code = 1742-6) 7 U/L Florin Delgadillo [facility] (INCLUDES DIFF/PLT)2020-05-04 00:00:00* Test Item Value Reference Range Interpretation Comme nts WHITE BLOOD CELL COUNT (test code = 6690-2) 7.4 Thousand/uL RED BLOOD CELL COUNT (test code = 789-8) 4.38 Million/uL HEMOGLOBIN (test code = 718-7) 12.4 g/dL HEMATOCRIT (test code = 4544-3) 38.9 % MCV (test code = 787-2) 88.8 fL MCH (test code = 785-6) 28.3 pg MCHC (test code = 786-4) 31.9 g/dL RDW (test code = 788-0) 11.8 % PLATELET COUNT (test code = 777-3) 248 Thousand/uL MPV (test code = 776-5) 10.8 fL ABSOLUTE NEUTROPHILS (test code = 751-8) 4114 cells/uL ABSOLUTE BAND NEUTROPHILS (test code = 54454-8) DNR cells/uL ABSOLUTE METAMYELOCYTES (john t code = 46915-9) DNR cells/uL ABSOLUTE MYELOCYTES (test code = 45828-1) DNR cells/uL ABSOLUTE PROMYELOCYTES (test code = 23707-7) DNR cells/uL ABSOLUTE LYMPHOCYTES (test code = 731-0) 2664 cells/uL ABSOLUTE MONOCYTES (test cod e = 742-7) 511 cells/uL ABSOLUTE EOSINOPHILS (test code = 711-2) 59 cells/uL ABSOLUTE BASOPHILS (test cod e = 704-7) 52 cells/uL ABSOLUTE BLASTS (test code = 15265-6) DNR cells/uL ABSOLUTE NUCLEATED RBC (test code = 93408-6) DNR cells/uL NEUTROPHILS (test code = 770-8) 55.6 % BAND NEUTROPHILS (test code = 764-1) DNR % METAMYELOCYTES (test code = 740-1) DNR % MYELOCYTES (test code = 749-2) DNR % PROMYELOCYTES (test code = 783-1) DNR % LYMPHOCYTES (test code = 736-9) 36.0 % REACTIVE LYMPHOCYTES (test code = 27570-9) DNR % MONOCYTES (test code = 5905-5) 6.9 % EOSINOPHILS (test code = 713-8) 0.8 % BASOPHILS (test code = 706-2) 0.7 % BLASTS (test code = 709-6) DNR % NUCLEATED RBC (test code = 45291-0) DNR /100WBC COMMENT(S) (test code = 8251-1) DNR Florin NaylorLIPID [id number] 00:00:00* Test Item Value Reference Range Interpretation Comme nts CHOLESTEROL, TOTAL (test cod e = 2093-3) 93 mg/dL HDL CHOLESTEROL (test code = 2085-9) 46 mg/dL TRIGLYCERIDES (test code = 2571-8) 28 mg/dL LDL-CHOLESTEROL (test code = 04248-2) 39 mg/dL(calc) CHOL/HDLC RATIO (test code = 9830-1) 2.0 (calc) NON HDL CHOLESTEROL (test co de = 57101-8) 47 mg/dL(calc) Florin [id number] 00:00:00* Test Item Value Reference Range Interpretation Comme nts TSH (test code = 3016-3) 1.30 mIU/L Florin NaylorHEMOGLOBIN [id number] 00:00:00* Test Item Value Reference Range Interpretation Comme nts HEMOGLOBIN A1c (test code = 4548-4) 5.0 %oftotalHgb Florin NaylorCOMPREHENSIVE METABOLIC [id number] 00:00:00* Test Item Value Reference Range Interpretation Comme nts GLUCOSE (test code = 2345-7) 85 mg/dL UREA NITROGEN (BUN) (test code = 3094-0) 12 mg/dL CREATININE (test code = 2160-0) 0.75 mg/dL eGFR NON-AFR. [place] (test code = 76928-9) 116 mL/min/1.73m2 eGFR (test code = 08616-0) 135 mL/min/1.73m2 BUN/CREATININE RATIO (test code = 3097-3) NOT APPLICABLE (calc) SODIUM (test code = 2951-2) 137 mmol/L POTASSIUM (test code = 2823-3) 3.9 mmol/L CHLORIDE (test code = 2075-0) 107 mmol/L CARBON DIOXIDE (test code = 2027-9) 22 mmol/L CALCIUM (test code = 32868-4) 9.5 mg/dL PROTEIN, TOTAL (test code = 2885-2) 6.7 g/dL ALBUMIN (test code = 1751-7) 4.4 g/dL GLOBULIN (test code = 23706-0) 2.3 g/dL(calc) ALBUMIN/GLOBULIN RATIO (test code = 1759-0) 1.9 (calc) BILIRUBIN, TOTAL (test code = 1975-2) 0.6 mg/dL ALKALINE PHOSPHATASE (test code = 6768-6) 78 U/L AST (test code = 1920-8) 12 U/L ALT (test code = 1742-6) 7 U/L Florin Delgadillo [facility] (INCLUDES DIFF/PLT)2020-05-04 00:00:00* Test Item Value Reference Range Interpretation Comme nts WHITE BLOOD CELL COUNT (test code = 6690-2) 7.4 Thousand/uL RED BLOOD CELL COUNT (test code = 789-8) 4.38 Million/uL HEMOGLOBIN (test code = 718-7) 12.4 g/dL HEMATOCRIT (test code = 4544-3) 38.9 % MCV (test code = 787-2) 88.8 fL MCH (test code = 785-6) 28.3 pg MCHC (test code = 786-4) 31.9 g/dL RDW (test code = 788-0) 11.8 % PLATELET COUNT (test code = 777-3) 248 Thousand/uL MPV (test code = 776-5) 10.8 fL ABSOLUTE NEUTROPHILS (test code = 751-8) 4114 cells/uL ABSOLUTE BAND NEUTROPHILS (test code = 63158-0) DNR cells/uL ABSOLUTE METAMYELOCYTES (john t code = 48449-5) DNR cells/uL ABSOLUTE MYELOCYTES (test code = 08077-7) DNR cells/uL ABSOLUTE PROMYELOCYTES (test code = 74248-0) DNR cells/uL ABSOLUTE LYMPHOCYTES (test code = 731-0) 2664 cells/uL ABSOLUTE MONOCYTES (test cod e = 742-7) 511 cells/uL ABSOLUTE EOSINOPHILS (test code = 711-2) 59 cells/uL ABSOLUTE BASOPHILS (test cod e = 704-7) 52 cells/uL ABSOLUTE BLASTS (test code = 21024-2) DNR cells/uL ABSOLUTE NUCLEATED RBC (test code = 45601-2) DNR cells/uL NEUTROPHILS (test code = 770-8) 55.6 % BAND NEUTROPHILS (test code = 764-1) DNR % METAMYELOCYTES (test code = 740-1) DNR % MYELOCYTES (test code = 749-2) DNR % PROMYELOCYTES (test code = 783-1) DNR % LYMPHOCYTES (test code = 736-9) 36.0 % REACTIVE LYMPHOCYTES (test code = 41194-0) DNR % MONOCYTES (test code = 5905-5) 6.9 % EOSINOPHILS (test code = 713-8) 0.8 % BASOPHILS (test code = 706-2) 0.7 % BLASTS (test code = 709-6) DNR % NUCLEATED RBC (test code = 14508-6) DNR /100WBC COMMENT(S) (test code = 8251-1) DNR Florin NaylorLIPID [id number] 00:00:00* Test Item Value Reference Range Interpretation Comme nts CHOLESTEROL, TOTAL (test cod e = 2093-3) 93 mg/dL HDL CHOLESTEROL (test code = 2085-9) 46 mg/dL TRIGLYCERIDES (test code = 2571-8) 28 mg/dL LDL-CHOLESTEROL (test code = 25599-1) 39 mg/dL(calc) CHOL/HDLC RATIO (test code = 9830-1) 2.0 (calc) NON HDL CHOLESTEROL (test co de = 83924-2) 47 mg/dL(calc) Florin [id number] 00:00:00* Test Item Value Reference Range Interpretation Comme nts TSH (test code = 3016-3) 1.30 mIU/L Florin NaylorHEMOGLOBIN [id number] 00:00:00* Test Item Value Reference Range Interpretation Comme nts HEMOGLOBIN A1c (test code = 4548-4) 5.0 %oftotalHgb Florin NaylorGC AND CHLAMYDIA, AMPLIFIED, [id number] 00:00:00* Test Item Value Reference Range Interpretation Comme nts GONORRHEA, NAAT (test code = 63547) NEGATIVE CHLAMYDIA, NAAT (test code = 11317) POSITIVE Florin F AustinGC AND CHLAMYDIA, AMPLIFIED, [id number] 00:00:00* Test Item Value Reference Range Interpretation Comme nts GONORRHEA, NAAT (test code = 02764) NEGATIVE CHLAMYDIA, NAAT (test code = 86259) POSITIVE Florin F AustinGC AND CHLAMYDIA, AMPLIFIED, [id number] 00:00:00* Test Item Value Reference Range Interpretation Comme nts GONORRHEA, NAAT (test code = 66611) NEGATIVE CHLAMYDIA, NAAT (test code = 99528) POSITIVE Florin F AustinGC AND CHLAMYDIA, AMPLIFIED, [id number] 00:00:00* Test Item Value Reference Range Interpretation Comme nts GONORRHEA, NAAT (test code = 45096) NEGATIVE CHLAMYDIA, NAAT (test code = 66993) POSITIVE Florin F AustinTRICHOMONAS, URINE, [id number] 00:00:00* Test Item Value Reference Range Interpretation Comme nts TRICHOMONAS, URINE, AMP (test code = 65033) TEST NOT PERFORMED Florin F AustinGC AND CHLAMYDIA, AMPLIFIED, [id number] 00:00:00* Test Item Value Reference Range Interpretation Comme nts GONORRHEA, TMA (test code = 78855) TEST NOT PERFORMED CHLAMYDIA, TMA (test code = 39576) TEST NOT PERFORMED Florin F AustinTRICHOMONAS, URINE, [id number] 00:00:00* Test Item Value Reference Range Interpretation Comme nts TRICHOMONAS, URINE, AMP (test code = 15232) TEST NOT PERFORMED Florin F AustinGC AND CHLAMYDIA, AMPLIFIED, [id number] 00:00:00* Test Item Value Reference Range Interpretation Comme nts GONORRHEA, TMA (test code = 59732) TEST NOT PERFORMED CHLAMYDIA, TMA (test code = 19300) TEST NOT PERFORMED Florin F AustinTRICHOMONAS, URINE, [id number] 00:00:00* Test Item Value Reference Range Interpretation Comme nts TRICHOMONAS, URINE, AMP (test code = 68216) TEST NOT PERFORMED Florin F AustinGC AND CHLAMYDIA, AMPLIFIED, [id number] 00:00:00* Test Item Value Reference Range Interpretation Comme nts GONORRHEA, TMA (test code = 14018) TEST NOT PERFORMED CHLAMYDIA, TMA (test code = 24869) TEST NOT PERFORMED Florin Leona NaylorTRICHOMONAS, URINE, [id number] 00:00:00* Test Item Value Reference Range Interpretation Comme nts TRICHOMONAS, URINE, AMP (test code = 99949) TEST NOT PERFORMED Florin Leona AustinGC AND CHLAMYDIA, AMPLIFIED, [id number] 00:00:00* Test Item Value Reference Range Interpretation Comme nts GONORRHEA, TMA (test code = 07183) TEST NOT PERFORMED CHLAMYDIA, TMA (test code = 48435) TEST NOT PERFORMED Florin Delgadillo [id number]-2 (COVID-19) by RT-PCR (HIGH RISK)2020-01-01 00:00:00* Test Item Value Reference Range Interpretation Comme nts SARS-CoV-2 INTERPRETATION (test code = 69800) Negative SOURCE (test code = 48011) Nasal_Swab_in _VTM__ UTM Florin Delgadillo TqdouhDUUF-GbV-2 (COVID-19) by RT-PCR (HIGH RISK)2020-01-01 00:00:00* Test Item Value Reference Range Interpretation Comme nts SARS-CoV-2 INTERPRETATION (test code = 63799) Negative SOURCE (test code = 90717) Nasal_Swab_in _VTM__ UTM Florin F ZltvjxSURL-VqA-2 (COVID-19) by RT-PCR (HIGH RISK)2020-01-01 00:00:00* Test Item Value Reference Range Interpretation Comme nts SARS-CoV-2 INTERPRETATION (test code = 98109) Negative SOURCE (test code = 36738) Nasal_Swab_in _VTM__ UTM Florin F QlqqmtXXMG-PgA-6 (COVID-19) by RT-PCR (HIGH RISK)2020-01-01 00:00:00* Test Item Value Reference Range Interpretation Comme nts SARS-CoV-2 INTERPRETATION (test code = 08163) Negative SOURCE (test code = 15599) Nasal_Swab_in _VTM__ UTM Florin F AustinCULTURE, URINE [ADDED]2019-12-27 00:00:00* Test Item Value Reference Range Interpretation Comme nts CULTURE, URINE (test code = 62357) SPECIMEN NUMBER: [id number] Florin Delgadillo AustinCULTURE, URINE [ADDED]2019-12-27 00:00:00* Test Item Value Reference Range Interpretation Comme nts CULTURE, URINE (test code = 98845) SPECIMEN NUMBER: [id number] Florin NalyorCULTURE, URINE [ADDED]2019-12-27 00:00:00* Test Item Value Reference Range Interpretation Comme nts CULTURE, URINE (test code = 80646) SPECIMEN NUMBER: [id number] Florin NaylorCULTURE, URINE [ADDED]2019-12-27 00:00:00* Test Item Value Reference Range Interpretation Comme nts CULTURE, URINE (test code = 42634) SPECIMEN NUMBER: [id number] Florin Delgadillo AustinVAGINAL PATHOGENS DNA [id number] 00:00:00* Test Item Value Reference Range Interpretation Comme nts RACHELLE SPECIES (test code = ) POSITIVE G. VAGINALIS (test code = 25739) POSITIVE T. VAGINALIS (test code = 05540) NEGATIVE Florin Delgadillo AustinVAGINAL PATHOGENS DNA [id number] 00:00:00* Test Item Value Reference Range Interpretation Comme nts RACHELLE SPECIES (test code = 79255) POSITIVE G. VAGINALIS (test code = 30306) POSITIVE T. VAGINALIS (test code = 74516) NEGATIVE Florin Delgadillo AustinVAGINAL PATHOGENS DNA [id number] 00:00:00* Test Item Value Reference Range Interpretation Comme nts RACHELLE SPECIES (test code = 44421) POSITIVE G. VAGINALIS (test code = 08451) POSITIVE T. VAGINALIS (test code = 21202) NEGATIVE Florin Delgadillo AustinVAGINAL PATHOGENS DNA [id number] 00:00:00* Test Item Value Reference Range Interpretation Comme nts RACHELLE SPECIES (test code = 04966) POSITIVE G. VAGINALIS (test code = 53823) POSITIVE T. VAGINALIS (test code = 44878) NEGATIVE Florin Delgadillo WvbbqxOGXV-EnG-7 (COVID-19) by RT-PCR (HIGH RISK)2019-12-25 00:00:00* Test Item Value Reference Range Interpretation Comme nts SARS-CoV-2 INTERPRETATION (test code = 12075) Negative SOURCE (test code = 85921) NASOPHARYNGEA L_SWAB _IN_VTM__UTM Florin Delgadillo RdnmddSKHZ-PcE-4 (COVID-19) by RT-PCR (HIGH RISK)2019-12-25 00:00:00* Test Item Value Reference Range Interpretation Comme nts SARS-CoV-2 INTERPRETATION (test code = 01037) Negative SOURCE (test code = 22762) NASOPHARYNGEA L_SWAB _IN_VTM__UTM Florin Delgadillo MdlfeuBXTS-FtM-8 (COVID-19) by RT-PCR (HIGH RISK)2019-12-25 00:00:00* Test Item Value Reference Range Interpretation Comme nts SARS-CoV-2 INTERPRETATION (test code = 51014) Negative SOURCE (test code = 73974) NASOPHARYNGEA L_SWAB _IN_VTM__UTM Florin Delgadillo FfunmmPCBQ-GnO-4 (COVID-19) by RT-PCR (HIGH RISK)2019-12-25 00:00:00* Test Item Value Reference Range Interpretation Comme nts SARS-CoV-2 INTERPRETATION (test code = 80763) Negative SOURCE (test code = 86293) NASOPHARYNGEA L_SWAB _IN_VTM__UTM Florin Delgadillo AustinBV/VAGINITIS PANEL DNA [id number] 00:00:00* Test Item Value Reference Range Interpretation Comme nts TRICHOMONAS: (test code = 6568-0) NOT DETECTED GARDNERELLA: (test code = 6410-5) DETECTED RACHELLE: (test code = 38493-4) NOT DETECTED Florin Delgadillo AustinBV/VAGINITIS PANEL DNA [id number] 00:00:00* Test Item Value Reference Range Interpretation Comme nts TRICHOMONAS: (test code = 6568-0) NOT DETECTED GARDNERELLA: (test code = 6410-5) DETECTED RACHELLE: (test code = 52201-0) NOT DETECTED Florin F AustinBV/VAGINITIS PANEL DNA [id number] 00:00:00* Test Item Value Reference Range Interpretation Comme nts TRICHOMONAS: (test code = 6568-0) NOT DETECTED GARDNERELLA: (test code = 6410-5) DETECTED RACHELLE: (test code = 03891-0) NOT DETECTED Florin Delgadillo AustinBV/VAGINITIS PANEL DNA [id number] 00:00:00* Test Item Value Reference Range Interpretation Comme nts TRICHOMONAS: (test code = 6568-0) NOT DETECTED GARDNERELLA: (test code = 6410-5) DETECTED RACHELLE: (test code = 10817-9) NOT DETECTED Florin NaylorCHLAMYDIA/N. GONORRHOEAE RNA, [id number] 00:00:00* Test Item Value Reference Range Interpretation Comme nts CHLAMYDIA TRACHOMATIS RNA, T MA, UROGENITAL (test code = 92379-3) NOT DETECTED NEISSERIA GONORRHOEAE RNA, T MA, UROGENITAL (test code = 47496-0) NOT DETECTED Florin NaylorHEPATITIS PANEL, [id number] 00:00:00* Test Item Value Reference Range Interpretation Comme nts HEPATITIS A AB, TOTAL (test code = 63648-6) REACTIVE HEPATITIS B SURFACE ANTIBODY QL (test code = 07932-9) NON-REACTIVE HEPATITIS B SURFACE ANTIGEN (test code = 5196-1) NON-REACTIVE CONFIRMATION (test code = 7905-3) DNR HEPATITIS B CORE AB TOTAL (t est code = 27289-9) NON-REACTIVE HEPATITIS C ANTIBODY (test c ode = 58174-5) NON-REACTIVE SIGNAL TO CUT-OFF (test code = 87168-5) 0.01 Florin Delgadillo AustinRPR (MONITOR) W/REFL [id number] 00:00:00* Test Item Value Reference Range Interpretation Comme nts RPR (MONITOR) W/REFL TITER ( test code = 45846-5) NON-REACTIVE Florin Delgadillo AustinHCG,TOTAL,QL W/REFL TO [id number] 00:00:00* Test Item Value Reference Range Interpretation Comme nts HCG, TOTAL, QL (test code = 2110-5) NEGATIVE Florin Delgadillo AustinBV/VAGINITIS PANEL DNA [id number] 00:00:00* Test Item Value Reference Range Interpretation Comme nts TRICHOMONAS: (test code = 6568-0) NOT DETECTED GARDNERELLA: (test code = 6410-5) DETECTED RACHELLE: (test code = 21793-6) NOT DETECTED Florin NaylorHIV 1/2 ANTIGEN/ANTIBODY,FOURTH GENERATION [id number] 00:00:00* Test Item Value Reference Range Interpretation Comme nts HIV AG/AB, 4TH GEN (test cod e = 93034-3) NON-REACTIVE Florin Delgadillo AustinCHLAMYDIA/N. GONORRHOEAE RNA, [id number] 00:00:00* Test Item Value Reference Range Interpretation Comme nts CHLAMYDIA TRACHOMATIS RNA, T MA, UROGENITAL (test code = 39504-5) NOT DETECTED NEISSERIA GONORRHOEAE RNA, T MA, UROGENITAL (test code = 74423-4) NOT DETECTED Florin NaylorHEPATITIS PANEL, [id number] 00:00:00* Test Item Value Reference Range Interpretation Comme nts HEPATITIS A AB, TOTAL (test code = 05193-6) REACTIVE HEPATITIS B SURFACE ANTIBODY QL (test code = 67085-1) NON-REACTIVE HEPATITIS B SURFACE ANTIGEN (test code = 5196-1) NON-REACTIVE CONFIRMATION (test code = 7905-3) DNR HEPATITIS B CORE AB TOTAL (t est code = 74071-8) NON-REACTIVE HEPATITIS C ANTIBODY (test c ode = 68468-4) NON-REACTIVE SIGNAL TO CUT-OFF (test code = 17226-8) 0.01 Florin Delgadillo AustinRPR (MONITOR) W/REFL [id number] 00:00:00* Test Item Value Reference Range Interpretation Comme nts RPR (MONITOR) W/REFL TITER ( test code = 77465-7) NON-REACTIVE Florin Delgadillo AustinHCG,TOTAL,QL W/REFL TO [id number] 00:00:00* Test Item Value Reference Range Interpretation Comme nts HCG, TOTAL, QL (test code = 2110-5) NEGATIVE Florin Delgadillo AustinBV/VAGINITIS PANEL DNA [id number] 00:00:00* Test Item Value Reference Range Interpretation Comme nts TRICHOMONAS: (test code = 6568-0) NOT DETECTED GARDNERELLA: (test code = 6410-5) DETECTED RACHELLE: (test code = 57014-6) NOT DETECTED Florin NaylorHIV 1/2 ANTIGEN/ANTIBODY,FOURTH GENERATION [id number] 00:00:00* Test Item Value Reference Range Interpretation Comme nts HIV AG/AB, 4TH GEN (test cod e = 20960-9) NON-REACTIVE Florin Delgadillo AustinCHLAMYDIA/N. GONORRHOEAE RNA, [id number] 00:00:00* Test Item Value Reference Range Interpretation Comme nts CHLAMYDIA TRACHOMATIS RNA, T MA, UROGENITAL (test code = 85172-1) NOT DETECTED NEISSERIA GONORRHOEAE RNA, T MA, UROGENITAL (test code = 02672-0) NOT DETECTED Florin NaylorHEPATITIS PANEL, [id number] 00:00:00* Test Item Value Reference Range Interpretation Comme nts HEPATITIS A AB, TOTAL (test code = 33690-1) REACTIVE HEPATITIS B SURFACE ANTIBODY QL (test code = 81484-5) NON-REACTIVE HEPATITIS B SURFACE ANTIGEN (test code = 5196-1) NON-REACTIVE CONFIRMATION (test code = 7905-3) DNR HEPATITIS B CORE AB TOTAL (t est code = 26971-1) NON-REACTIVE HEPATITIS C ANTIBODY (test c ode = 24311-0) NON-REACTIVE SIGNAL TO CUT-OFF (test code = 01648-9) 0.01 Florin Delgadillo AustinRPR (MONITOR) W/REFL [id number] 00:00:00* Test Item Value Reference Range Interpretation Comme nts RPR (MONITOR) W/REFL TITER ( test code = 94038-6) NON-REACTIVE Florin F AustinHCG,TOTAL,QL W/REFL TO [id number] 00:00:00* Test Item Value Reference Range Interpretation Comme nts HCG, TOTAL, QL (test code = 2110-5) NEGATIVE Florin Delgadillo AustinBV/VAGINITIS PANEL DNA [id number] 00:00:00* Test Item Value Reference Range Interpretation Comme nts TRICHOMONAS: (test code = 6568-0) NOT DETECTED GARDNERELLA: (test code = 6410-5) DETECTED RACHELLE: (test code = 15114-8) NOT DETECTED Florin Delgadillo AustinHIV 1/2 ANTIGEN/ANTIBODY,FOURTH GENERATION [id number] 00:00:00* Test Item Value Reference Range Interpretation Comme nts HIV AG/AB, 4TH GEN (test cod e = 40324-8) NON-REACTIVE Florin Delgadillo AustinCHLAMYDIA/N. GONORRHOEAE RNA, [id number] 00:00:00* Test Item Value Reference Range Interpretation Comme nts CHLAMYDIA TRACHOMATIS RNA, T MA, UROGENITAL (test code = 84634-0) NOT DETECTED NEISSERIA GONORRHOEAE RNA, T MA, UROGENITAL (test code = 81464-7) NOT DETECTED Florin NaylorHEPATITIS PANEL, [id number] 00:00:00* Test Item Value Reference Range Interpretation Comme nts HEPATITIS A AB, TOTAL (test code = 65337-7) REACTIVE HEPATITIS B SURFACE ANTIBODY QL (test code = 52149-6) NON-REACTIVE HEPATITIS B SURFACE ANTIGEN (test code = 5196-1) NON-REACTIVE CONFIRMATION (test code = 7905-3) DNR HEPATITIS B CORE AB TOTAL (t est code = 47337-6) NON-REACTIVE HEPATITIS C ANTIBODY (test c ode = 78299-0) NON-REACTIVE SIGNAL TO CUT-OFF (test code = 80838-2) 0.01 Florin Delgadillo AustinRPR (MONITOR) W/REFL [id number] 00:00:00* Test Item Value Reference Range Interpretation Comme nts RPR (MONITOR) W/REFL TITER ( test code = 24694-5) NON-REACTIVE Florin Delgadillo AustinHCG,TOTAL,QL W/REFL TO [id number] 00:00:00* Test Item Value Reference Range Interpretation Comme nts HCG, TOTAL, QL (test code = 2110-5) NEGATIVE Florin NaylorBV/VAGINITIS PANEL DNA [id number] 00:00:00* Test Item Value Reference Range Interpretation Comme nts TRICHOMONAS: (test code = 6568-0) NOT DETECTED GARDNERELLA: (test code = 6410-5) DETECTED RACHELLE: (test code = 06316-5) NOT DETECTED Florin NaylorHIV 1/2 ANTIGEN/ANTIBODY,FOURTH GENERATION [id number] 00:00:00* Test Item Value Reference Range Interpretation Comme nts HIV AG/AB, 4TH GEN (test cod e = 86365-7) NON-REACTIVE Florin Delgadillo AustinHCG, [id number] 00:00:00* Test Item Value Reference Range Interpretation Comme nts HCG, QUANTITATIVE (test code = 2506) <5 MIU/ML Florin Delgadillo AustinHCG, [id number] 00:00:00* Test Item Value Reference Range Interpretation Comme nts HCG, QUANTITATIVE (test code = 2506) <5 MIU/ML Florin F AustinHCG, [id number] 00:00:00* Test Item Value Reference Range Interpretation Comme nts HCG, QUANTITATIVE (test code = 2506) <5 MIU/ML Florin F AustinHCG, [id number] 00:00:00* Test Item Value Reference Range Interpretation Comme nts HCG, QUANTITATIVE (test code = 2506) <5 MIU/ML Florin F AustinCHLAMYDIA/N. GONORRHOEAE RNA, [id number] 00:00:00* Test Item Value Reference Range Interpretation Comme nts CHLAMYDIA TRACHOMATIS RNA, T MA, UROGENITAL (test code = 50687-9) NOT DETECTED NEISSERIA GONORRHOEAE RNA, T MA, UROGENITAL (test code = 07136-5) NOT DETECTED Florin F AustinCHLAMYDIA/N. GONORRHOEAE RNA, [id number] 00:00:00* Test Item Value Reference Range Interpretation Comme nts CHLAMYDIA TRACHOMATIS RNA, T MA, UROGENITAL (test code = 16180-6) NOT DETECTED NEISSERIA GONORRHOEAE RNA, T MA, UROGENITAL (test code = 24841-9) NOT DETECTED Florin F AustinCHLAMYDIA/N. GONORRHOEAE RNA, [id number] 00:00:00* Test Item Value Reference Range Interpretation Comme nts CHLAMYDIA TRACHOMATIS RNA, T MA, UROGENITAL (test code = 18111-2) NOT DETECTED NEISSERIA GONORRHOEAE RNA, T MA, UROGENITAL (test code = 87813-1) NOT DETECTED Florin F AustinCHLAMYDIA/N. GONORRHOEAE RNA, [id number] 00:00:00* Test Item Value Reference Range Interpretation Comme nts CHLAMYDIA TRACHOMATIS RNA, T MA, UROGENITAL (test code = 78157-8) NOT DETECTED NEISSERIA GONORRHOEAE RNA, T MA, UROGENITAL (test code = 66654-1) NOT DETECTED Florin F Dayday
--- NOTE | 2024-05-18 14:37 | RAD REPORT ---
EXAMINATION: CT HEAD WITHOUT CONTRAST CT CERVICAL SPINE WITHOUT CONTRAST CLINICAL INDICATION: Female, 23 years old. TRAUMA TECHNIQUE: Axial CT images from the skull base to the vertex without intravenous contrast. Axial CT i mages through the cervical spine were obtained without intravenous contrast. Sagittal and coronal reformatted images were created from the data set. Coronal and sagittal reformatted images were creat ed from the data set. One or more of the following dose reduction techniques were used: Automated exposure control, adjustment of the mA and/or kV according to patient size, and/or iterative reconstr uction. Unless otherwise specified, incidental findings do not require dedicated imaging follow-up. [id number]. COMPARISON: No prior exam. FINDINGS: Head: INTRACRANIAL: No acute intracranial hemorrhage. No hydrocephalus. No mass effect or midline shift. No significant white matter disease VASCULATURE: No visualized abnormalities in the arteries or dural venous sinuses. SCALP/SKULL: No significant soft tissue or osseous abnormalities. SINUSES: The visualized paranasal sinuses and mastoid air cells are predominantly clear. Cervical spine: ALIGNMENT: Reversal of the normal cervical lordosis. BONE: Vertebral body heights are maintained. No aggressive osseous lesions. DEGENERATIVE CHANGES: None significant. SOFT TISSUE: No significant abnormalities in the soft tissue of the neck. The visualized lung apices are clear. IMPRESSION: No acute intracranial abnormality. No acute fracture or traumatic malalignment of the cervical spine.
--- NOTE | 2024-05-18 15:09 | ER ---
Nurse's Notes [facility] Name: Zia Eric Age: 23 yrs Sex: Female : 2000 Arrival Date: 05/18/2024 Time: 13:19 Bed IW2 Private MD: Diagnosis: Unspecified injury of head, initial encounter Presentation: 05/18 14:04 Chief complaint: Window fell and and hit head yesterday. Vomit x 1. Negative LOC. hb Coronavirus screen: At this time, the client does not indicate any symptoms associated with coronavirus-19. Ebola Screen: No symptoms or risks identified at this time. Initial Sepsis Screen: Does the patient meet any 2 criteria? No. Patient's initial sepsis screen is negative. Does the patient have a suspected source of infection? No. Patient's initial sepsis screen is negative. Risk Assessment: Do you want to hurt yourself or someone else? Patient reports no desire to harm self or others. Onset of symptoms was May 17, 2024. 14:04 Method Of Arrival: Ambulatory hb 14:04 Acuity: EJ 3 hb 15:21 Mechanism of Injury: resulted from a direct blow, window. ll1 Triage Assessment: 15:20 General: Appears uncomfortable. Neuro: Level of Consciousness is awake, alert, obeys ll1 commands. 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 - Infectious Disease History:: Denies. - Social history:: Smoking status: Reported history of juuling and/or vaping. Screenin:20 [facility] ED Fall Risk Assessment (Adult) History of falling in the last 3 months, ll1 including since admission No falls in past 3 months (0 pts) Confusion or Disorientation No (0 pts) Intoxicated or Sedated No (0 pts) Impaired Gait No (0 pts) Mobility Assist Device Used No (0 pt) Altered Elimination No (0 pt) Score/Fall Risk Level 0 - 2 = Low Risk Maintained a safe environment, Hourly rounding (assess needs \T\ fall precautionary measures) done. Abuse screen: Denies threats or abuse. Nutritional screening: No deficits noted. Tuberculosis screening: No symptoms or risk factors identified. Assessment: 15:19 General: Appears uncomfortable, Behavior is calm, cooperative, appropriate for age. ll1 Pain: Complains of pain in scalp Quality of pain is described as aching. Neuro: Reports headache. GI: Reports nausea, vomiting. Vital Signs: 14:04 BP 131 / 79; Pulse 75; Resp 16; Temp 97.9; Pulse Ox 100% on R/A; Weight 83.91 kg; hb Height 5 ft. 6 in. ; Pain 9/10; 15:20 Resp 16; ll1 14:04 Body Mass Index 29.86 (83.91 kg, 167.64 cm) hb 14:04 Pain Scale: Adult hb Jay Coma Score: 15:21 Eye Response: spontaneous(4). Motor Response: obeys commands(6). Verbal Response: ll1 oriented(5). Total: 15. ED Course: 13:21 Patient arrived in ED. im 13:24 Zev Silveira DO is Attending Physician. ms3 14:07 Triage completed. hb 14:07 Arm band placed on. hb 14:26 CT Head C Spine In Process Unspecified. EDMS 15:08 John Clark DO is Referral Physician. ms3 15:20 No provider procedures requiring assistance completed. Patient did not have IV access ll1 during this emergency room visit. 15:21 Patient has correct armband on for positive identification. Provided Education on: ll1 return to ED for worsening symptoms. Administered Medications: No medications were administered Medication: 15:21 VIS not applicable for this client. ll1 Outcome: 15:09 Discharge ordered by . ms3 15:20 Discharged to home ambulatory, ll1 15:20 Condition: stable 15:20 Discharge instructions given to patient, Instructed on discharge instructions, follow up and referral plans. Demonstrated understanding of instructions, follow-up care, 15:21 Patient left the ED. ll1 Signatures: Dispatcher [employer] EDMS Earline Dueñas RN KATHLEEN Nieves Dias RN RN ll1 Zev Silveira DO DO ms3 Elizabeth Saldana im
--- NOTE | 2024-05-18 15:10 | EDPHYS ---
Physician Documentation [facility] Name: Zia Eric Age: 23 yrs Sex: Female : 2000 Arrival Date: 05/18/2024 Time: 13:19 Bed IW2 Private MD: ED Physician Zev Silveira HPI: 05/18 14:07 This 23 yrs old Black Female presents to ER via Ambulatory with complaints of Head ms3 Injury-Adult. 14:07 Zia Eric is a 23-year-old female presenting to the emergency department for a ms3 head injury. The patient reports a window fell and hit her head. She confirms not passing out during the incident but experienced seeing stars. She is experiencing head pain that she rates a 9/10. The incident occurred yesterday afternoon. She has not vomited since the injury. She reports no neck pain or other associated symptoms. . 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 - Infectious Disease History:: Denies. - Social history:: Smoking status: Reported history of juuling and/or vaping. ROS: 15:10 Constitutional: Negative for fever, and chills. Cardiovascular: Negative for chest ms3 pain, and palpitations. Respiratory: Negative for shortness of breath, cough, wheezing, and pleuritic chest pain, Abdomen/GI: Negative for abdominal pain, nausea, vomiting, diarrhea, and constipation, MS/Extremity: Negative for injury and deformity, Exam: 15:10 Constitutional: This is a well developed, well nourished patient who is awake, alert, ms3 and in no acute distress. Cardiovascular: Regular rate and rhythm with a normal S1 and S2. No gallops, murmurs, or rubs. Normal PMI, no JVD. No pulse deficits. Respiratory: Lungs have equal breath sounds bilaterally, clear to auscultation and percussion. No rales, rhonchi or wheezes noted. No increased work of breathing, no retractions or nasal flaring. Abdomen/GI: Soft, non-tender, with normal bowel sounds. No distension or tympany. No guarding or rebound. No evidence of tenderness throughout. Skin: Warm, dry with normal turgor. Normal color with no rashes, no lesions, and no evidence of cellulitis. MS/ Extremity: Pulses equal, no cyanosis. Neurovascular intact. Full, normal range of motion. Neuro: Awake and alert, GCS 15, oriented to person, place, time, and situation. Cranial nerves II-XII grossly intact. Motor strength 5/5 in all extremities. Sensory grossly intact. Cerebellar exam normal. Normal gait. Vital Signs: 14:04 BP 131 / 79; Pulse 75; Resp 16; Temp 97.9; Pulse Ox 100% on R/A; Weight 83.91 kg; hb Height 5 ft. 6 in. ; Pain 9/10; 15:20 Resp 16; ll1 14:04 Body Mass Index 29.86 (83.91 kg, 167.64 cm) hb 14:04 Pain Scale: Adult hb Jay Coma Score: 15:21 Eye Response: spontaneous(4). Motor Response: obeys commands(6). Verbal Response: ll1 oriented(5). Total: 15. MDM: 14:10 Medical Screening Exam initiated ms3 15:10 Differential diagnosis: Contusion of Intracranial bleed- Concussion without LOC. Data ms3 reviewed: vital signs, nurses notes, radiologic studies, and as a result, I will discharge patient. Counseling: I had a detailed discussion with the patient and/or guardian regarding the historical points, exam findings, and any diagnostic results supporting the discharge/admit diagnosis, radiology results, the need for outpatient follow up, to return to the emergency department if symptoms worsen or persist or if there are any questions or concerns that arise at home. Special discussion: I discussed with the patient/guardian in detail that at this point there is no indication for admission to the hospital. It is understood, however, that if the symptoms persist or worsen the patient needs to return immediately for re-evaluation. ED course: Patient is alert and orient x 4, no apparent distress, nontoxic-appearing, speaking full sentences on reevaluation. Patient to follow-up with Dr. Clark in 2 to 3 days. Patient understands and agrees with plan. All questions were answered. Return precautions discussed include worsening symptoms, or any other concerns. 02/03 14:07 Order name: Test, Urine ms3 05/18 14:07 Order name: CT Head C Spine; Complete Time: 14:40 ms3 Administered Medications: No medications were administered Disposition Summary: 05/18/24 15:09 Discharge Ordered Notes: Location: Home ms3 Condition: Stable ms3 Diagnosis - Unspecified injury of head, initial encounter ms3 Followup: ms3 - With: John Clark DO - When: 2 - 3 days - Reason: Recheck today's complaints Discharge Instructions: - Discharge Summary Sheet ms3 - Head Injury, Adult ms3 Forms: - Medication Reconciliation Form ms3 - Antibiotic Education ms3 - Prescription Opioid Use ms3 - Patient Portal Instructions ms3 - Leadership Thank You Letter ms3 Signatures: Dispatcher [employer] Earline Arambula, RN RN Zev Manuel DO DO ms3 Corrections: (The following items were deleted from the chart) 14:08 14:08 Test, Urine+[id number] ordered. EDMS EDMS 14:42 14:07 . ms3 ms3
[2024-05-18 15:15] LABS: Specific Gravity 1.016 (1.005-1.030)
[2024-05-18 15:25] VITALS: BP 131/79; TEMP 97.9; O2SAT 100
== END 2024-05-18 15:21 | disposition home or self-care (01) ==
LOC: ER 13:19
DX: S09.90XA Unspecified injury of head, initial encounter (principal)
CPT/HCPCS: 70450; 72125; 81025; 99282